=== PATIENT | male | born 1960 | race Caucasian/White ===

== ENCOUNTER 2019-12-04 19:06 | Observation (INO) ==
[2019-12-04] MEDS ORDERED: SODIUM CHLORIDE 0.9% 1000ML 2,000 ML IV ONE (19:30)
[2019-12-04] MEDS ORDERED: KETOROLAC TROMETHAMINE 15 MG/ML VIAL IV ONE (19:30)
[2019-12-04 20:14] LABS: Basophils # (auto) 0.03 K/uL (0-0.2); Basophils % (auto) 0.2 %; Eosinophils # (auto) 0.05 K/uL (0-0.5); Eosinophils % (auto) 0.4 %; Hematocrit (blood only) 40.1 % (42-52); Hemoglobin 14.4 g/dL (14.0-18.0); Immature Granulocytes # (auto) 0.06 K/uL (0.00-0.02); Immature Granulocytes % (auto) 0.5 %; Lymphocytes # (auto) 2.06 K/uL (1.2-3.4); Mean Corpuscular Hemoglobin 30.3 pg (25-34); Mean Corpuscular Hgb Conc 35.9 g/dL (32-36); Mean Corpuscular Volume 84.2 fL (80-100); Mean Platelet Volume 10.4 fL (7.4-10.4); Monocytes # (auto) 1.31 K/uL (0.11-0.59); Monocytes % (auto) 10.2 %; Neutrophils # (auto) 9.35 K/uL (1.4-6.5); Neutrophils % (auto) 72.7 %; Platelet Count 281 K/uL (130-400); RDW Coefficient of Variation 13.1 % (11.5-14.5); RDW Standard Deviation 39.7 fL (36.4-46.3); Red Blood Count 4.76 M/uL (4.7-6.1); White Blood Count 12.86 K/uL (4.8-10.8)
[2019-12-04 20:17] LABS: Appearance Urine Cloudy (Clear); Bacteria Urine Automated Negative (Negative); Bilirubin Urine Negative (Negative); Blood Urine 3+ (Negative); Color Urine Yellow; Glucose Urine UA Negative (Negative); Ketones Urine 1+ (Negative); Leukocyte Esterase Urine Negative (Negative); Nitrite Urine Negative (Negative); Protein Urine Negative (Negative); RBC Urine Automated 0-4 /hpf (0-4); Specific Gravity Urine 1.015 (1.000-1.030); Urobilinogen Urine Negative (Negative)
--- NOTE | 2019-12-04 20:17 | Emergency Department Note ---
Impression & Plan CODY (acute kidney injury), HTN (hypertension), Acute dehydration, Back pain ED Provider Note NAME: RUTH CAMP AGE: 59 SEX: M : 1960 ARRIVES VIA: Walk-In INFORMANT: Patient ED PROVIDER(S): Kishan Merritt DO CHIEF COMPLAINT: Back pain HPI: Patient is a 59-year-old male presents the ER for bilateral back pain. He notes this started in the past 24 hours while working in the [employer] since yesterday. He denies any weakness or numbness in his legs. No dysuria urgency or frequency. He notes he has been drinking a lot of fluids but urinating much less frequently. He denies any dysuria, urgency or frequency. Does not feel as though he has to urinate at this time. No belly pain. No chest pain shortness of breath. No other exacerbating or remitting factors with the exception that his pain is worse with lifting and twisting turning and bending. He notes it is also better when he walks hunched over. ROS: See above HPI for pertinent positives & negatives. A total of 10 systems reviewed and were otherwise negative. PAST MEDICAL HISTORY:See Below PAST SURGICAL HISTORY:See Below FAMILY HISTORY:See Below SOCIAL HISTORY:See Below HOME MEDICATIONS:See Below ALLERGIES:See Below VITALS:See Below PHYSICAL EXAMINATION: GENERAL: Sitting up in bed, alert, well appearing, well nourished, no distress, non-toxic EYE EXAM: normal conjunctiva. OROPHARYNX: no exudate, no erythema, lips, buccal mucosa, and tongue normal and mucous membranes are moist NECK: supple, no nuchal rigidity, no adenopathy, non-tender LUNGS: Clear to auscultation. Normal chest wall mechanics HEART: no murmurs, S1 normal and S2 normal ABDOMEN: abdomen soft, non-tender, normo-active bowel sounds, no masses, no rebound or guarding. BACK: Back is symmetrical on inspection and there is no deformity, no midline tenderness, tenderness in the bilateral flanks. SKIN: no rashes and no bruising UPPER EXTREMITIES: upper extremities are grossly normal. LOWER EXTREMITIES: No pitting edema. Flexion and extension of the hips, knees, ankles, and EHL 5/5 bilaterally. Gross sensation is intact. DPs are 2/4 bilateral. Ambulates without difficulty NEURO EXAM: Normal sensorium, cranial nerves II-XII grossly intact, normal speech, no gross weakness of arms. MEDICAL DECISION MAKING: Patient is a 59-year-old male who presents the ER for back pain. He notes he started working within the past 48 hours. He has lower back pain which is worse with twisting turning and bending. He notes he has also been drinking a lot more fluids but has not been urinating. He notes he is urinated once today after 14 bottles of liquids. IV was established blood work was obtained. Labs show mild leukocytosis 12,000. No significant anemia. BMP with mild hyponatremia. Creatinine significantly elevated 2.44. Lactate negative. LFTs are negative. Lipase was normal. UA with a small amount hematuria. Patient was given 2 L IV fluids. X-rays of the lumbar spine were unremarkable. Patient was updated bedside. Discussed with the hospitalist for admission secondary to CODY and dehydration. Triage Nursing notes reviewed. Prior medical records reviewed Vital Signs: reviewed and remarkable for hypertensive and tachycardic Differential diagnosis: Differential diagnoses includes but is not limited to lumbar radiculopathy, kidney stone, muscle strain, facture, cauda equina, mass, and disc herniation. ER treatment provided: See below Diagnostics interpreted by me: ECG: none Cardiac Monitoring: An order was placed for continuous cardiac monitoring. The monitor shows a rate of 101 with sinus rhythm. Laboratory studies: As stated above and show below. Imaging studies: X-rays of the lumbar spine show no acute fractures. Consultation(s): Discussed with Dr. Davis for admission. ED COURSE: Procedures: none Critical Care: None Past Med/Surg History Social History Preferred Language: Vietnamese Feels Safe at Home: Yes Smoking Status: Current some day smoker Allergies Allergies Allergy/AdvReac Type Severity Reaction Status Date / Time lamotrigine [From Lamictal] Allergy Rash Verified 12/04/19 21:24 red (food color) Allergy Rash Verified 12/04/19 21:24 Sulfa (Sulfonamide Allergy Rash Verified 12/04/19 21:24 Antibiotics) Home Meds Home Medications Medication Instructions Recorded Confirmed divalproex 250 mg PO DAILY #60 06/12/16 12/04/19 buspirone 10 mg PO DAILY 09/18/19 12/04/19 gabapentin [Neurontin] 300 mg PO DAILY 09/18/19 12/04/19 lisinopril 10 mg PO DAILY 09/18/19 12/04/19 metformin 1,000 mg PO DAILY 09/18/19 12/04/19 naltrexone 50 mg PO DAILY 09/18/19 12/04/19 acetaminophen [Tylenol] 650 mg PO TID PRN 12/04/19 12/04/19 lurasidone [Latuda] 40 mg PO DAILY 12/04/19 12/04/19 magnesium oxide 400 mg PO DAILY 12/04/19 12/04/19 sod phos di, mono-K phos mono 1 tab PO DAILY 12/04/19 12/04/19 [Phosphorous] venlafaxine 37.5 mg PO DAILY 12/04/19 12/04/19 venlafaxine 75 mg PO DAILY 12/04/19 12/04/19 Results & Data (ED) Vital Signs Vital Signs - 24 hr 12/04/19 19:12 12/04/19 21:07 12/04/19 21:08 Temperature 37.1 C Temperature Source Oral Pulse Rate 110 H Pulse Rate [Apical] 92 H Respiratory Rate 20 18 Respiratory Depth Normal Blood Pressure 142/78 H Blood Pressure [Right Arm] 152/89 H Blood Pressure Mean 99 Blood Pressure Mean [Right Arm] 110 Pulse Oximetry 95 98 98 Oxygen Delivery Method Room Air Room Air Room Air Sepsis Recent Fever Within 48 Hours No Sepsis New/Unexplained Change in Mental Status No Sepsis Action Taken by Nursing No Action Required Laboratory Data Result diagrams: 12/04/19 20:05 12/04/19 20:05 Lab Results 12/04/19 12/04/19 12/04/19 Range/Units 20:05 20:05 20:05 WBC 12.86 H (4.8-10.8) K/uL RBC 4.76 (4.7-6.1) M/uL Hgb 14.4 (14.0-18.0) g/dL Hct 40.1 L (42-52) % MCV 84.2 (80-100) fL MCH 30.3 (25-34) pg MCHC 35.9 (32-36) g/dL RDW Std Deviation 39.7 (36.4-46.3) fL RDW Coeff of Yenny 13.1 (11.5-14.5) % Plt Count 281 (130-400) K/uL MPV 10.4 (7.4-10.4) fL Immature Gran % (Auto) 0.5 % Neut % (Auto) 72.7 % Lymph % (Auto) 16.0 % [place] % (Auto) 10.2 % Eos % (Auto) 0.4 % Baso % (Auto) 0.2 % Immature Gran # (Auto) 0.06 H (0.00-0.02) K/uL Neut # (Auto) 9.35 H (1.4-6.5) K/uL Lymph # (Auto) 2.06 (1.2-3.4) K/uL [place] # (Auto) 1.31 H (0.11-0.59) K/uL Eos # (Auto) 0.05 (0-0.5) K/uL Baso # (Auto) 0.03 (0-0.2) K/uL Sodium 128 L (136-145) mmol/L Potassium 3.9 (3.5-5.1) mmol/L Chloride 94 L (98-107) mmol/L Carbon Dioxide 23 (21-32) mmol/L Anion Gap 11.0 (3-11) BUN 34 H (7-18) mg/dl Creatinine 2.44 H (0.6-1.4) mg/dl Est Cr Clr Drug Dosing 39.0 ml/min Est GFR ( Amer) 32.1 Est GFR (Non-Af Amer) 27.7 BUN/Creatinine Ratio 13.7 (10-20) Glucose 132 H (70-99) mg/dl Osmolality (280-300) mOsm/kg Lactate (0.4-2.0) mmol/L Calcium 9.7 (8.5-10.1) mg/dl Magnesium 2.2 (1.8-2.4) mg/dl Total Bilirubin 0.8 (0.2-1) mg/dl AST 186 H (15-37) U/L ALT 73 (12-78) U/L Alkaline Phosphatase 95 (45-117) U/L Total Protein 7.9 (6.4-8.2) gm/dl Albumin 4.0 (3.4-5.0) gm/dl Globulin 3.9 (2.5-4.0) gm/dl Albumin/Globulin Ratio 1.0 (0.9-2) Lipase 72 L (73-393) U/L Procalcitonin (0-0.5) ng/ml TSH 1.930 (0.300-4.500) uIu/ml Urine Color Yellow Urine Appearance Cloudy A (Clear) Urine pH 5.0 (4.5-7.5) Ur Specific [place] 1.015 (1.000-1.030) Urine Protein Negative (Negative) Urine Glucose (UA) Negative (Negative) Urine Ketones 1+ H (Negative) Urine Blood 3+ H (Negative) Urine Nitrite Negative (Negative) Urine Bilirubin Negative (Negative) Urine Urobilinogen Negative (Negative) Ur Leukocyte Esterase Negative (Negative) Urine WBC (Auto) 1-5 (0-5) /hpf Urine RBC (Auto) 0-4 (0-4) /hpf U Hyaline Cast (Auto) 1-5 (0-5) /lpf U Epithel Cells (Auto) 10-20 H (0-5) /lpf Urine Bacteria (Auto) Negative (Negative) Valproic Acid (50-100) mcg/ml 12/04/19 12/04/19 12/04/19 Range/Units 20:05 20:05 20:05 WBC (4.8-10.8) K/uL RBC (4.7-6.1) M/uL Hgb (14.0-18.0) g/dL Hct (42-52) % MCV (80-100) fL MCH (25-34) pg MCHC (32-36) g/dL RDW Std Deviation (36.4-46.3) fL RDW Coeff of Yenny (11.5-14.5) % Plt Count (130-400) K/uL MPV (7.4-10.4) fL Immature Gran % (Auto) % Neut % (Auto) % Lymph % (Auto) % [place] % (Auto) % Eos % (Auto) % Baso % (Auto) % Immature Gran # (Auto) (0.00-0.02) K/uL Neut # (Auto) (1.4-6.5) K/uL Lymph # (Auto) (1.2-3.4) K/uL [place] # (Auto) (0.11-0.59) K/uL Eos # (Auto) (0-0.5) K/uL Baso # (Auto) (0-0.2) K/uL Sodium (136-145) mmol/L Potassium (3.5-5.1) mmol/L Chloride (98-107) mmol/L Carbon Dioxide (21-32) mmol/L Anion Gap (3-11) BUN (7-18) mg/dl Creatinine (0.6-1.4) mg/dl Est Cr Clr Drug Dosing ml/min Est GFR ( Amer) Est GFR (Non-Af Amer) BUN/Creatinine Ratio (10-20) Glucose (70-99) mg/dl Osmolality 277 L (280-300) mOsm/kg Lactate (0.4-2.0) mmol/L Calcium (8.5-10.1) mg/dl Magnesium (1.8-2.4) mg/dl Total Bilirubin (0.2-1) mg/dl AST (15-37) U/L ALT (12-78) U/L Alkaline Phosphatase (45-117) U/L Total Protein (6.4-8.2) gm/dl Albumin (3.4-5.0) gm/dl Globulin (2.5-4.0) gm/dl Albumin/Globulin Ratio (0.9-2) Lipase (73-393) U/L Procalcitonin 0.35 (0-0.5) ng/ml TSH (0.300-4.500) uIu/ml Urine Color Urine Appearance (Clear) Urine pH (4.5-7.5) Ur Specific [place] (1.000-1.030) Urine Protein (Negative) Urine Glucose (UA) (Negative) Urine Ketones (Negative) Urine Blood (Negative) Urine Nitrite (Negative) Urine Bilirubin (Negative) Urine Urobilinogen (Negative) Ur Leukocyte Esterase (Negative) Urine WBC (Auto) (0-5) /hpf Urine RBC (Auto) (0-4) /hpf U Hyaline Cast (Auto) (0-5) /lpf U Epithel Cells (Auto) (0-5) /lpf Urine Bacteria (Auto) (Negative) Valproic Acid 28 L (50-100) mcg/ml 12/04/19 Range/Units 21:30 WBC (4.8-10.8) K/uL RBC (4.7-6.1) M/uL Hgb (14.0-18.0) g/dL Hct (42-52) % MCV (80-100) fL MCH (25-34) pg MCHC (32-36) g/dL RDW Std Deviation (36.4-46.3) fL RDW Coeff of Yenny (11.5-14.5) % Plt Count (130-400) K/uL MPV (7.4-10.4) fL Immature Gran % (Auto) % Neut % (Auto) % Lymph % (Auto) % [place] % (Auto) % Eos % (Auto) % Baso % (Auto) % Immature Gran # (Auto) (0.00-0.02) K/uL Neut # (Auto) (1.4-6.5) K/uL Lymph # (Auto) (1.2-3.4) K/uL [place] # (Auto) (0.11-0.59) K/uL Eos # (Auto) (0-0.5) K/uL Baso # (Auto) (0-0.2) K/uL Sodium (136-145) mmol/L Potassium (3.5-5.1) mmol/L Chloride (98-107) mmol/L Carbon Dioxide (21-32) mmol/L Anion Gap (3-11) BUN (7-18) mg/dl Creatinine (0.6-1.4) mg/dl Est Cr Clr Drug Dosing ml/min Est GFR ( Amer) Est GFR (Non-Af Amer) BUN/Creatinine Ratio (10-20) Glucose (70-99) mg/dl Osmolality (280-300) mOsm/kg Lactate 1.1 (0.4-2.0) mmol/L Calcium (8.5-10.1) mg/dl Magnesium (1.8-2.4) mg/dl Total Bilirubin (0.2-1) mg/dl AST (15-37) U/L ALT (12-78) U/L Alkaline Phosphatase (45-117) U/L Total Protein (6.4-8.2) gm/dl Albumin (3.4-5.0) gm/dl Globulin (2.5-4.0) gm/dl Albumin/Globulin Ratio (0.9-2) Lipase (73-393) U/L Procalcitonin (0-0.5) ng/ml TSH (0.300-4.500) uIu/ml Urine Color Urine Appearance (Clear) Urine pH (4.5-7.5) Ur Specific [place] (1.000-1.030) Urine Protein (Negative) Urine Glucose (UA) (Negative) Urine Ketones (Negative) Urine Blood (Negative) Urine Nitrite (Negative) Urine Bilirubin (Negative) Urine Urobilinogen (Negative) Ur Leukocyte Esterase (Negative) Urine WBC (Auto) (0-5) /hpf Urine RBC (Auto) (0-4) /hpf U Hyaline Cast (Auto) (0-5) /lpf U Epithel Cells (Auto) (0-5) /lpf Urine Bacteria (Auto) (Negative) Valproic Acid (50-100) mcg/ml Administered Medications Discontinued Medications Clonidine HCl (Catapres) 0.1 mg PO NOW STA Stop: 12/04/19 21:19 Last Admin: 12/04/19 21:57 Dose: Not Given Documented by: [id number] Sodium Chloride (Nss 1000ml) 2,000 mls @ 999 mls/hr IV .Q2H1M ONE Stop: 12/04/19 21:30 Last Infusion: 12/04/19 21:57 Dose: 0 mls/hr Documented by: [id number] Admin: 12/04/19 20:08 Dose: 999 mls/hr Documented by: [id number] Ketorolac Tromethamine (Toradol) 10 mg IV NOW ONE Stop: 12/04/19 19:31 Last Admin: 12/04/19 20:08 Dose: 10 mg Documented by: [id number] Discharge Plan Visit Data Chief Complaint: Flank Pain Stated Complaint: FLANK PAIN ED Provider: Kishan Merritt Discharge Problem: CODY (acute kidney injury), HTN (hypertension), Acute dehydration, Back pain Forms Stand Alone Forms: My [facility] Prescriptions Prescriptions: No Action divalproex 250 mg Tablet Extended Release 24 Hr 250 mg PO DAILY Qty: 60 RF: 0 naltrexone 50 mg tablet 50 mg PO DAILY RF: 0 buspirone 10 mg tablet 10 mg PO DAILY RF: 0 lisinopril 10 mg Tablet 10 mg PO DAILY RF: 0 gabapentin [Neurontin] 300 mg capsule 300 mg PO DAILY RF: 0 metformin 500 mg Tablet Extended Release 24hr 1,000 mg PO DAILY RF: 0 venlafaxine 75 mg capsule,extended release 24hr 75 mg PO DAILY RF: 0 venlafaxine 37.5 mg capsule,extended release 24hr 37.5 mg PO DAILY RF: 0 Latuda 40 mg tablet 40 mg PO DAILY RF: 0 Phosphorous 250 mg Tablet 1 tab PO DAILY RF: 0 magnesium oxide 400 mg magnesium Tablet 400 mg PO DAILY RF: 0 acetaminophen [Tylenol] 325 mg Tablet 650 mg PO TID PRN (Reason: Pain) RF: 0 Discharge Problem: HTN (hypertension) Qualifiers: Hypertension type: unspecified Qualified Code(s): I10 - Essential (primary) hypertension Back pain Qualifiers: Back pain location: low back pain Chronicity: acute Back pain laterality: unspecified Sciatica presence: unspecified whether sciatica present Qualified Code(s): M54.5 - Low back pain
[2019-12-04 20:32] LABS: BUN Creatinine Ratio 13.7 (10-20); Calcium 9.7 mg/dl (8.5-10.1); Est GFR (African American) 32.1; Est GFR (Non-African American) 27.7; Potassium 3.9 mmol/L (3.5-5.1)
[2019-12-04 20:35] LABS: Bilirubin,Total 0.8 mg/dl (0.2-1); Globulin 3.9 gm/dl (2.5-4.0); Total Protein 7.9 gm/dl (6.4-8.2)
--- NOTE | 2019-12-04 20:46 | XRay Report ---
XR lumbar spine 2-3V CLINICAL HISTORY: lower back pain pain COMPARISON STUDY: No previous studies for comparison. FINDINGS: Vertebral body stature is normal. There is moderate degenerative disc changes throughout. There is grade 1 anterolisthesis of L5 on S1. There is a potential posterior spondylolysis. No evidence for compression deformity. Moderate anterior osteophytic changes throughout. IMPRESSION: 1. Moderate generalized degenerative disc change at the entire lumbar region. 2. Grade 1 anterolisthesis on L5 on S1, possibly combined with a posterior spondylolysis. 3. No evidence for compression deformity. ACT 112: Negative or not required by law. The above report was generated using voice recognition software. It may contain grammatical, syntax or spelling errors. Electronically signed by: Fabian Field M.D. 12/04/2019 8:44 PM
[2019-12-04 21:02] LABS: Magnesium 2.2 mg/dl (1.8-2.4)
--- NOTE | 2019-12-04 21:02 | XRay Report ---
XR chest 1V portable CLINICAL HISTORY: renal failure dyspnea COMPARISON STUDY: No previous studies for comparison. FINDINGS: Moderate cardiomegaly. Diaphragms are smooth. Lungs are clear. IMPRESSION: Moderate cardiomegaly. Otherwise negative study. ACT 112: Negative or not required by law. The above report was generated using voice recognition software. It may contain grammatical, syntax or spelling errors. Electronically signed by: Fabian Field M.D. 12/04/2019 9:01 PM
[2019-12-04] MEDS ORDERED: cloNIDine HCL 0.1 MG TAB PO STA (21:18)
[2019-12-04 21:21] LABS: Thyroid Stimulating Hormone 1.93 uIu/ml (0.300-4.500)
--- NOTE | 2019-12-04 21:43 | History & Physical Report ---
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 Heparin subcu Full code Text document was generated using [email or web address] voice recognition software. It may contain grammatical or spelling errors. Kindly contact undersigned for clarification of any documentation item in question. History of Present Illness Chief Complaint: Back pain Primary Care Provider: Manuel Narvaez DO History obtained from patient and records. Medical history significant for hypertension, hyperlipidemia, mood disorder, prediabetes on metformin Rx, past alcohol abuse on naltrexone Rx, ongoing tobacco abuse. 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 Generalized weakness. No chest pain. Shortness of breath from being weak. No fever, no chills. Patient thinks he is drinking enough water. Patient took 4 tablets of OTC NSAID for pain. Not peeing as much. No fluid retention. Patient consulted ER for evaluation. Medical History as above Surgical History : Dental surgery Family History : Pancreatic cancer, breast cancer, diabetes, stroke Personal/Social history : Half pack daily, past alcohol abuse, construction work Allergies Allergy/AdvReac Type Severity Reaction Status Date / Time lamotrigine [From Lamictal] Allergy Rash Verified 12/04/19 21:24 red (food color) Allergy Rash Verified 12/04/19 21:24 Sulfa (Sulfonamide Allergy Rash Verified 12/04/19 21:24 Antibiotics) Home Medications Home Medications Medication Instructions Recorded Confirmed Type divalproex 250 mg PO DAILY #60 06/12/16 12/04/19 History buspirone 10 mg PO DAILY 09/18/19 12/04/19 History gabapentin [Neurontin] 300 mg PO DAILY 09/18/19 12/04/19 History lisinopril 10 mg PO DAILY 09/18/19 12/04/19 History metformin 1,000 mg PO DAILY 09/18/19 12/04/19 History naltrexone 50 mg PO DAILY 09/18/19 12/04/19 History acetaminophen [Tylenol] 650 mg PO TID PRN 12/04/19 12/04/19 History lurasidone [Latuda] 40 mg PO DAILY 12/04/19 12/04/19 History magnesium oxide 400 mg PO DAILY 12/04/19 12/04/19 History sod phos di, mono-K phos mono 1 tab PO DAILY 12/04/19 12/04/19 History [Phosphorous] venlafaxine 37.5 mg PO DAILY 12/04/19 12/04/19 History venlafaxine 75 mg PO DAILY 12/04/19 12/04/19 History Past Med/Surg History Social History Preferred Language: Syriac Communication Ability: Effective Tax Attorney Required: No Beliefs That Will Affect Care: None Current Living Situation: Significant Other Other Information That Helps Us Care for You: No Feels Safe at Home: Yes Safety Concerns: Feels Safe At This Time Smoking Status: Current every day smoker Tobacco Type: cigarettes ; Hx Alcohol Use: No Hx Substance Use: No Review of Systems Review of Systems: As per HPI, all 10 systems reviewed, all other ROS negative Physical Exam Physical Exam: GENERAL: Comfortable, pleasant, obese, no respiratory distress SKIN: Normal color, warm HEENT: [place] palpebral conjunctivae, no ptosis, dry buccal mucosa NECK : Supple, short neck, no tenderness CHEST : CTA, no tenderness HEART : RRR, no obvious murmurs ABDOMEN: Some distention, nontender BACK : Low back tenderness, negative straight leg raise test EXTREMITIES : No LE swelling/tenderness, no other conspicuous deformities noted NEUROLOGIC : Coherent, no facial asymmetry, no other gross focality Results & Data Results & Data ([facility]) Vital Signs (Past 12 Hours) Vital Signs Temp Pulse Pulse Resp BP BP Pulse Ox 12/04/19 21:08 98 12/04/19 21:07 92 H 18 152/89 H 98 12/04/19 19:12 37.1 C 110 H 20 142/78 H 95 Laboratory Results Laboratory Results WBC 12.86 K/uL (4.8-10.8) H 12/04/19 20:05 RBC 4.76 M/uL (4.7-6.1) 12/04/19 20:05 Hgb 14.4 g/dL (14.0-18.0) 12/04/19 20:05 Hct 40.1 % (42-52) L 12/04/19 20:05 MCV 84.2 fL (80-100) 12/04/19 20:05 MCH 30.3 pg (25-34) 12/04/19 20:05 MCHC 35.9 g/dL (32-36) 12/04/19 20:05 RDW Std Deviation 39.7 fL (36.4-46.3) 12/04/19 20:05 RDW Coeff of Yenny 13.1 % (11.5-14.5) 12/04/19 20:05 Plt Count 281 K/uL (130-400) 12/04/19 20: MPV 10.4 fL (7.4-10.4) 12/04/19 20:05 Immature Gran % (Auto) 0.5 % 12/04/19 20:05 Neut % (Auto) 72.7 % 12/04/19 20:05 Lymph % (Auto) 16.0 % 12/04/19 20:05 [place] % (Auto) 10.2 % 12/04/19 20:05 Eos % (Auto) 0.4 % 12/04/19 20:05 Baso % (Auto) 0.2 % 12/04/19 20:05 Immature Gran # (Auto) 0.06 K/uL (0.00-0.02) H 12/04/19 20:05 Neut # (Auto) 9.35 K/uL (1.4-6.5) H 12/04/19 20:05 Lymph # (Auto) 2.06 K/uL (1.2-3.4) 12/04/19 20:05 [place] # (Auto) 1.31 K/uL (0.11-0.59) H 12/04/19 20:05 Eos # (Auto) 0.05 K/uL (0-0.5) 12/04/19 20:05 Baso # (Auto) 0.03 K/uL (0-0.2) 12/04/19 20:05 Sodium 128 mmol/L (136-145) L 12/04/19 20:05 Potassium 3.9 mmol/L (3.5-5.1) 06/03/20 20:05 Chloride 94 mmol/L (98-107) L 12/04/19 20:05 Carbon Dioxide 23 mmol/L (21-32) 12/04/19 20:05 Anion Gap 11.0 (3-11) 12/04/19 20:05 BUN 34 mg/dl (7-18) H 12/04/19 20:05 Creatinine 2.44 mg/dl (0.6-1.4) H 12/04/19 20:05 Est Cr Clr Drug Dosing 39.0 ml/min 12/04/19 20:05 Est GFR ( Amer) 32.1 12/04/19 20: Est GFR (Non-Af Amer) 27.7 12/04/19 20:05 BUN/Creatinine Ratio 13.7 (10-20) 12/04/19 20: Glucose 132 mg/dl (70-99) H 12/04/19 20:05 Osmolality 277 mOsm/kg (280-300) L 12/04/19 20: Calcium 9.7 mg/dl (8.5-10.1) 12/04/19 20: Magnesium 2.2 mg/dl (1.8-2.4) 12/04/19 20: Total Bilirubin 0.8 mg/dl (0.2-1) 12/04/19 20:05 AST 186 U/L (15-37) H 12/04/19 20:05 ALT 73 U/L (12-78) 12/04/19 20:05 Alkaline Phosphatase 95 U/L (45-117) 12/04/19 20: Total Protein 7.9 gm/dl (6.4-8.2) 12/04/19 20: Albumin 4.0 gm/dl (3.4-5.0) 12/04/19 20: Globulin 3.9 gm/dl (2.5-4.0) 12/04/19 20: Albumin/Globulin Ratio 1.0 (0.9-2) 12/04/19 20: Lipase 72 U/L (73-393) L 12/04/19 20: TSH 1.930 uIu/ml (0.300-4.500) 12/04/19 20: Urine Color Yellow 12/04/19 20:05 Urine Appearance Cloudy (Clear) A 12/04/19 20:05 Urine pH 5.0 (4.5-7.5) 12/04/19 20:05 Ur Specific [place] 1.015 (1.000-1.030) 12/04/19 20:05 Urine Protein Negative (Negative) 12/04/19 20:05 Urine Glucose (UA) Negative (Negative) 12/04/19 20:05 Urine Ketones 1+ (Negative) H 12/04/19 20:05 Urine Blood 3+ (Negative) H 12/04/19 20:05 Urine Nitrite Negative (Negative) 12/04/19 20:05 Urine Bilirubin Negative (Negative) 12/04/19 20:05 Urine Urobilinogen Negative (Negative) 12/04/19 20:05 Ur Leukocyte Esterase Negative (Negative) 12/04/19 20:05 Urine WBC (Auto) 1-5 /hpf (0-5) 12/04/19 20:05 Urine RBC (Auto) 0-4 /hpf (0-4) 12/04/19 20:05 U Hyaline Cast (Auto) 1-5 /lpf (0-5) 12/04/19 20:05 U Epithel Cells (Auto) 10-20 /lpf (0-5) H 12/04/19 20:05 Urine Bacteria (Auto) Negative (Negative) 12/04/19 20:05 Valproic Acid 28 mcg/ml (50-100) L 12/04/19 20:05 Diagnostic Findings LS XR: 1. Moderate generalized degenerative disc change at the entire lumbar region. 2. Grade 1 anterolisthesis on L5 on S1, possibly combined with a posterior spondylolysis. 3. No evidence for compression deformity. Chest x-ray : Moderate cardiomegaly. Otherwise negative study.
[2019-12-04] MEDS ORDERED: HYDROmorphone INJ 0.5 MG/0.5 ML SYR IV PRN (23:10)
[2019-12-04] MEDS ORDERED: GLUCAGON FOR INJ 1 MG VIAL SQ PRN (23:10)
[2019-12-04] MEDS ORDERED: LORazepam 0.5 MG/1 ML VIAL IV PRN (23:10)
[2019-12-04] MEDS ORDERED: PROMETHAZINE HCL 12.5 MG in SODIUM CHLORIDE 0.9% 50 ML IV PRN (23:10)
[2019-12-04] MEDS ORDERED: CARBOHYDRATES FOR HYPOGLYCEMIA PO PRN (23:10)
[2019-12-04] MEDS ORDERED: GLUCOSE 40% GEL 15 GM TUBE PO PRN (23:10)
[2019-12-04] MEDS ORDERED: GLUCOSE 10 TABS/TUBE PO PRN (23:10)
[2019-12-04] MEDS ORDERED: ACETAMINOPHEN 325 MG TAB PO PRN (23:10)
[2019-12-04] MEDS ORDERED: OXYCODONE HCL IR 5 MG TAB (IMMEDIATE RELEASE) PO PRN (23:10)
[2019-12-04] MEDS ORDERED: DEXTROSE 50% 50 ML SYRINGE IV PRN (23:10)
[2019-12-05] MEDS: NICOTINE 14 MG/24 HR PATCH TD SCH ×2 (00:21→08:27)
[2019-12-05] MEDS: HEPARIN SOD 5,000 UNIT/0.5 ML VIAL SQ SCH ×4 (00:21→21:20)
[2019-12-05] MEDS: INSULIN ASPART 100 UNITS/ML 3 ML PEN SC SCH ×5 (00:22→20:50)
[2019-12-05 00:50] LABS: BUN Creatinine Ratio 16.2 (10-20); Calcium 8.2 mg/dl (8.5-10.1); Creatinine Clr Calc Pharmacy 48.8 ml/min; Est GFR (African American) 41.8; Est GFR (Non-African American) 36.1; Potassium 3.7 mmol/L (3.5-5.1)
[2019-12-05] MEDS ORDERED: INSULIN GLARGINE SOLOSTAR 100 UNITS/ML 3 ML PEN SC STA (02:11)
[2019-12-05 04:14] LABS: Basophils # (auto) 0.06 K/uL (0-0.2); Basophils % (auto) 0.7 %; Eosinophils # (auto) 0.21 K/uL (0-0.5); Eosinophils % (auto) 2.4 %; Hematocrit (blood only) 39.9 % (42-52); Hemoglobin 13.6 g/dL (14.0-18.0); Immature Granulocytes # (auto) 0.04 K/uL (0.00-0.02); Immature Granulocytes % (auto) 0.5 %; Lymphocytes # (auto) 2.46 K/uL (1.2-3.4); Lymphocytes % (auto) 27.8 %; Mean Corpuscular Hemoglobin 28.9 pg (25-34); Mean Corpuscular Hgb Conc 34.1 g/dL (32-36); Mean Corpuscular Volume 84.9 fL (80-100); Mean Platelet Volume 10.6 fL (7.4-10.4); Monocytes # (auto) 1.32 K/uL (0.11-0.59); Monocytes % (auto) 14.9 %; Neutrophils # (auto) 4.77 K/uL (1.4-6.5); Neutrophils % (auto) 53.7 %; Platelet Count 263 K/uL (130-400); RDW Standard Deviation 40.5 fL (36.4-46.3); White Blood Count 8.86 K/uL (4.8-10.8)
[2019-12-05 04:31] LABS: BUN Creatinine Ratio 17.6 (10-20); Calcium 8.6 mg/dl (8.5-10.1); Creatinine Clr Calc Pharmacy 62.5 ml/min; Est GFR (African American) 56.4; Est GFR (Non-African American) 48.7; Potassium 3.7 mmol/L (3.5-5.1)
[2019-12-05] MEDS ORDERED: LACTATED RINGER'S 1,000 ML IV ONE (04:58)
[2019-12-05] MEDS: GABAPENTIN 300 MG CAP PO SCH (08:27)
[2019-12-05] MEDS: LURASIDONE HCL 40 MG TAB PO SCH (08:27)
[2019-12-05] MEDS: NALTREXONE HCL 50 MG TAB PO SCH (08:27)
[2019-12-05] MEDS: VENLAFAXINE HCL XR 37.5 MG CAPXR PO SCH (08:27)
[2019-12-05] MEDS: VENLAFAXINE HCL XR 75 MG CAPXR PO SCH (08:27)
[2019-12-05] MEDS: DIVALPROEX EXTENDED RELEASE 250 MG TABCR PO SCH (08:27)
[2019-12-05] MEDS ORDERED: LURASIDONE HCL 40 MG TAB PO SCH (09:00)
--- NOTE | 2019-12-05 15:06 | Hospitalist Progress Note ---
Date of Service December 05, 2019 Assessment & Plan (1) CODY (acute kidney injury): Possible related to NSAID used (Pt said that he has been taking alot of Ibuprofen Creatinine on admission 2.4, then improved to 1.5 today Continue gentle IVF Continue to hold lisinopril Will avoid nephrotoxic agents Back pain Lumbar Xray showed moderate generalized degenerative disc change at the entire lumbar region. Grade 1 anterolisthesis on L5 on S1, possibly combined with a posterior spondylolysis. Continue tylenol and gabapentin for pain Will add tramadol and Lidocaine Diabetes type 2 Last Hba1c 8.2 on 09/18 Will check Hab1c Continue to hold metformin Continue lantus and insulin sliding scale Monitor BS HTN BP stable Lisinopril on hold due to CODY Hx alcohol abuse on Naltrexone Rx Tobacco abuse Counseling on smoking cessation Continue Nicotine patch DVT prophylaxis on Heparin subcu Full code Admission and Anticipated Discharge Date Admission Date: December 04, 2019 Subjective Pt was seen and examined Lying in bed with no distress Pt said that he continues to have tenderness in his lower back pain worst with movement Denies any chest pain, palpitation and SOB Physical Exam Physical Exam: General- No acute distress Head- atraumatic Eyes- PERRL, EOMI, ENT- oropharynx clear Neck- supple, no JVD Lungs- clear to auscultation Heart- regular rhythm; no murmur Abdomen- normal bowel sounds, soft, nontender Extremities- no calf tenderness Neuro- alert, oriented x 3; PERRL, EOMI; no facial palsy; no dysarthria Skin- warm & dry Results & Data Results & Data ([facility]) Vital Signs (Past 12 Hours) Vital Signs Temp Pulse Pulse Resp BP Pulse Ox 12/05/19 11:33 36.8 C 77 18 103/59 L 92 12/05/19 07:55 84 12/05/19 07:20 36.5 C 83 16 114/75 95 12/05/19 04:38 36.7 C 81 18 108/68 95
[2019-12-05] MEDS ORDERED: TRAMADOL HCL 50 MG TABLET PO PRN (15:10)
[2019-12-05] MEDS: LIDOCAINE 5% 1 PATCH TD SCH (16:33)
[2019-12-06] MEDS: HEPARIN SOD 5,000 UNIT/0.5 ML VIAL SQ SCH ×2 (05:45→13:07)
[2019-12-06 06:18] LABS: Basophils # (auto) 0.04 K/uL (0-0.2); Basophils % (auto) 0.7 %; Eosinophils # (auto) 0.18 K/uL (0-0.5); Eosinophils % (auto) 3.3 %; Hematocrit (blood only) 40.2 % (42-52); Hemoglobin 13.8 g/dL (14.0-18.0); Immature Granulocytes # (auto) 0.04 K/uL (0.00-0.02); Immature Granulocytes % (auto) 0.7 %; Lymphocytes # (auto) 1.83 K/uL (1.2-3.4); Lymphocytes % (auto) 33.7 %; Mean Corpuscular Hemoglobin 30.1 pg (25-34); Mean Corpuscular Hgb Conc 34.3 g/dL (32-36); Mean Corpuscular Volume 87.6 fL (80-100); Mean Platelet Volume 10.8 fL (7.4-10.4); Monocytes # (auto) 0.59 K/uL (0.11-0.59); Monocytes % (auto) 10.9 %; Neutrophils # (auto) 2.75 K/uL (1.4-6.5); Neutrophils % (auto) 50.7 %; Platelet Count 223 K/uL (130-400); RDW Coefficient of Variation 13.3 % (11.5-14.5); RDW Standard Deviation 42.5 fL (36.4-46.3); Red Blood Count 4.59 M/uL (4.7-6.1); White Blood Count 5.43 K/uL (4.8-10.8)
[2019-12-06 07:00] LABS: BUN Creatinine Ratio 17.5 (10-20); Calcium 8.9 mg/dl (8.5-10.1); Est GFR (African American) 108.2; Est GFR (Non-African American) 93.4; Potassium 3.7 mmol/L (3.5-5.1)
[2019-12-06 07:30] LABS: Estimated Average Glucose 194 mg/dl; Hemoglobin A1C 8.4 % (4.5-5.6)
[2019-12-06] MEDS: VENLAFAXINE HCL XR 75 MG CAPXR PO SCH (08:21)
[2019-12-06] MEDS: VENLAFAXINE HCL XR 37.5 MG CAPXR PO SCH (08:21)
[2019-12-06] MEDS: NALTREXONE HCL 50 MG TAB PO SCH (08:22)
[2019-12-06] MEDS: GABAPENTIN 300 MG CAP PO SCH (08:23)
[2019-12-06] MEDS: NICOTINE 14 MG/24 HR PATCH TD SCH (08:23)
[2019-12-06] MEDS: LURASIDONE HCL 40 MG TAB PO SCH (08:23)
[2019-12-06] MEDS: DIVALPROEX EXTENDED RELEASE 250 MG TABCR PO SCH (08:23)
[2019-12-06] MEDS: LIDOCAINE 5% 1 PATCH TD SCH (08:25)
[2019-12-06] MEDS: INSULIN ASPART 100 UNITS/ML 3 ML PEN SC SCH ×2 (08:29→13:06)
[2019-12-06] MEDS ORDERED: INSULIN GLARGINE SOLOSTAR 100 UNITS/ML 3 ML PEN SC SCH (09:00)
--- NOTE | 2019-12-06 15:28 | Hospitalist Progress Note ---
Date of Service December 06, 2019 Assessment & Plan (1) CODY (acute kidney injury): Possible related to NSAID used (Pt said that he has been taking alot of Ibuprofen Creatinine on admission 2.4, then back to normal at 0.8 Received IVF Will resume Lisinopril on discharge Will avoid nephrotoxic agents for now Check BMP in 1 week Resolved Back pain Lumbar Xray showed moderate generalized degenerative disc change at the entire lumbar region. Grade 1 anterolisthesis on L5 on S1, possibly combined with a posterior spondylolysis. Continue tylenol and gabapentin for pain Advised pt to alternate NSAID with Tylenol Continue Lidocaine Pain improves Diabetes type 2 Hba1c 8.4 on 12/20 Resume metformin on discharge Consider to increase Meformin to 1 gm BID On lantus and insulin sliding scale during hospital course Monitor BS HTN BP stable Lisinopril on hold due to CODY Will resume on discharge Hx alcohol abuse on Naltrexone Rx Tobacco abuse Counseling on smoking cessation Continue Nicotine patch DVT prophylaxis on Heparin subcu Full code Disposition Will discharge home today Admission and Anticipated Discharge Date Admission Date: December 04, 2019 Subjective Pt was seen and examined Lying in bed with no distress Pt said that back pain improves Denies any chest pain, palpitation, dizziness and SOB Physical Exam Physical Exam: General- No acute distress Head- atraumatic Eyes- PERRL, EOMI, ENT- oropharynx clear Neck- supple, no JVD Lungs- clear to auscultation Heart- regular rhythm; no murmur Abdomen- normal bowel sounds, soft, nontender Extremities- no calf tenderness Neuro- alert, oriented x 3; PERRL, EOMI; no facial palsy; no dysarthria Skin- warm & dry Results & Data Results & Data ([facility]) Vital Signs (Past 12 Hours) Vital Signs Temp Pulse Pulse Resp BP BP Pulse Ox 12/06/19 11:20 36.6 C 66 18 122/71 93 12/06/19 08:00 67 12/06/19 07:39 36.3 C L 60 16 113/63 91 12/06/19 03:35 36.7 C 77 20 101/60 93
--- NOTE | 2019-12-07 00:37 | Discharge Summary ---
Date of Service December 06, 2019 Admission HPI Per Admitting Provider History obtained from patient and records. Medical history significant for hypertension, hyperlipidemia, mood disorder, prediabetes on metformin Rx, past alcohol abuse on naltrexone Rx, ongoing tobacco abuse. 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 Generalized weakness. No chest pain. Shortness of breath from being weak. No fever, no chills. Patient thinks he is drinking enough water. Patient took 4 tablets of OTC NSAID for pain. Not peeing as much. No fluid retention. Patient consulted ER for evaluation. Medical History as above Surgical History : Dental surgery Family History : Pancreatic cancer, breast cancer, diabetes, stroke Personal/Social history : Half pack daily, past alcohol abuse, construction work Admission Exam Per Admitting Provider GENERAL: Comfortable, pleasant, obese, no respiratory distress SKIN: Normal color, warm HEENT: [place] palpebral conjunctivae, no ptosis, dry buccal mucosa NECK : Supple, short neck, no tenderness CHEST : CTA, no tenderness HEART : RRR, no obvious murmurs ABDOMEN: Some distention, nontender BACK : Low back tenderness, negative straight leg raise test EXTREMITIES : No LE swelling/tenderness, no other conspicuous deformities noted NEUROLOGIC : Coherent, no facial asymmetry, no other gross focality Principal Diagnosis CODY (acute kidney injury): Back pain Diabetes type 2 Hypertension Hx alcohol abuse Tobacco abuse Discharge Exam General- No acute distress Head- atraumatic Eyes- PERRL, EOMI, ENT- oropharynx clear Neck- supple, no JVD Lungs- clear to auscultation Heart- regular rhythm; no murmur Abdomen- normal bowel sounds, soft, nontender Extremities- no calf tenderness Neuro- alert, oriented x 3; PERRL, EOMI; no facial palsy; no dysarthria Skin- warm & dry Discharge Data Allergies Allergy/AdvReac Type Severity Reaction Status Date / Time lamotrigine [From Lamictal] Allergy Rash Verified 12/04/19 21:24 red (food color) Allergy Rash Verified 12/04/19 21:24 Sulfa (Sulfonamide Allergy Rash Verified 12/04/19 21:24 Antibiotics) Consultations 12/04/19 20:39 ED Decision to Admit Stat Ordered Studies XR lumbar spine 2-3V CLINICAL HISTORY: lower back pain pain COMPARISON STUDY: No previous studies for comparison. FINDINGS: Vertebral body stature is normal. There is moderate degenerative disc changes throughout. There is grade 1 anterolisthesis of L5 on S1. There is a potential posterior spondylolysis. No evidence for compression deformity. Moderate anterior osteophytic changes throughout. IMPRESSION: 1. Moderate generalized degenerative disc change at the entire lumbar region. 2. Grade 1 anterolisthesis on L5 on S1, possibly combined with a posterior spondylolysis. 3. No evidence for compression deformity. ACT 112: Negative or not required by law. The above report was generated using voice recognition software. It may contain grammatical, syntax or spelling errors. Electronically signed by: Fabian Field M.D. 12/04/2019 8:44 PM Dictated: 12/04/192041 Transcribed: 12/04/192041 XR chest 1V portable CLINICAL HISTORY: renal failure dyspnea COMPARISON STUDY: No previous studies for comparison. FINDINGS: Moderate cardiomegaly. Diaphragms are smooth. Lungs are clear. IMPRESSION: Moderate cardiomegaly. Otherwise negative study. ACT 112: Negative or not required by law. The above report was generated using voice recognition software. It may contain grammatical, syntax or spelling errors. Electronically signed by: Fabian Field M.D. 12/04/2019 9:01 PM Dictated: 12/04/192099 Transcribed: 12/04/192099 Hospital Course (1) CODY (acute kidney injury): Possible related to NSAID used (Pt said that he has been taking alot of Ibuprofen Creatinine on admission 2.4, then back to normal at 0.8 Received IVF Will resume Lisinopril on discharge Will avoid nephrotoxic agents for now Check BMP in 1 week Resolved Back pain Lumbar Xray showed moderate generalized degenerative disc change at the entire lumbar region. Grade 1 anterolisthesis on L5 on S1, possibly combined with a posterior spondylolysis. Continue tylenol and gabapentin for pain Advised pt to alternate NSAID with Tylenol Continue Lidocaine Pain improves Diabetes type 2 Hba1c 8.4 on 12/20 Resume metformin on discharge Consider to increase Meformin to 1 gm BID On lantus and insulin sliding scale during hospital course Monitor BS HTN BP stable Lisinopril on hold due to CODY Will resume on discharge Hx alcohol abuse on Naltrexone Rx Tobacco abuse Counseling on smoking cessation Continue Nicotine patch DVT prophylaxis on Heparin subcu Full code Disposition Will discharge home today Total Time Total Time Spent Total Time Spent (In Minutes): 35 minutes Total Time Includes: Examination of the Patient, Discharge Planning, Medication Reconciliation, Communication With Other Providers and Other Discharge Plan Discharge Items Patient Disposition: Home - Self-Care Reason For Visit: ARF Discharge Diagnosis: CODY (acute kidney injury): Back pain Diabetes type 2 Hypertension Hx alcohol abuse Tobacco abuse Activity: Resume your previous activity Non-emergency contact: Primary Care Provider Call non-emergency contact if: you have any medication questions Follow-up/Referrals: Manuel Narvaez DO [Primary Care Provider] - 12/13/19 10:40 am (12/13/2019 10:40 AM Provider Dax Westfall MD Department [facility] ) Diet: Carb Consistent or DM2 Addtl Attending Provider Instructions: Follow up with your primary care provider Dr. Narvaez on 12/12 @ 10:40 AM Follow up a healthy diabetes diet and limited concentrated sweet intake Check BMP in 1 to 2 week to monitor your kidney function Pending Studies at Discharge: No Stand-Alone Forms: My [employer], Smoking Cessation Medications and DC Order Prescriptions: New lidocaine 5 % Adhesive Patch,Medicated 1 patch transdermal QAM PRN (Reason: pain) Qty: 10 RF: 0 Continued divalproex 250 mg Tablet Extended Release 24 Hr 250 mg PO DAILY Qty: 60 RF: 0 naltrexone 50 mg tablet 50 mg PO DAILY RF: 0 buspirone 10 mg tablet 10 mg PO DAILY RF: 0 lisinopril 10 mg Tablet 10 mg PO DAILY RF: 0 gabapentin [Neurontin] 300 mg capsule 300 mg PO DAILY RF: 0 metformin 500 mg Tablet Extended Release 24hr 1,000 mg PO DAILY RF: 0 venlafaxine 75 mg capsule,extended release 24hr 75 mg PO DAILY RF: 0 venlafaxine 37.5 mg capsule,extended release 24hr 37.5 mg PO DAILY RF: 0 Latuda 40 mg tablet 40 mg PO DAILY RF: 0 Phosphorous 250 mg Tablet 1 tab PO DAILY RF: 0 magnesium oxide 400 mg magnesium Tablet 400 mg PO DAILY RF: 0 acetaminophen [Tylenol] 325 mg Tablet 650 mg PO TID PRN (Reason: Pain) RF: 0 Discharge Orders: Discharge Order (Routine); Ordered 12/06/19 Ordered By: Dylon Vines Admission Data Admit Date/Time: 06/03/20 21:38 Attending Provider: Dylon Vines Admit Provider: Gio Zapata Primary Care Provider: Manuel Narvaez Other Providers: Gio Zapata Other Interventions: Discharge Summary Assessment (RN) Last Done: 12/06/19 15:49 DC Date/Time DO NOT enter until pt leaves facility: 12/06/19 16:30
== END 2019-12-06 16:30 | disposition home or self-care (01) ==
LOC: ED 19:06 → INTOOBSV 21:38 → 2N 21:38

== ENCOUNTER 2024-10-24 14:54 | Inpatient (IN) ==
[2024-10-24 15:43] LABS: iSTAT Ionized Calcium 1.13 mmol/l (1.12-1.32); iSTAT Potassium 3.6 mmol/L (3.3-5.0)
[2024-10-24] MEDS: ONDANSETRON INJ 2 MG/ML 2 ML VIAL IV STA (15:44)
[2024-10-24] MEDS: SODIUM CHLORIDE 0.9% 1,000 ML IV ONE (15:44)
--- NOTE | 2024-10-24 15:50 | Emergency Department Note ---
Impression & Plan DKA (diabetic ketoacidosis), Acute dehydration ED Provider Note NAME: RUTH CAMP AGE: 64 SEX: M : 1960 ARRIVES VIA: Walk-In INFORMANT: Patient ED PROVIDER(S): Ksihan Merritt DO CHIEF COMPLAINT: Abdominal pain, nausea and vomiting HPI: Patient is a 64-year-old male with a past medical history of diabetes, bipolar disorder, hypertension who presents to the ER for nausea and vomiting which has been going on for the past week. He notes he feels very depressed and anxious. He called the [facility] and was accepted. They referred him in here for medical clearance. He denies any headache or change in vision. No chest pain or shortness of breath. He notes his belly feels upset throughout. Denies any dysuria, urgency, or frequency. No other exacerbating or remitting factors. ADDITIONAL HISTORY OBTAINED: Per HPI Chronic Medical/Social Conditions Affecting Care: Per HPI PAST MEDICAL HISTORY:See Below PAST SURGICAL HISTORY:See Below FAMILY HISTORY:See Below SOCIAL HISTORY:See Below HOME MEDICATIONS:See Below ALLERGIES:See Below VITALS:See Below PHYSICAL EXAMINATION: GENERAL: Sitting up in bed, alert, well appearing, well nourished, no distress, non-toxic EYE EXAM: normal conjunctiva. PERRL and EOM's grossly intact. OROPHARYNX: Dry mucous membranes NECK: supple, no nuchal rigidity, no adenopathy, non-tender LUNGS: Clear to auscultation. Normal chest wall mechanics HEART: no murmurs, S1 normal and S2 normal ABDOMEN: abdomen soft, non-tender, normo-active bowel sounds, no masses, no rebound or guarding. BACK: Back is symmetrical on inspection and there is no deformity, no midline tenderness, no CVA tenderness. SKIN: no rashes and no bruising UPPER EXTREMITIES: upper extremities are grossly normal. LOWER EXTREMITIES: No pitting edema. NEURO EXAM: Normal sensorium, cranial nerves II-XII grossly intact, normal speech, no gross weakness of arms, no gross weakness of legs. MEDICAL DECISION MAKING: Patient is a 64-year-old male with a past medical history of diabetes who presents to the ER for nausea vomiting for medical clearance for the hurley. IV was established and blood work was obtained. Labs show no significant leukocytosis or anemia. VBG with a pH of 7.35 and a bicarb of 11. BMP with a hyponatremia at 117 and a CO2 of 11 with a gap of 23 consistent with DKA with his sugars running around 580. LFTs and bilirubin were unremarkable. TSH and lipase were normal. UA with +3 ketones. Tox was negative. COVID-negative. Patient was given several liters of IV fluids. Patient was started on insulin drip. CT abdomen pelvis was pending upon admission. Discussed case with the hospitalist for further evaluation management treatment of his DKA. Again he has no suicidal or homicidal ideations. Potassium was at 3.7 and patient was ordered to 10 mg riders. Consults/Care Managements Discussions: Per [facility] Triage Nursing notes reviewed. Limited review of prior medical records performed Vital Signs: reviewed and remarkable for no significant abnormalities Differential diagnosis: Infection, dehydration, metabolic abnormality, hypo/hyperglycemia, electrolyte disturbance, anemia, hypoxia, cardiac sources, intracerebral event, toxicologic, neurologic, as well as other pathologies. ER treatment provided: See below Diagnostics interpreted by me include EKG and cardiac monitoring as listed below: -Cardiac Monitoring: An order was placed for continuous cardiac monitoring. The monitor shows a rate of 70 with sinus rhythm. -ECG: none -Laboratory studies:Interpreted by me as stated above in MDM and shown below. Imaging studies: Xrays: As interpreted by me:none CTs show: CT abdomen pelvis per my preliminary interpretation showed no obvious bowel obstruction Formal read is pending upon admission Procedures:none Critical Care: I have personally spent 45 minutes of critical care time in the direct management of this patient. This includes bedside care, interpretation of diagnostic studies, and testing, discussion with consultants, patient, and family members, and other required patient management activities. This 45 minutes is in excess of all separately billable procedures. Past Med/Surg History Problem List (Updated 10/24/24 @ 17:50 by JACQUIE Ennis) Hyponatremia DKA (diabetic ketoacidosis) Bipolar 2 disorder Lumbar degenerative disc disease Hyperlipidemia Diabetes type 2 HTN (hypertension) (Acute) Acute dehydration (Acute) Medical History (Updated 10/24/24 @ 17:50 by JACQUIE Ennis) CODY (acute kidney injury) Alcohol dependence Back pain Work related injury Hypertension Hand laceration Encounter for wound re-check Social History (Updated 10/24/24 @ 17:44 by JACQUIE Ennis) Smoking Status: Never smoker Tobacco Type: Smokeless Tobacco (Dip or Chew) Hx Alcohol Use: Yes Hx Substance Use: No Preferred Language: Bel[place]an Communication Ability: Effective [place] Required: No Beliefs That Will Affect Care: None Current Living Situation: Alone Feels Safe at Home: Yes Assistive Devices: None Allergies Allergies Allergy/AdvReac Type Severity Reaction Status Date / Time lamotrigine [From Lamictal] Allergy Intermediate Rash Verified 10/24/24 16:45 red (food color) Allergy Intermediate Rash Verified 10/24/24 16:45 Sulfa (Sulfonamide Allergy Intermediate Rash Verified 10/24/24 16:45 Antibiotics) blue dye Allergy Unknown ON Verified 10/24/24 16:45 [employer] LIST yellow dye Allergy Unknown ON Verified 10/24/24 16:45 HQ plus Home Meds Home Medications Medication Instructions Recorded Confirmed buspirone 10 mg tablet 10 mg PO BID 09/18/19 10/24/24 gabapentin 300 mg capsule 300 mg PO DAILY 09/18/19 10/24/24 (Neurontin) naltrexone 50 mg tablet 50 mg PO DAILY 09/18/19 10/24/24 acetaminophen 325 mg tablet 650 mg PO TID PRN Pain 12/04/19 10/24/24 (Tylenol) atorvastatin 20 mg tablet 20 mg PO DAILY 10/24/24 10/24/24 cariprazine 1.5 mg capsule 1.5 mg PO DAILY 10/24/24 10/24/24 (Vraylar) desvenlafaxine succinate 100 mg 100 mg PO DAILY 10/24/24 10/24/24 tablet,extended release 24 hr (Pristiq) hydroxyzine HCl 50 mg tablet 100 mg PO HS PRN Sleep 10/24/24 10/24/24 lisinopril 5 mg tablet 5 mg PO DAILY 10/24/24 10/24/24 metformin 500 mg tablet,extended 1,000 mg PO BID 10/24/24 10/24/24 release 24 hr Results & Data (ED) Vital Signs Vital Signs - 24 hr 10/24/24 14:58 10/24/24 15:57 10/24/24 16:03 Temperature 36.9 C Temperature Source Temporal Artery Scan Pulse Rate 121 H 83 Pulse Rate [Right Finger] 85 Pulse Rhythm [Right Finger] Regular Pulse Strength [Right Finger] Normal Respiratory Rate 19 18 Respiratory Effort / Characteristics Non-Labored Spontaneous Non-Labored Respiratory Depth Normal Normal Respiratory Pattern Regular Regular Blood Pressure 133/84 Blood Pressure [Right Arm] 129/81 Blood Pressure Mean 100 Blood Pressure Mean [Right Arm] 97 Blood Pressure Position [Right Arm] Lying Pulse Oximetry 97 90 Oxygen Delivery Method Room Air Room Air Sepsis Recent Fever Within 48 Hours No Sepsis New/Unexplained Change in Mental Status No Sepsis Action Taken by Nursing No Action Required 10/24/24 17:00 Temperature Temperature Source Pulse Rate Pulse Rate [Right Finger] 75 Pulse Rhythm [Right Finger] Regular Pulse Strength [Right Finger] Normal Respiratory Rate 20 Respiratory Effort / Characteristics Non-Labored Respiratory Depth Normal Respiratory Pattern Regular Blood Pressure Blood Pressure [Right Arm] 132/83 Blood Pressure Mean Blood Pressure Mean [Right Arm] 99 Blood Pressure Position [Right Arm] Lying Pulse Oximetry 95 Oxygen Delivery Method Room Air Sepsis Recent Fever Within 48 Hours Sepsis New/Unexplained Change in Mental Status Sepsis Action Taken by Nursing Laboratory Data 10/24/24 15:26 10/24/24 15:26 Lab Results 10/24/24 10/24/24 10/24/24 Range/Units 15:26 15:31 15:45 WBC 10.50 (4.8-10.8) K/ul RBC 5.08 (4.70-6.10) M/uL Hgb 14.7 (14.0-18.0) g/dl POC Hgb 15.0 (14.0-18.0) g/dl Hct 40.4 L (42.0-52.0) % POC Hct 44 (42-52) % MCV 79.5 L (80.0-100.0) fL MCH 28.9 (25.0-34.0) pg MCHC 36.4 H (32.0-36.0) g/dL RDW Std Deviation 35.6 L (36.4-46.3) fL RDW Coeff of Yenny 12.5 (11.5-14.5) % Plt Count 359 (130-400) K/uL MPV 11.2 (9.4-12.4) fL Immature Gran % (Auto) 3.0 % Neut % (Auto) 77.3 % Lymph % (Auto) 8.1 % [place] % (Auto) 10.5 % Eos % (Auto) 0.8 % Baso % (Auto) 0.3 % Neut # (Auto) 8.13 H (1.40-6.50) K/uL Lymph # (Auto) 0.85 L (1.20-3.40) K/uL [place] # (Auto) 1.10 H (0.11-0.59) K/uL Eos # (Auto) 0.08 (0.00-0.50) K/uL Baso # (Auto) 0.03 (0.00-0.20) K/uL Immature Gran # (Auto) 0.31 H (0.01-0.20) K/uL VBG pH 7.35 L (7.36-7.41) VBG pCO2 19 L (38-50) mmHg VBG pO2 78 mmHg VBG HCO3 11 mmol/L VBG O2 Saturation 96.6 % VBG Base Excess -12.7 mEq/L POC Sodium 116 L* (135-144) mmol/L Sodium 117 L* (136-145) mmol/L POC Potassium 3.6 (3.3-5.0) mmol/L Potassium 3.7 (3.5-5.1) mmol/L POC Chloride 88 L (101-112) mmol/L Chloride 83 L (98-107) mmol/L Carbon Dioxide 11 L (21-32) mmol/L POC Total CO2 11 L (24-31) mmol/L Anion Gap 23 H (3-11) POC Anion Gap 22.0 (16-25) mmol/L POC BUN 26 H (7-18) mg/dl BUN 28 H (6-23) mg/dl Creatinine 1.32 (0.6-1.4) mg/dl POC Creatinine 1.0 (0.6-1.3) mg/dl Est Cr Clr Drug Dosing 59.4 ml/min eGFR 59.86 BUN/Creatinine Ratio 21.2 H (10-20) Glucose 583 H* (70-99(Fasting)) mg/dl POC Glucose (70-99) mg/dl POC Glucose (other) 620 H* (70-99) mg/dl Calcium 9.0 (8.6-10.3) mg/dl POC Ioniz Calcium Wen 1.13 (1.12-1.32) mmol/l Phosphorus 3.4 (2.5-4.9) mg/dl Magnesium 2.0 (1.7-2.4) mg/dl Total Bilirubin 1.2 H (0.2-1.0) mg/dl AST 9 L (13-39) U/L ALT 7 (7-52) U/L Alkaline Phosphatase 120 H (34-104) U/L Total Protein 6.9 (6.0-8.3) gm/dl Albumin 3.9 (3.4-5.0) gm/dl Globulin 3.0 (2.5-4.0) gm/dl Albumin/Globulin Ratio 1.3 (0.9-2) Lipase 44 (11-82) U/L TSH 2.478 (0.300-4.500) uIu/ml Urine Color Yellow Urine Appearance Clear (Clear) Urine pH 6.0 (4.5-7.5) Ur Specific [place] 1.029 (1.000-1.030) Urine Protein Negative (Negative) Urine Glucose (UA) 3+ H (Negative) Urine Ketones 3+ H (Negative) Urine Blood Negative (Negative) Urine Nitrite Negative (Negative) Urine Bilirubin Negative (Negative) Urine Urobilinogen Negative (Negative) Ur Leukocyte Esterase Negative (Negative) Salicylates < 3.0 L (3.0-30) mg/dl Urine Opiates Screen Neg (Neg) Ur Methadone, Qual Neg (Neg) Urine Fentanyl Screen Neg (Neg) Acetaminophen < 3 L (10-30) ug/ml Urine Barbiturates Neg (Neg) Ur Phencyclidine (PCP) Neg (Neg) U Amphetamin/Meth Scrn Neg (Neg) MDMA (Ecstasy) Screen Neg (Neg) U Benzodiazepines Scrn Neg (Neg) Ur Cocaine Metabolite Neg (Neg) U Marijuana (THC) Screen Neg (Neg) Ethyl Alcohol mg/dL < 10.0 (<10.0) mg/dl SARS-CoV-2, RNA, NAAT NEGATIVE (NEGATIVE) 10/24/24 Range/Units 16:34 WBC (4.8-10.8) K/ul RBC (4.70-6.10) M/uL Hgb (14.0-18.0) g/dl POC Hgb (14.0-18.0) g/dl Hct (42.0-52.0) % POC Hct (42-52) % MCV (80.0-100.0) fL MCH (25.0-34.0) pg MCHC (32.0-36.0) g/dL RDW Std Deviation (36.4-46.3) fL RDW Coeff of Yenny (11.5-14.5) % Plt Count (130-400) K/uL MPV (9.4-12.4) fL Immature Gran % (Auto) % Neut % (Auto) % Lymph % (Auto) % [place] % (Auto) % Eos % (Auto) % Baso % (Auto) % Neut # (Auto) (1.40-6.50) K/uL Lymph # (Auto) (1.20-3.40) K/uL [place] # (Auto) (0.11-0.59) K/uL Eos # (Auto) (0.00-0.50) K/uL Baso # (Auto) (0.00-0.20) K/uL Immature Gran # (Auto) (0.01-0.20) K/uL VBG pH (7.36-7.41) VBG pCO2 (38-50) mmHg VBG pO2 mmHg VBG HCO3 mmol/L VBG O2 Saturation % VBG Base Excess mEq/L POC Sodium (135-144) mmol/L Sodium (136-145) mmol/L POC Potassium (3.3-5.0) mmol/L Potassium (3.5-5.1) mmol/L POC Chloride (101-112) mmol/L Chloride (98-107) mmol/L Carbon Dioxide (21-32) mmol/L POC Total CO2 (24-31) mmol/L Anion Gap (3-11) POC Anion Gap (16-25) mmol/L POC BUN (7-18) mg/dl BUN (6-23) mg/dl Creatinine (0.6-1.4) mg/dl POC Creatinine (0.6-1.3) mg/dl Est Cr Clr Drug Dosing ml/min eGFR BUN/Creatinine Ratio (10-20) Glucose (70-99(Fasting)) mg/dl POC Glucose 449 H* (70-99) mg/dl POC Glucose (other) (70-99) mg/dl Calcium (8.6-10.3) mg/dl POC Ioniz Calcium Wen (1.12-1.32) mmol/l Phosphorus (2.5-4.9) mg/dl Magnesium (1.7-2.4) mg/dl Total Bilirubin (0.2-1.0) mg/dl AST (13-39) U/L ALT (7-52) U/L Alkaline Phosphatase (34-104) U/L Total Protein (6.0-8.3) gm/dl Albumin (3.4-5.0) gm/dl Globulin (2.5-4.0) gm/dl Albumin/Globulin Ratio (0.9-2) Lipase (11-82) U/L TSH (0.300-4.500) uIu/ml Urine Color Urine Appearance (Clear) Urine pH (4.5-7.5) Ur Specific [place] (1.000-1.030) Urine Protein (Negative) Urine Glucose (UA) (Negative) Urine Ketones (Negative) Urine Blood (Negative) Urine Nitrite (Negative) Urine Bilirubin (Negative) Urine Urobilinogen (Negative) Ur Leukocyte Esterase (Negative) Salicylates (3.0-30) mg/dl Urine Opiates Screen (Neg) Ur Methadone, Qual (Neg) Urine Fentanyl Screen (Neg) Acetaminophen (10-30) ug/ml Urine Barbiturates (Neg) Ur Phencyclidine (PCP) (Neg) U Amphetamin/Meth Scrn (Neg) MDMA (Ecstasy) Screen (Neg) U Benzodiazepines Scrn (Neg) Ur Cocaine Metabolite (Neg) U Marijuana (THC) Screen (Neg) Ethyl Alcohol mg/dL (<10.0) mg/dl SARS-CoV-2, RNA, NAAT (NEGATIVE) Administered Medications Potassium Chloride (K Fred / Wtr) 10 meq in 100 mls @ 100 mls/hr IV Q1H [facility] Stop: 10/24/24 18:14 Last Infusion: 10/24/24 17:47 Dose: Infused Documented By: Admin: 10/24/24 16:47 Dose: 100 mls/hr Documented By: ASHLEY Insulin Human Regular 250 (units/ Sodium Chloride) 250 mls @ 8.5 mls/hr IV .Q24H [facility]; Protocol Stop: 11/23/24 16:44 Last Admin: 10/24/24 17:08 Dose: 8.5 units/hr, 8.5 mls/hr Documented By: ASHLEY Co-signed By: SUSAN Discontinued Medications Sodium Chloride (Nss) 1,000 mls @ 999 mls/hr IV .Q1H1M ONE Stop: 10/24/24 16:17 Last Infusion: 10/24/24 17:03 Dose: Infused Documented By: Admin: 10/24/24 15:44 Dose: 999 mls/hr Documented By: SUSAN Parenteral Electrolytes (Plasma-Lyte A Ph 7.4) 1,000 mls @ 999 mls/hr IV .Q1H1M ONE Stop: 10/24/24 17:12 Last Admin: 10/24/24 16:47 Dose: 999 mls/hr Documented By: ASHLEY Ioversol (Optiray 320 100ml) 93 ml IV ONCE ONE Stop: 10/24/24 16:28 Last Admin: 10/24/24 16:27 Dose: 93 ml Documented By: FER Kiran (Dka Goal Range 150-250 Mg/Dl) 1 each N/A ONE ONE Stop: 10/24/24 16:13 Last Admin: 10/24/24 17:13 Dose: 1 each Documented By: ASHLEY Kiran (Stat Iv Infusion Titration Per Protocol) 1 each N/A NOW STA Stop: 10/24/24 16:46 Last Admin: 10/24/24 17:13 Dose: 1 each Documented By: ASHLEY Ondansetron HCl (Ondansetron Inj 2 Mg/Ml 2 Ml Vial) 4 mg IV NOW STA Stop: 10/24/24 15:18 Last Admin: 10/24/24 15:44 Dose: 4 mg Documented By: SUSAN Discharge Plan Visit Data Chief Complaint: Mental Health Evaluation Stated Complaint: MENTAL HEALTH EVAL ED Provider: Kishan Merritt Discharge Problem: DKA (diabetic ketoacidosis), Acute dehydration Forms Stand Alone Forms: My [facility], Suicide Prevention Resources Prescriptions Prescriptions: No Action naltrexone 50 mg tablet 50 mg PO DAILY Rx Instructions: PER PT "CAN'T AFFORD MEDS, BEEN AT LEAST A MONTH SINCE LAST TAKEN" buspirone 10 mg tablet 10 mg PO BID Rx Instructions: PER PT "CAN'T AFFORD MEDS, BEEN AT LEAST A MONTH SINCE LAST TAKEN" gabapentin [Neurontin] 300 mg capsule 300 mg PO DAILY Rx Instructions: PER PT "CAN'T AFFORD MEDS, BEEN AT LEAST A MONTH SINCE LAST TAKEN" acetaminophen [Tylenol] 325 mg Tablet 650 mg PO TID PRN (Reason: Pain) atorvastatin 20 mg tablet 20 mg PO DAILY Rx Instructions: PER PT "CAN'T AFFORD MEDS, BEEN AT LEAST A MONTH SINCE LAST TAKEN" hydroxyzine HCl 50 mg tablet 100 mg PO HS PRN (Reason: Sleep) Rx Instructions: PER PT "CAN'T AFFORD MEDS, BEEN AT LEAST A MONTH SINCE LAST TAKEN" lisinopril 5 mg tablet 5 mg PO DAILY Rx Instructions: PER PT "CAN'T AFFORD MEDS, BEEN AT LEAST A MONTH SINCE LAST TAKEN" metformin 500 mg tablet extended release 24 hr 1,000 mg PO BID Rx Instructions: PER PT "CAN'T AFFORD MEDS, BEEN AT LEAST A MONTH SINCE LAST TAKEN" desvenlafaxine succinate [Pristiq] 100 mg Tablet Extended Release 24 Hr 100 mg PO DAILY Rx Instructions: PER PT "CAN'T AFFORD MEDS, BEEN AT LEAST A MONTH SINCE LAST TAKEN" Vraylar 1.5 mg Capsule 1.5 mg PO DAILY Rx Instructions: PER PT "CAN'T AFFORD MEDS, BEEN AT LEAST A MONTH SINCE LAST TAKEN" Referrals Referrals: Manuel Narvaez DO [Primary Care Provider] - Discharge Problem: DKA (diabetic ketoacidosis) Qualifiers: Diabetes mellitus type: other specified (including LEONARDO) Diabetes mellitus complication detail: without coma Qualified Code(s): E13.10 - Other specified diabetes mellitus with ketoacidosis without coma
[2024-10-24 15:59] LABS: Base Excess VBG -12.7 mEq/L; HCO3 VBG 11 mmol/L; Oxygen Saturation VBG 96.6 %; PCO2 VBG 19 mmHg (38-50); PO2 VBG 78 mmHg; pH VBG 7.35 (7.36-7.41)
[2024-10-24 16:04] LABS: Hematocrit (blood only) 40.4 % (42.0-52.0); Hemoglobin 14.7 g/dl (14.0-18.0); Mean Corpuscular Hemoglobin 28.9 pg (25.0-34.0); Mean Corpuscular Hgb Conc 36.4 g/dL (32.0-36.0); Mean Corpuscular Volume 79.5 fL (80.0-100.0); Mean Platelet Volume 11.2 fL (9.4-12.4); Platelet Count 359 K/uL (130-400); RDW Coefficient of Variation 12.5 % (11.5-14.5); RDW Standard Deviation 35.6 fL (36.4-46.3); Red Blood Count 5.08 M/uL (4.70-6.10)
[2024-10-24 16:07] LABS: Basophils # (auto) 0.03 K/uL (0.00-0.20); Basophils % (auto) 0.3 %; Eosinophils # (auto) 0.08 K/uL (0.00-0.50); Eosinophils % (auto) 0.8 %; Immature Granulocytes # (auto) 0.31 K/uL (0.01-0.20); Lymphocytes # (auto) 0.85 K/uL (1.20-3.40); Lymphocytes % (auto) 8.1 %; Monocytes % (auto) 10.5 %; Neutrophils # (auto) 8.13 K/uL (1.40-6.50); Neutrophils % (auto) 77.3 %
[2024-10-24] MEDS ORDERED: DEXTROSE 50% 50 ML SYRINGE IV PRN (16:12)
[2024-10-24] MEDS ORDERED: CARBOHYDRATES FOR HYPOGLYCEMIA PO PRN (16:12)
[2024-10-24] MEDS ORDERED: GLUCOSE 40% GEL 15 GM TUBE PO PRN (16:12)
[2024-10-24] MEDS ORDERED: GLUCAGON FOR INJ 1 MG VIAL SQ PRN (16:12)
[2024-10-24] MEDS ORDERED: GLUCOSE 10 TAB/TUBE PO PRN (16:12)
[2024-10-24 16:17] LABS: Acetaminophen < 3 ug/ml (10-30); Albumin Globulin Ratio 1.3 (0.9-2); Albumin Level 3.9 gm/dl (3.4-5.0); Amphetamines+Metham, Urine Neg (Neg); BUN Creatinine Ratio 21.2 (10-20); Barbiturates, Urine Neg (Neg); Benzodiazepine, Urine Neg (Neg); Bilirubin,Total 1.2 mg/dl (0.2-1.0); Cocaine, Urine Neg (Neg); Creatinine Clr Calc Pharmacy 59.4 ml/min; Fentanyl, Urine Neg (Neg); MDMA (Ecstacy), Urine Neg (Neg); Marijuana, Urine Neg (Neg); Methadone, Urine Neg (Neg); Opiate, Urine Neg (Neg); Phencyclidine, Urine Neg (Neg); Potassium 3.7 mmol/L (3.5-5.1); Salicylate < 3.0 mg/dl (3.0-30); Thyroid Stimulating Hormone 2.478 uIu/ml (0.300-4.500); Total Protein 6.9 gm/dl (6.0-8.3)
[2024-10-24] MEDS: OPTIRAY 320 100ml IV ONE (16:27)
[2024-10-24 16:37] LABS: Phosphorus 3.4 mg/dl (2.5-4.9)
--- NOTE | 2024-10-24 16:46 | History & Physical Report ---
Date of Service October 24, 2024 Assessment & Plan (1) DKA (diabetic ketoacidosis): (2) Hyponatremia: (3) Acute dehydration: (4) Diabetes type 2: (5) HTN (hypertension): (6) Hyperlipidemia: (7) Bipolar 2 disorder: Plan 64 year old male with PMH significant for DMII, HTN, dyslipidemia, lumbar degenerative disc disease, bipolar 2, and history of alcohol dependence who presented to the ED with depression and anxiety and x10 days of N/V and was found to be in DKA. DKA Blood glucose 583 Compensated metabolic acidosis with pH 7.35 and bicarb 11 ABG ordered Received 1L NSS and 1L plasmalyte in ED MIVF 1/2NS at 125mL/hr Order DKA protocol with q1hr blood sugar, q4hr VBG/BMP/mag/phos Hyponatremia Sodium 117 due to DKA 1/2NS maintenance fluids Monitor sodium q4hr via BMP Acute dehydration Due to vomiting and DKA Rehydration per DKA protocol CT abdomen pelvis pending DMII On metformin at home - holding while inpt On gabapentin at home - resume per home dosing A1C pending HTN On lisinopril at home - resume per home dosing Normotensive Monitor BPs HLD On atorvastatin at home - resume per home dosing Bipolar 2 On buspirone, cariprazine, desvenlafaxine - resume per home dosing Patient with increasing depression and anxiety likely due to no meds in the last 30 days Psych consult placed for request to go to [facility] outpatient History of alcohol dependence Sober x8-9 years per patient On naltrexone at home - resume per home dosing DVT Prophylaxis: SQ lovenox Code Status: FULL CODE - As per discussion at bedside with the patient. PCP: Manuel Narvaez Disposition: admit to PCU Patient seen in collaboration with Dr Villasenor. Please see addendum. I spent a total of 75 minutes coordinating, documenting and providing care for this patient excluding time spent in the performance of separately billed services or time spent by another provider/QHP. Admission and Anticipated Discharge Date Admission Date: 10/24/2024 History of Present Illness Chief Complaint: N/V Primary Care Provider: Manuel Narvaez, DO 64 year old male with PMH significant for DMII, HTN, dyslipidemia, lumbar degenerative disc disease, bipolar 2, and history of alcohol dependence who presented to the ED with depression and anxiety and x10 days of N/V. Patient reports that he has not taken any of his prescription medications in the last month because he ran out and cannot afford refills. He is having increasing depression and anxiety and would like to go to the [facility]. Denies suicidal ideation. He also reports x10 days of nausea and vomiting where he vomited x7days with last episode 3 days ago. He has poor PO intake because he cannot keep anything down. He has generalized abdominal pain but denies fevers, chills, cough, cold symptoms, diarrhea, hematemesis. Denies recent sick contacts. He does not check his blood sugar at home. Allergies Allergy/AdvReac Type Severity Reaction Status Date / Time lamotrigine [From Lamictal] Allergy Intermediate Rash Verified 10/24/24 16:45 red (food color) Allergy Intermediate Rash Verified 10/24/24 16:45 Sulfa (Sulfonamide Allergy Intermediate Rash Verified 10/24/24 16:45 Antibiotics) blue dye Allergy Unknown ON Verified 10/24/24 16:45 [employer] LIST yellow dye Allergy Unknown ON Verified 10/24/24 16:45 [employer] Home Medications Medication Instructions Recorded Confirmed Type buspirone 10 mg tablet 10 mg PO BID 09/18/19 10/24/24 History gabapentin 300 mg capsule 300 mg PO DAILY 09/18/19 10/24/24 History (Neurontin) naltrexone 50 mg tablet 50 mg PO DAILY 09/18/19 10/24/24 History acetaminophen 325 mg tablet 650 mg PO TID PRN Pain 12/04/19 10/24/24 History (Tylenol) atorvastatin 20 mg tablet 20 mg PO DAILY 10/24/24 10/24/24 History cariprazine 1.5 mg capsule 1.5 mg PO DAILY 10/24/24 10/24/24 History (Vraylar) desvenlafaxine succinate 100 mg 100 mg PO DAILY 10/24/24 10/24/24 History tablet,extended release 24 hr (Pristiq) hydroxyzine HCl 50 mg tablet 100 mg PO HS PRN Sleep 10/24/24 10/24/24 History lisinopril 5 mg tablet 5 mg PO DAILY 10/24/24 10/24/24 History metformin 500 mg tablet,extended 1,000 mg PO BID 10/24/24 10/24/24 History release 24 hr Past Med/Surg History Problem List (Updated 10/24/24 @ 17:50 by JACQUIE Ennis) Hyponatremia DKA (diabetic ketoacidosis) Bipolar 2 disorder Lumbar degenerative disc disease Hyperlipidemia Diabetes type 2 HTN (hypertension) (Acute) Acute dehydration (Acute) Medical History (Updated 10/24/24 @ 17:50 by JACQUIE Ennis) CODY (acute kidney injury) Alcohol dependence Back pain Work related injury Hypertension Hand laceration Encounter for wound re-check Social History (Updated 10/24/24 @ 17:44 by JCAQUIE Ennis) Smoking Status: Never smoker Tobacco Type: Smokeless Tobacco (Dip or Chew) Hx Alcohol Use: Yes Hx Substance Use: No Preferred Language: Hebrew Communication Ability: Effective Bail Bonding Agent Required: No Beliefs That Will Affect Care: None Current Living Situation: Alone Feels Safe at Home: Yes Assistive Devices: None Review of Systems Review of Systems: All systems reviewed & are unremarkable except as noted in HPI & below Physical Exam Physical Exam: General/Psych: unkempt, sitting up in bed, NAD, conversing easily, flat affect Head: normocephalic, atraumatic Eyes: normal inspection, PERRL, conjunctivae pink, anicteric sclerae ENT: external ear and nose normal, oropharynx normal Neck: normal visual inspection, trachea midline, no thyromegaly Respiratory: normal respiratory effort, lungs clear to auscultation, no wheeze/rales/rhonchi, no accessory muscle use Cardiovascular: regular rate and rhythm, no murmur/rub/gallop, no JVD Extremities: no cyanosis or clubbing, normal peripheral pulses, no BLE edema Abdomen/GI: normal bowel sounds, soft, nontender, no hepatosplenomegaly Neurologic/MSK: A+Ox3, motor strength 5/5, moves all extremities Skin: no rashes, normal color, warm and dry Results & Data Results & Data Vital Signs (Past 12 Hours) Vital Signs Temp Pulse Pulse Resp BP BP Pulse Ox 10/24/24 16:03 83 10/24/24 15:57 85 18 129/81 90 10/24/24 14:58 36.9 C 121 H 19 133/84 97 O2 Del Method 10/24/24 16:03 10/24/24 15:57 Room Air 10/24/24 14:58 Room Air Laboratory Results Short CBC 10/24/24 Range/Units 15:26 WBC 10.50 (4.8-10.8) K/ul Hgb 14.7 (14.0-18.0) g/dl Hct 40.4 L (42.0-52.0) % Plt Count 359 (130-400) K/uL BMP 10/24/24 15:26 Sodium 117 L* Potassium 3.7 Chloride 83 L Carbon Dioxide 11 L BUN 28 H Creatinine 1.32 Glucose 583 H* Calcium 9.0 Liver Function 10/24/24 Range/Units 15:26 Total Bilirubin 1.2 H (0.2-1.0) mg/dl AST 9 L (13-39) U/L ALT 7 (7-52) U/L Alkaline Phosphatase 120 H (34-104) U/L Albumin 3.9 (3.4-5.0) gm/dl I have independently reviewed and interpreted patient's admitting labs including CBC, CMP, mag, phos, VBG, ical, lipase, TSH, UA, tox screen. Code Status & VTE Plan Code Status Full Code Supervising Physician Co-Signing Physician Notes Attending addendum The patient was seen and examined in emergency room He has significant psychiatric disorder and also type 2 diabetes on metformin Has been very depressed with anxiety and not been taking his medications for about a month Complaining nausea vomiting and has not been eating anything for the last 1 week except water Denies any significant abdominal pain, any chest pain palpitation or shortness of breath, no problem with urine or bowel habit On examination Lying in bed without any apparent distress Remains hemodynamically stable and is afebrile Chest clear to auscultate bilaterally HeartS1-S2 regular Abdomensoft mildly distended with normal bowel sound Extremitiesno edema CNSalert, awake and oriented x 3. Anxious no focal neurodeficit He is admission labs, imaging studies reviewed Noted to have a blood sugar of 600 without significant acidosis and a sodium of 116 which is spurious hyponatremia Has type 2 diabetes with hyperglycemia- will need IV fluid and intravenous insulin,pharmacy has been consulted History of significant depression and anxiety and was in middle was before Will get psychiatric evaluation and may need placement to [facility] again Agree with assessment and plan as outlined above by Maria Esther DHILLON and take the full responsible care in the hospital Total time taken to document all this was [address] Marlon Villasenor (5) HTN (hypertension) Hypertension type: unspecified Qualified Code(s): I10 - Essential (primary) hypertension
[2024-10-24] MEDS: POTASSIUM CHLORIDE / WTR 10 MEQ/100 ML PLCT IV SCH (16:47)
[2024-10-24] MEDS: PLASMA-LYTE A 1,000 ML IV ONE (16:47)
[2024-10-24] MEDS: INSULIN REGULAR 250 UNITS in SODIUM CHLORIDE 0.9% 247.5 ML IV SCH (17:08)
[2024-10-24] MEDS: STAT IV Infusion **Titration per Protocol STA (17:13)
[2024-10-24] MEDS: DKA GOAL RANGE 150-250 mg/dl ONE (17:13)
[2024-10-24 17:15] LABS: Appearance Urine Clear (Clear); Bilirubin Urine Negative (Negative); Blood Urine Negative (Negative); Color Urine Yellow; Glucose Urine UA 3+ (Negative); Ketones Urine 3+ (Negative); Leukocyte Esterase Urine Negative (Negative); Nitrite Urine Negative (Negative); Protein Urine Negative (Negative); Specific Gravity Urine 1.029 (1.000-1.030); Urobilinogen Urine Negative (Negative)
[2024-10-24] MEDS: SODIUM CHLORIDE 0.45 % 1,000 ML IV SCH (17:58)
--- NOTE | 2024-10-24 18:07 | CT Scan Report ---
EXAM: CT abd pelvis IV con only CLINICAL HISTORY: mid abd pain n/v TECHNIQUE: Non-contrast CT of the abdomen and pelvis was performed, with the following protocol: axial images, and reconstructed coronal and sagittal images. One of the following dose reduction techniques was utilized for this exam: Automated exposure control, adjustment of the mA and/or kV according to patient size, and use of iterative reconstruction. COMPARISON: No prior studies available for comparison. FINDINGS: Abdomen: Liver: Normal in size, shape, and density. No focal lesions, cysts, or masses were identified. Gallbladder and Biliary System: The gallbladder is normal in size and shape. No wall thickening, pericholecystic fluid, or gallstones were identified. Pancreas: Minimal subtle pancreatic head hypodensity with subtle related fatty stranding and related subcentimetirc peripancreatic reactionary looking lymph nodes. The rest of Pancreatic body, and tail are visualized and appear normal in size and density. No pancreatic masses or calcifications were noted. Spleen: Normal in size, shape, and density. No splenic lesions or masses were identified. Appendix: The appendix is normal in size without thaddeus appendiceal fat stranding, and without an appendicolith. No evidence of appendiceal abscess or perforation. Kidneys and Adrenal Glands: Both kidneys are normal in size, shape, and position. Cortical thickness is within normal limits. No renal calculi or hydronephrosis. Adrenal glands are unremarkable. Right lower polar simple renal cyst measuring about 36x30 mm. Abdominal Aorta and Vessels: The abdominal aorta and major branches are patent without evidence of an aneurysmwith multiple scattered calcifications. Pelvis: Urinary Bladder: Normal in contour and wall thickness. No intraluminal lesions. Prostate: Normal in size and contour. No masses or abnormal thickening. Seminal Vesicles: Normal appearance without abnormal enlargement or mass. Peritoneal and Retroperitoneal Structures: No free fluid or abnormal fluid collections were identified within the abdomen or pelvis. No lymphadenopathy was noted. Bowel: A air filled structure is seen posterior to the 2nd part of duodenum communicating with its lumen most likely representing a diverticulum. The visualized bowel loops are normal in caliber and appearance. No evidence of bowel obstruction or wall thickening. Bones and Soft Tissues: Grade I lytic spondylolithesis of L5 over s1 secondary to bilateral pars interarticularis breaks with bilateral severe foraminal stenosis. Diffuse spondylotic changes of scanned spine. IMPRESSION: 1. A subtle pancreatic head hypodenisty could represnt edematous changes associated with subtle related fatty stranding as well as subcentimetric reactionary perpancreatic lymph nodes could raise the possibility of early inflammtory process , however for clinical and lab correlation as well as follow up as appropriate with CT/MR if clinically warranted. Duodenal diverticulum posterior to 2nd part of duodenum. 2. Right simple renal cyst (BOSNIAK 1). 3. 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 4. Recommend clinical correlation. Electronically signed by Berry Chun 10-24-2024 6:07 PM
[2024-10-24 18:29] LABS: Estimated Average Glucose 367 mg/dl; Hemoglobin A1C 14.4 % (4.5-5.6)
[2024-10-24] MEDS ORDERED: PENDING D5 1/2NS+20mEq KCL IVF SCH (20:16)
[2024-10-24] MEDS ORDERED: PHARMACY GLYCEMIC MGMT CONSULT PRN (20:16)
[2024-10-24] MEDS ORDERED: PENDING 1/2NSS+20mEq KCL IVF SCH (20:16)
[2024-10-24 21:33] LABS: BUN Creatinine Ratio 21.7 (10-20); Calcium 8.4 mg/dl (8.6-10.3); Phosphorus 2.3 mg/dl (2.5-4.9); Potassium 3.3 mmol/L (3.5-5.1)
[2024-10-24] MEDS ORDERED: ONDANSETRON INJ 2 MG/ML 2 ML VIAL IV PRN (21:45)
[2024-10-24] MEDS: ENOXAPARIN INJ 40 MG/0.4 ML SYR SQ SCH (22:11)
[2024-10-24] MEDS: D5W AND 1/2NSS + 20MEQ KCL 20 MEQ/1,000 ML BAG IV SCH (22:11)
[2024-10-24] MEDS: busPIRone 5 MG TAB PO SCH (22:22)
[2024-10-24] MEDS: INSULIN ASPART PER UNIT CHARGE SC SCH (22:42)
--- OUTSIDE RECORDS SUMMARY | 2024-10-24 23:37 | External Medical Summary ---
Author Name Unknown Address Unknown Organization [id number]:LABORATORY [facility] [place] - [address] [facility] [address] Laboratory Report Ordering Provider Test Date Status DALEALEK 06/07/2024 13:25:00 Final Observation Date Value Abnormality Reference (Units ) Status HbA1C 06/07/2024 13:25:00 8.9 Above high normal 4. 0-5.6 (%) Final The use of HbA1c to monitor glycemic status is based on normal hemoglobin and HbA composition. This test should not be used in patients with abnormal hemoglobin that affects the half life of the red blood cell or the in vivo glycation rates. Glucose, estimated average 06/07/2024 13:25:00 209 Above high normal <126 (mg/dL) Horacio mcginnis Performing Location LABORATORY [facility] [place] [address] [facility] [address]
--- OUTSIDE RECORDS SUMMARY | 2024-10-24 23:37 | External Medical Summary ---
Author Name Unknown Address Unknown Organization [id number]:[place] [place] [address] [place] [address] Laboratory Report Ordering Provider Test Date Status ALEK HUNTER 06/07/2024 13:25:00 Final Observation Date Value Abnormality Reference (Units ) Status SYNC LEUKOCYTES IN BLOOD BY AUTOMATED COUNT 06/07/2024 13:25:00 7.21 4.00-10.80 (K/uL) Final Neutrophils/100 leukocytes in Blood by Manual count 06/07/2024 13:25:00 38.0 Below low normal 40.0-75.0 (%) Final Lymphocytes/100 leukocytes in Blood by Manual count 06/07/2024 13:25:00 46.0 Above high normal 18.0-42.0 (%) Final Monocytes/100 leukocytes in Blood by Manual count 06/07/2024 13:25:00 13.0 Above high normal 1.0-11.0 (%) Final Eosinophils/100 leukocytes in Blood by Manual count 06/07/2024 13:25:00 2.0 0.0-6.0 (%) Final Basophils/100 leukocytes in Blood by Manual count 06/07/2024 13:25:00 1.0 0.0-2.0 (%) Final Neutrophils [#/volume] in Blood by Manual count 06/07/2024 13:25:00 2.74 1.80-7.70 (K/uL) Final Lymphocytes [#/volume] in Blood by Manual count 06/07/2024 13:25:00 3.32 1.00-4.80 (K/uL) Final Monocytes [#/volume] in Blood by Manual count 06/07/2024 13:25:00 0.94 0.00-1.10 (K/uL) Final Eosinophils [#/volume] in Blood by Manual count 06/07/2024 13:25:00 0.14 0.00-0.70 (K/uL) Final Basophils [#/volume] in Blood by Manual count 06/07/2024 13:25:00 0.07 0.00-0.20 (K/uL) Final Variant lymphocytes [Presence] in Blood by Light microscopy 06/07/2024 13:25:00 Present Abnormal None Seen Final Performing Location [facility]ORY [facility] [place] - [address] [facility] [address]
--- OUTSIDE RECORDS SUMMARY | 2024-10-24 23:37 | External Medical Summary ---
Author Name Unknown Address Unknown Organization [id number]:[place] [place] [address] [place] [address] Laboratory Report Ordering Provider Test Date Status ALEK HUNTER 06/07/2024 13:25:00 Final Observation Date Value Abnormality Reference (Units ) Status BUN 06/07/2024 13:25:00 10 6-20 (mg/dL) Final Creatinine 06/07/2024 13:25:00 0.8 0.6-1.2 (mg/dL) Final Glomerular filtration rate/1.73 sq M.predicted [Volume Rate/Area] in Serum, Plasma or Blood by Creatinine-based formula (CKD-EPI) 06/07/2024 13:25:00 >90 >=60 (mL/min) Final eGFR is calculated based on the CKD-EPI 2020 equation. Sodium 06/07/2024 13:25:00 140 135-146 (m mol/L) Final Potassium 06/07/2024 13:25:00 4.3 3.5-5.1 (m mol/L) Final Cl 06/07/2024 13:25:00 104 98-107 (mm ol/L) Final CO2 06/07/2024 13:25:00 22 22-32 (mmo l/L) Final Anion gap 06/07/2024 13:25:00 14 7-15 (mmol /L) Final Glucose 06/07/2024 13:25:00 160 Above high normal 70 -120 (mg/dL) Final Albumin 06/07/2024 13:25:00 4.4 3.8-5.0 (g /dL) Final AST (Aspartate aminotransferase) 06/07/2024 13:25:00 19 10-50 (U/L) Fin al Alk Phos 06/07/2024 13:25:00 118 35-130 (U/ L) Final Bilirubin, Total 06/07/2024 13:25:00 0.5 <=1 .2 (mg/dL) Final Calcium 06/07/2024 13:25:00 9.8 8.4-10.2 ( mg/dL) Final Protein 06/07/2024 13:25:00 6.8 6.0-8.3 (g /dL) Final ALT (Alanine aminotransferase) 06/07/2024 13:25:00 31 10-50 (U/L) Horacio mcginnis Performing Location [facility] [place] - [facility] [address] [facility] [address]
--- OUTSIDE RECORDS SUMMARY | 2024-10-24 23:37 | External Medical Summary ---
Author Name Unknown Address Unknown Organization [id number]:[place] [facility] [place] [facility] [address] [place] [address] Laboratory Report Ordering Provider Test Date Status ALEK HUNTER 06/07/2024 13:25:00 Final Observation Date Value Abnormality Reference (Units ) Status WBC, Total 06/07/2024 13:25:00 7.21 4.00-10.80 (K/uL) Final RBC 06/07/2024 13:25:00 4.89 4.50-5.25 (M/uL) Final Hemoglobin 06/07/2024 13:25:00 14.6 14.0-16.8 (g/dL) Final HCT 06/07/2024 13:25:00 43.1 40.0-48.4 (%) Final MCV 06/07/2024 13:25:00 88.1 82.0-99.5 (fL) Final MCH 06/07/2024 13:25:00 29.9 27.0-34.0 (pg) Final MCHC 06/07/2024 13:25:00 33.9 32.0-36.0 (g/dL) Final RDW 06/07/2024 13:25:00 12.6 11.5-15.5 (%) Final Platelets 06/07/2024 13:25:00 237 140-400 (K/uL) Final MPV 06/07/2024 13:25:00 12.5 6.6-11.1 (fL) Final Nucleated erythrocytes/100 leukocytes [Ratio] in Blood by Automated count 06/07/2024 13:25:00 0 <=0 (/100 WBCs) Final Performing Location [place] [facility] [place] [address] [place] [address]
--- OUTSIDE RECORDS SUMMARY | 2024-10-24 23:37 | External Medical Summary ---
Author Name Unknown Address Unknown Organization [id number][place] [facility] [place] [address] [place] [address] Laboratory Report Ordering Provider Test Date Status ALEK HUNTER 06/07/2024 13:25:00 Final Observation Date Value Abnormality Reference (Units ) Status TSH 06/07/2024 13:25:00 3.09 0.27-4.20 (uIU/mL) Final Performing Location [place] [facility] [place] [address] [facility] [address]
--- OUTSIDE RECORDS SUMMARY | 2024-10-24 23:37 | External Medical Summary ---
Author Name Unknown Address Unknown Organization [id number]:[place] [facility] [place] - [address] [facility] [place] [address] Laboratory Report Ordering Provider Test Date Status ALEK HUNTER 06/07/2024 13:25:00 Final Observation Date Value Abnormality Reference (Units ) Status Triglyceride 06/07/2024 13:25:00 120 <=174 ( mg/dL) Final Triglyceride Reference Range s (mg/dL):
<150 Acceptable
150-174 Borderline high
175-499 High
>=500 Very high Cholesterol 06/07/2024 13:25:00 164 <200 (mg /dL) Final Total Cholesterol Reference Ranges (mg/dL):
<200 Desirable
200-239 Borderline high
>=240 High HDL 06/07/2024 13:25:00 38 Below low normal >39 (mg/dL) Final HDL Cholesterol Reference Ra nges (mg/dL):
>=60 High (Desirable)
<50 Low (Undesirable) For Females
<40 Low (Undesirable) For Males NON-HDL CHOLESTEROL 06/07/2024 13:25:00 126 <=159 (mg/dL) Final Non-HDL Cholesterol Referenc e Range (mg/dL):
<100 Target level for high risk ASCVD patient
<130 Optimal for general population
130-159 Near optimal for general population
160-189 Borderline High
190-219 High
>=220 Very High LDL, (calculated) 06/07/2024 13:25:00 102 <= 129 (mg/dL) Final LDL Cholesterol Reference Ra nges (mg/dL):
<70 Target level for high risk ASCVD patient
<100 Optimal for general population
100-129 Near optimal for general population
130-159 Borderline high
160-189 High
>=190 Very high Performing Location LABORATORY [facility] [place] - [address] [place] [address]
[2024-10-25 01:18] LABS: BUN Creatinine Ratio 19.4 (10-20); Calcium 8.1 mg/dl (8.6-10.3); Creatinine Clr Calc Pharmacy 84.3 ml/min; Magnesium 1.9 mg/dl (1.7-2.4); Phosphorus 2.7 mg/dl (2.5-4.9); Potassium 3.1 mmol/L (3.5-5.1)
--- NOTE | 2024-10-25 01:43 | Communication Note ---
Date of Service: October 25, 2024 Please Hold Insulin drip until KCL > 3.5.
[2024-10-25] MEDS: POTASSIUM CHLORIDE CRTAB 20 MEQ TABCR PO STA ×2 (01:52→05:28)
[2024-10-25] MEDS: POTASSIUM CHLORIDE / WTR 10 MEQ/100 ML PLCT IV SCH (01:52)
[2024-10-25] MEDS: MAGNESIUM SULFATE / D5W 1 GM/100 ML BAG IV ONE (02:01)
[2024-10-25] MEDS: SODIUM CHLOR 0.45% + 20MEQ KCL 20 MEQ/1,000 ML BAG IV SCH ×2 (02:04→15:18)
[2024-10-25 05:03] LABS: BUN Creatinine Ratio 17.7 (10-20); Calcium 8.3 mg/dl (8.6-10.3); Creatinine Clr Calc Pharmacy 81.7 ml/min; Magnesium 2.1 mg/dl (1.7-2.4); Phosphorus 2.4 mg/dl (2.5-4.9); Potassium 3.7 mmol/L (3.5-5.1)
--- NOTE | 2024-10-25 09:04 | Cardiology Consultation ---
Date of Consultation October 25, 2024 Assessment & Plan (1) Sinus bradycardia: (2) Hyponatremia: (3) DKA (diabetic ketoacidosis): (4) Hypokalemia: (5) Prolonged Q-T interval on ECG: Plan Patient admitted for DKA with hyponatremia and hypokalemia. During the night, patient had one single sinus pause during sleep, lasting 3 seconds. No symptoms. No arrhythmias or symptomatic bradycardia while awake. He is not on AV nikki blocking agents. Consider nocturnal oximetry or testing for JOSEPH. He remained hyponatremic and hypokalemic at the time of event and potassium supplemented. Now improved. Magnesium level acceptable. Continue on telemetry today and tonight. Borderline prolonged QT interval on EKG on admission Long history of bipolar/depression Psych to see on admission would avoid significant QT prolonging agents. Repeat EKG this morning and with dose adjustments of therapies. Likely no further cardiac testing warranted at this time. Case discussed with Dr. Gannon I spent a total of 60 minutes on the date of service in preparation, delivery, and documentation of the care provided to this patient, excluding any time spent in the performance of separately billed services. Raina Boone PA-C Department of Cardiology, [facility] This chart was completed in part utilizing Speech Voice Recognition Software. Grammatical errors, random word insertions, pronoun errors, and incomplete sentences are an occasional consequence of this system due to software limitations, ambient noise, and hardware issues. Any formal questions or concerns about the content, text, or information contained within the body of this dictation should be directly addressed to the provider for clarification. Supervising Physician Co-Signing Physician Notes I have personally performed a history and physical examination on the patient. I have reviewed the advance practitioner's documentation, and I agree with, and take responsibility for the plan of care. 64-year-old male admitted with nausea, and vomiting in the setting of worsening depression. Admits to noncompliance with all medications for the last 4 weeks. Diagnosed with diabetic ketoacidosis. A 3.0-second sinus pause was recorded on telemetry overnight during sleep. There has been no recurrent bradycardia or pauses today. Patient is not treated with AV nikki blocking agents. Recommendations: * Nocturnal pulse oximeter trend to assess for possible nocturnal hypoxemia/obstructive sleep apnea. * Avoid medications with potential to prolong the QT interval. * Continue telemetry monitoring. * Avoid AV nikki blocking agents at this time. * No further testing recommended. Thank you for allow me to participate in the care of your patient. I spent a total of 30 minutes on the date of service in preparation, delivery, and documentation of the care provided to this patient, excluding any time spent in the performance of separately billed services. Alejandro Gannon DO, [facility] History of Present Illness Reason for Consultation: Possible Pause on telemetry Requesting Physician: Tanya Hospitalist Attending Physician: Dr. Gannon History of Present Illness Patient is a 64 year old male who presented to [facility] with complaints of nausea, vomiting for the last 10 days associated with worsening anxiety/depression. Diagnosed with DKA with hyperglycemia, hyponatremia. No significant acidosis. Started on IV insulin and IV fluids. Hypokalemia and potassium supplemented. electrolytes improving this morning. 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 No known cardiac history. He had an exercise stress echo in August 2017 which was negative for inducible ischemia with moderate LVH and grade I diastolic dysfunction. No significant valvular disease. Overnight there was report of a sinus pause, initially thought to be 6 seconds. However, per my further review and measurment, there was a 3 second pause during sleep at 1:29 AM. No symptoms. He also has intermittent PVC's but no symptoms He denies history of sleep apnea. Never been tested. Does not think he snores. At time of consult, patient resting in bed feeling "ok". Notes feeling tired and depressed. No chest pain, SOB, dizziness, palpitations. History includes: DM II HTN dyslipidemia lumbar degenerative disc disease bipolar with severe anxiety/depression prior alcohol abuse, now in remission on naltrexone Allergies Allergy/AdvReac Type Severity Reaction Status Date / Time lamotrigine [From Lamictal] Allergy Intermediate Rash Verified 10/24/24 16:45 red (food color) Allergy Intermediate Rash Verified 10/24/24 16:45 Sulfa (Sulfonamide Allergy Intermediate Rash Verified 10/24/24 16:45 Antibiotics) blue dye Allergy Unknown ON Verified 10/24/24 16:45 SummuS Render MED LIST yellow dye Allergy Unknown ON Verified 10/24/24 16:45 SummuS Render MED LIST Home Medications Medication Instructions Recorded Confirmed Type buspirone 10 mg tablet 10 mg PO BID 09/18/19 10/24/24 History gabapentin 300 mg capsule 300 mg PO DAILY 09/18/19 10/24/24 History (Neurontin) naltrexone 50 mg tablet 50 mg PO DAILY 09/18/19 10/24/24 History acetaminophen 325 mg tablet 650 mg PO TID PRN Pain 12/04/19 10/24/24 History (Tylenol) atorvastatin 20 mg tablet 20 mg PO DAILY 10/24/24 10/24/24 History cariprazine 1.5 mg capsule 1.5 mg PO DAILY 10/24/24 10/24/24 History (Vraylar) desvenlafaxine succinate 100 mg 100 mg PO DAILY 10/24/24 10/24/24 History tablet,extended release 24 hr (Pristiq) hydroxyzine HCl 50 mg tablet 100 mg PO HS PRN Sleep 10/24/24 10/24/24 History lisinopril 5 mg tablet 5 mg PO DAILY 10/24/24 10/24/24 History metformin 500 mg tablet,extended 1,000 mg PO BID 10/24/24 10/24/24 History release 24 hr Patient History Medical History (Updated 10/25/24 @ 12:23 by Raina Boone PA-C) CODY (acute kidney injury) Alcohol dependence Back pain Work related injury Hypertension Hand laceration Encounter for wound re-check Social History (Updated 10/24/24 @ 17:44 by JACQUIE Ennis) Smoking Status: Never smoker Tobacco Type: Smokeless Tobacco (Dip or Chew) Hx Alcohol Use: No Hx Substance Use: No Preferred Language: Japanese Communication Ability: Effective X Ray Service Technician Required: No Beliefs That Will Affect Care: None Current Living Situation: Alone Feels Safe at Home: Yes Safety Concerns: Feels Safe At This Time Assistive Devices: None Review of Systems Review of Systems: All systems reviewed & are unremarkable except as noted in HPI & below Physical Exam Constitutional: no acute distress Neck: normal visual inspection Respiratory: normal respiratory effort, lungs clear to auscultation Cardiovascular: Rate/Rhythm: regular rate and regular rhythm Heart Sounds: normal S1 and normal S2; no murmur Vessels: no JVD Extremities: no edema Gastrointestinal (Abdomen): normal bowel sounds, soft, nontender, no hepatosplenomegaly Neurologic: PERRL, EOMI, accommodation nl, no face palsy, no dysarthria Results & Data Vital Signs (Past 12 Hours) Vital Signs Temp Pulse Pulse Resp BP Pulse Ox O2 Del Method 10/25/24 07:44 36.4 C L 74 18 113/72 92 Room Air 10/25/24 07:44 63 10/25/24 03:04 36.5 C 68 16 95/54 L 95 Room Air 10/25/24 00:26 78 10/24/24 23:09 36.5 C 84 16 105/70 97 Room Air 10/24/24 20:59 Room Air Laboratory Results Cardiac Enzymes 10/24/24 Range/Units 15:26 AST 9 L (13-39) U/L CBC 10/24/24 Range/Units 15:26 WBC 10.50 (4.8-10.8) K/ul RBC 5.08 (4.70-6.10) M/uL Hgb 14.7 (14.0-18.0) g/dl Hct 40.4 L (42.0-52.0) % Plt Count 359 (130-400) K/uL Neut # (Auto) 8.13 H (1.40-6.50) K/uL Lymph # (Auto) 0.85 L (1.20-3.40) K/uL Geary # (Auto) 1.10 H (0.11-0.59) K/uL Eos # (Auto) 0.08 (0.00-0.50) K/uL Baso # (Auto) 0.03 (0.00-0.20) K/uL Comprehensive Metabolic Panel 10/24/24 10/24/24 10/25/24 Range/Units 15:26 20:56 00:40 Sodium 117 L* 126 L D 126 L (136-145) mmol/L Potassium 3.7 3.3 L 3.1 L (3.5-5.1) mmol/L Chloride 83 L 94 L 95 L (98-107) mmol/L Carbon Dioxide 11 L 21 17 L (21-32) mmol/L BUN 28 H 23 18 (6-23) mg/dl Creatinine 1.32 1.06 0.93 (0.6-1.4) mg/dl Glucose 583 H* 137 H 216 H (70-99(Fasting)) mg/dl Calcium 9.0 8.4 L 8.1 L (8.6-10.3) mg/dl AST 9 L (13-39) U/L ALT 7 (7-52) U/L Alkaline Phosphatase 120 H (34-104) U/L Total Protein 6.9 (6.0-8.3) gm/dl Albumin 3.9 (3.4-5.0) gm/dl 10/25/24 Range/Units 04:28 Sodium 126 L (136-145) mmol/L Potassium 3.7 (3.5-5.1) mmol/L Chloride 95 L (98-107) mmol/L Carbon Dioxide 19 L (21-32) mmol/L BUN 17 (6-23) mg/dl Creatinine 0.96 (0.6-1.4) mg/dl Glucose 229 H (70-99(Fasting)) mg/dl Calcium 8.3 L (8.6-10.3) mg/dl AST (13-39) U/L ALT (7-52) U/L Alkaline Phosphatase (34-104) U/L Total Protein (6.0-8.3) gm/dl Albumin (3.4-5.0) gm/dl Intake and Output 10/24/24 10/25/24 10/25/24 22:59 06:59 14:59 Intake Total 3229.778 / 3698.948 469.170 / 3698.948 8.51 / 8.51 Output Total 1000 / 1000 Balance 3229.778 / 2698.948 -530.830 / 2698.948 8.51 / 8.51 Intake: IV 3229.778 / 3598.948 369.170 / 3598.948 8.51 / 8.51 Insulin Regular 250 units In 29.778 / 42.281 12.503 / 42.281 8.51 / 8.51 Sodium Chloride 0.9% 247.5 ml @ 0 UNITS/HR IV .Q0M [facility] Rx#: [id number] Magnesium Sulfate / D5w 1 gm In 100 / 100 100 ml @ 50 mls/hr IV ONE ONE Rx#:[id number] Plasma-Lyte A 1,000 ml @ 999 1000 / 1000 mls/hr IV .Q1H1M ONE Rx#: [id number] Potassium Chloride / Wtr 10 meq 200 / 456.667 256.667 / 456.667 In 100 ml @ 100 mls/hr IV Q1H [facility] Rx#:[id number] Sodium Chloride 0.45 % 1,000 ml 1000 / 1000 @ 125 mls/hr IV .Q8H [facility] Rx#: [id number] Sodium Chloride 0.9% 1,000 ml @ 1000 / 1000 999 mls/hr IV .Q1H1M ONE Rx#: [id number] Oral 100 / 100 Output: Urine 1000 / 1000 Other: Weight 86 kg 86.7 kg Weight Measurement Method Built in Bedscale Built in [facility] Diagnostic Findings Telemetry reviewed: NSR in the 60's. At 1:29 AM patient had 3 second pause during sleep. Occ PVC. EKG reviewed from 10/24/24: NSR with PVC LAD Low voltage QRS Poor R wave progression Prolonged QT 436/506 ms No prior EKG's for comparison through [place] Compared with prior outside EKG in 2018, no significant changes noted. Abdomen/Pelvis CT 10/24/24 15:17 IMPRESSION: 1. A subtle pancreatic head hypodenisty could represnt edematous changes associated with subtle related fatty stranding as well as subcentimetric reactionary perpancreatic lymph nodes could raise the possibility of early inflammatory process , however for clinical and lab correlation as well as follow up as appropriate with CT/MR if clinically warranted. Duodenal diverticulum posterior to 2nd part of duodenum. 2. Right simple renal cyst (BOSNIAK 1). 3. 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 4. Recommend clinical correlation. Electronically signed by Berry Chun 10-24-2024 6:07 PM Prior outside data reviewed: Stress echo report reviewed from August 2017 Interpretation Summary The examination is adequate to evaluate the referral indication. The left ventricular cavity size is normal. The LV wall thickness is moderately increased (concentric). The left ventricular wall motion is normal. The left ventricular diastolic function is mildly abnormal (grade I). Qualitative LV ejection Fraction = 60%. Blood pressure response to exercise was hypertensive. The stress test was terminated due to fatigue No symptoms were noted. The exercise echocardiographic examination is normal without resting left ventricular wall motion abnormalities or inducible ischemia Medications Administered Current Inpatient Medications Atorvastatin Calcium (Atorvastatin 20 Mg Tab) 20 mg PO DAILY [facility] Stop: 11/24/24 08:59 Buspirone HCl (Buspirone 5 Mg Tab) 10 mg PO BID [facility] Stop: 11/23/24 20:59 Last Admin: 10/24/24 22:22 Dose: 10 mg Cariprazine (Cariprazine Hcl 1.5 Mg Cap) 1.5 mg PO DAILY [facility] Stop: 11/24/24 08:59 Dextrose (Dextrose 50% 50 Ml Syringe) 25 - 50 ml IV UD PRN; Protocol PRN Reason: Hypoglycemia Protocol Stop: 11/23/24 16:11 Enoxaparin Sodium (Enoxaparin Inj 40 Mg/0.4 Ml Syr) 40 mg SQ Q24H [facility] Stop: 11/23/24 20:59 Last Admin: 10/24/24 22:11 Dose: 40 mg Gabapentin (Gabapentin 300 Mg Cap) 300 mg PO DAILY [facility] Stop: 11/24/24 08:59 Glucagon (Glucagon For Inj 1 Mg Vial) 1 mg SQ UD PRN; Protocol PRN Reason: Hypoglycemia Protocol Stop: 11/23/24 16:11 Glucose (Glucose 40% Gel 15 Gm Tube) 15 - 30 gm PO UD PRN; Protocol PRN Reason: Hypoglycemia Protocol Stop: 11/23/24 16:11 Glucose (Glucose 10 Tab/Tube) 4 - 8 tab PO UD PRN; Protocol PRN Reason: Hypoglycemia Protocol Stop: 11/23/24 16:11 Hydroxyzine HCl (Hydroxyzine Hcl 25 Mg Tab) 100 mg PO HS PRN PRN Reason: Sleep Stop: 11/23/24 20:15 Insulin Human Regular 250 (units/ Sodium Chloride) 250 mls @ 2.5 mls/hr IV .Q24H [facility]; Protocol Stop: 11/23/24 16:44 Last Titration: 10/25/24 08:48 Dose: 2.5 units/hr, 2.5 mls/hr Potassium Chloride/Dextrose/Sod Cl (D5w And 1/2nss + 20meq Kcl) 20 meq in 1,000 mls @ 125 mls/hr IV .Q8H [facility] Stop: 11/23/24 21:59 Last Admin: 10/24/24 22:11 Dose: 125 mls/hr Lisinopril (Lisinopril 5 Mg Tab) 5 mg PO DAILY [facility] Stop: 11/24/24 08:59 Miscellaneous (Carbohydrates For Hypoglycemia ) 15 - 30 gm PO UD PRN PRN Reason: Hypoglycemia Protocol Stop: 11/23/24 16:11 Miscellaneous Information (Pharmacy Glycemic Mgmt Consult) 1 each N/A UD PRN PRN Reason: Consult Stop: 11/23/24 20:15 Naltrexone HCl (Naltrexone Hcl 50 Mg Tab) 50 mg PO DAILY [facility] Stop: 11/24/24 08:59 Ondansetron HCl (Ondansetron Inj 2 Mg/Ml 2 Ml Vial) 4 mg IV Q6H PRN PRN Reason: Nausea Stop: 11/23/24 21:44 Venlafaxine HCl (Venlafaxine Hcl Xr 37.5 Mg Capxr) 37.5 mg PO DAILY [facility] Stop: 11/24/24 08:59
--- NOTE | 2024-10-25 09:26 | Hospitalist Progress Note ---
Date of Service October 25, 2024 Assessment & Plan (1) DKA (diabetic ketoacidosis): (2) Hyponatremia: (3) Acute dehydration: (4) Diabetes type 2: (5) HTN (hypertension): (6) Hyperlipidemia: (7) Bipolar 2 disorder: Plan 64 year old male with PMH significant for DMII, HTN, dyslipidemia, lumbar degenerative disc disease, bipolar 2, and history of alcohol dependence who presented to the ED with depression and anxiety and x10 days of N/V and was found to be in DKA. DKA, DMII, A1C 14.4% On admission Blood glucose 583 Compensated metabolic acidosis with pH 7.35 and bicarb 11 ABG obtained Received IVF on admission MIVF 1/2NS at 125mL/hr Order DKA protocol with q1hr blood sugar, q4hr VBG/BMP/mag/phos Pt continues to be on IV insulin At home on metformin, currently on hold - pt did not take any meds for a while - reports he can't afford them Glycemic pharmacy consulted and discussed with Hyponatremia/ pseudohyponatremia secondary to hyperglycemia Sodium 117 due to DKA 1/2NS maintenance fluids Monitor sodium q4hr via BMP Na improving Acute dehydration Due to vomiting and DKA Rehydration per DKA protocol CT abdomen pelvis -IMPRESSION: 1. A subtle pancreatic head hypodenisty could represnt edematous changes associated with subtle related fatty stranding as well as subcentimetric reactionary perpancreatic lymph nodes could raise the possibility of early inflammtory process , however for clinical and lab correlation as well as follow up as appropriate with CT/MR if clinically warranted. Duodenal diverticulum posterior to 2nd part of duodenum. 2. Right simple renal cyst (BOSNIAK 1). 3. 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 4. Recommend clinical correlation. Lipase 44 HTN On lisinopril at home - did not take in a while, currently on hold plan to resume on DC when BP improved, pt rehydrated Monitor BPs HLD On atorvastatin at home - pt did not take in a while Bipolar 2 On buspirone, cariprazine, desvenlafaxine - resumed on admission Patient with increasing depression and anxiety likely due to no meds in the last 30 days Psych consult placed for request to go to [facility] outpatient History of alcohol dependence Sober x8-9 years per patient On naltrexone at home - resume per home dosing DVT Prophylaxis: SQ lovenox Code Status: FULL CODE - As per discussion at bedside with the patient. PCP: Manuel Narvaez Disposition: PCU Admission and Anticipated Discharge Date Admission Date: October 24, 2024 Subjective Pt seen in follow up of DKA received fluids on admission, IV insulin Pt reported depression and plan for admission to [facility] Hgb A1c 14.4% Currently lying in bed in [facility], says he has some nausea still but overall feels improved. Denies chest pain, or shortness of breath. Denies abd. pain at this time. Reports no BM for several days, also says he has not eaten in several days. Reports not able to afford meds. Denies dysuria, cough. Denies any fevers. Review of Systems Review of Systems: All systems reviewed & are unremarkable except as noted in Subjective Physical Exam Physical Exam: General: WD/WN M in NAD Head: normocephalic, atraumatic Eyes: normal inspection, PERRL ENT: external ear and nose normal Neck: normal visual inspection Respiratory: normal respiratory effort, lungs clear to auscultation, no wheeze/rales/rhonchi, no accessory muscle use Cardiovascular: regular rate and rhythm, no murmur Extremities: no BLE edema, moves extremities Abdomen/GI: normal bowel sounds, soft, nontender Neurologic/MSK: A+Ox3, motor strength 5/5, moves all extremities Skin:warm and dry Results & Data Results & Data Vital Signs (Past 12 Hours) Vital Signs Temp Pulse Pulse Resp BP Pulse Ox O2 Del Method 10/25/24 07:44 36.4 C L 74 18 113/72 92 Room Air 10/25/24 07:44 63 10/25/24 03:04 36.5 C 68 16 95/54 L 95 Room Air 10/25/24 00:26 78 10/24/24 23:09 36.5 C 84 16 105/70 97 Room Air Laboratory Results 10/25/24 10/25/24 10/25/24 Range/Units 09:29 08:50 08:41 WBC (4.8-10.8) K/ul RBC (4.70-6.10) M/uL Hgb (14.0-18.0) g/dl POC Hgb (14.0-18.0) g/dl Hct (42.0-52.0) % POC Hct (42-52) % MCV (80.0-100.0) fL MCH (25.0-34.0) pg MCHC (32.0-36.0) g/dL RDW Std Deviation (36.4-46.3) fL RDW Coeff of Yenny (11.5-14.5) % Plt Count (130-400) K/uL MPV (9.4-12.4) fL Immature Gran % (Auto) % Neut % (Auto) % Lymph % (Auto) % [place] % (Auto) % Eos % (Auto) % Baso % (Auto) % Neut # (Auto) (1.40-6.50) K/uL Lymph # (Auto) (1.20-3.40) K/uL [place] # (Auto) (0.11-0.59) K/uL Eos # (Auto) (0.00-0.50) K/uL Baso # (Auto) (0.00-0.20) K/uL Immature Gran # (Auto) (0.01-0.20) K/uL VBG pH 7.37 (7.36-7.41) VBG pCO2 (38-50) mmHg VBG pO2 mmHg VBG HCO3 mmol/L VBG O2 Saturation % VBG Base Excess mEq/L POC Sodium (135-144) mmol/L Sodium 127 L (136-145) mmol/L POC Potassium (3.3-5.0) mmol/L Potassium 3.9 (3.5-5.1) mmol/L POC Chloride (101-112) mmol/L Chloride 99 (98-107) mmol/L Carbon Dioxide 21 (21-32) mmol/L POC Total CO2 (24-31) mmol/L Anion Gap 7 (3-11) POC Anion Gap (16-25) mmol/L POC BUN (7-18) mg/dl BUN 14 (6-23) mg/dl Creatinine 0.78 (0.6-1.4) mg/dl POC Creatinine (0.6-1.3) mg/dl Est Cr Clr Drug Dosing 100.6 ml/min eGFR 98.97 BUN/Creatinine Ratio 17.9 (10-20) Glucose 202 H (70-99(Fasting)) mg/dl POC Glucose 209 H 181 H (70-99) mg/dl POC Glucose (other) (70-99) mg/dl Estimat Average Glucose mg/dl Hemoglobin A1c (4.5-5.6) % Calcium 8.1 L (8.6-10.3) mg/dl POC Ioniz Calcium Wen (1.12-1.32) mmol/l Phosphorus 1.6 L (2.5-4.9) mg/dl Magnesium 2.0 (1.7-2.4) mg/dl Total Bilirubin (0.2-1.0) mg/dl AST (13-39) U/L ALT (7-52) U/L Alkaline Phosphatase (34-104) U/L Total Protein (6.0-8.3) gm/dl Albumin (3.4-5.0) gm/dl Globulin (2.5-4.0) gm/dl Albumin/Globulin Ratio (0.9-2) Lipase (11-82) U/L TSH (0.300-4.500) uIu/ml Urine Color Urine Appearance (Clear) Urine pH (4.5-7.5) Ur Specific [place] (1.000-1.030) Urine Protein (Negative) Urine Glucose (UA) (Negative) Urine Ketones (Negative) Urine Blood (Negative) Urine Nitrite (Negative) Urine Bilirubin (Negative) Urine Urobilinogen (Negative) Ur Leukocyte Esterase (Negative) Salicylates (3.0-30) mg/dl Urine Opiates Screen (Neg) Ur Methadone, Qual (Neg) Urine Fentanyl Screen (Neg) Acetaminophen (10-30) ug/ml Urine Barbiturates (Neg) Ur Phencyclidine (PCP) (Neg) U Amphetamin/Meth Scrn (Neg) MDMA (Ecstasy) Screen (Neg) U Benzodiazepines Scrn (Neg) Ur Cocaine Metabolite (Neg) U Marijuana (THC) Screen (Neg) Ethyl Alcohol mg/dL (<10.0) mg/dl SARS-CoV-2, RNA, NAAT (NEGATIVE) 10/25/24 10/25/24 10/25/24 Range/Units 07:26 06:27 05:14 WBC (4.8-10.8) K/ul RBC (4.70-6.10) M/uL Hgb (14.0-18.0) g/dl POC Hgb (14.0-18.0) g/dl Hct (42.0-52.0) % POC Hct (42-52) % MCV (80.0-100.0) fL MCH (25.0-34.0) pg MCHC (32.0-36.0) g/dL RDW Std Deviation (36.4-46.3) fL RDW Coeff of Yenny (11.5-14.5) % Plt Count (130-400) K/uL MPV (9.4-12.4) fL Immature Gran % (Auto) % Neut % (Auto) % Lymph % (Auto) % [place] % (Auto) % Eos % (Auto) % Baso % (Auto) % Neut # (Auto) (1.40-6.50) K/uL Lymph # (Auto) (1.20-3.40) K/uL [place] # (Auto) (0.11-0.59) K/uL Eos # (Auto) (0.00-0.50) K/uL Baso # (Auto) (0.00-0.20) K/uL Immature Gran # (Auto) (0.01-0.20) K/uL VBG pH (7.36-7.41) VBG pCO2 (38-50) mmHg VBG pO2 mmHg VBG HCO3 mmol/L VBG O2 Saturation % VBG Base Excess mEq/L POC Sodium (135-144) mmol/L Sodium (136-145) mmol/L POC Potassium (3.3-5.0) mmol/L Potassium (3.5-5.1) mmol/L POC Chloride (101-112) mmol/L Chloride (98-107) mmol/L Carbon Dioxide (21-32) mmol/L POC Total CO2 (24-31) mmol/L Anion Gap (3-11) POC Anion Gap (16-25) mmol/L POC BUN (7-18) mg/dl BUN (6-23) mg/dl Creatinine (0.6-1.4) mg/dl POC Creatinine (0.6-1.3) mg/dl Est Cr Clr Drug Dosing ml/min eGFR BUN/Creatinine Ratio (10-20) Glucose (70-99(Fasting)) mg/dl POC Glucose 239 H 264 H 199 H (70-99) mg/dl POC Glucose (other) (70-99) mg/dl Estimat Average Glucose mg/dl Hemoglobin A1c (4.5-5.6) % Calcium (8.6-10.3) mg/dl POC Ioniz Calcium Wen (1.12-1.32) mmol/l Phosphorus (2.5-4.9) mg/dl Magnesium (1.7-2.4) mg/dl Total Bilirubin (0.2-1.0) mg/dl AST (13-39) U/L ALT (7-52) U/L Alkaline Phosphatase (34-104) U/L Total Protein (6.0-8.3) gm/dl Albumin (3.4-5.0) gm/dl Globulin (2.5-4.0) gm/dl Albumin/Globulin Ratio (0.9-2) Lipase (11-82) U/L TSH (0.300-4.500) uIu/ml Urine Color Urine Appearance (Clear) Urine pH (4.5-7.5) Ur Specific [place] (1.000-1.030) Urine Protein (Negative) Urine Glucose (UA) (Negative) Urine Ketones (Negative) Urine Blood (Negative) Urine Nitrite (Negative) Urine Bilirubin (Negative) Urine Urobilinogen (Negative) Ur Leukocyte Esterase (Negative) Salicylates (3.0-30) mg/dl Urine Opiates Screen (Neg) Ur Methadone, Qual (Neg) Urine Fentanyl Screen (Neg) Acetaminophen (10-30) ug/ml Urine Barbiturates (Neg) Ur Phencyclidine (PCP) (Neg) U Amphetamin/Meth Scrn (Neg) MDMA (Ecstasy) Screen (Neg) U Benzodiazepines Scrn (Neg) Ur Cocaine Metabolite (Neg) U Marijuana (THC) Screen (Neg) Ethyl Alcohol mg/dL (<10.0) mg/dl SARS-CoV-2, RNA, NAAT (NEGATIVE) 10/25/24 10/25/24 10/25/24 Range/Units 04:28 04:25 03:19 WBC (4.8-10.8) K/ul RBC (4.70-6.10) M/uL Hgb (14.0-18.0) g/dl POC Hgb (14.0-18.0) g/dl Hct (42.0-52.0) % POC Hct (42-52) % MCV (80.0-100.0) fL MCH (25.0-34.0) pg MCHC (32.0-36.0) g/dL RDW Std Deviation (36.4-46.3) fL RDW Coeff of Yenny (11.5-14.5) % Plt Count (130-400) K/uL MPV (9.4-12.4) fL Immature Gran % (Auto) % Neut % (Auto) % Lymph % (Auto) % [place] % (Auto) % Eos % (Auto) % Baso % (Auto) % Neut # (Auto) (1.40-6.50) K/uL Lymph # (Auto) (1.20-3.40) K/uL [place] # (Auto) (0.11-0.59) K/uL Eos # (Auto) (0.00-0.50) K/uL Baso # (Auto) (0.00-0.20) K/uL Immature Gran # (Auto) (0.01-0.20) K/uL VBG pH 7.31 L (7.36-7.41) VBG pCO2 (38-50) mmHg VBG pO2 mmHg VBG HCO3 mmol/L VBG O2 Saturation % VBG Base Excess mEq/L POC Sodium (135-144) mmol/L Sodium 126 L (136-145) mmol/L POC Potassium (3.3-5.0) mmol/L Potassium 3.7 (3.5-5.1) mmol/L POC Chloride (101-112) mmol/L Chloride 95 L (98-107) mmol/L Carbon Dioxide 19 L (21-32) mmol/L POC Total CO2 (24-31) mmol/L Anion Gap 12 H (3-11) POC Anion Gap (16-25) mmol/L POC BUN (7-18) mg/dl BUN 17 (6-23) mg/dl Creatinine 0.96 (0.6-1.4) mg/dl POC Creatinine (0.6-1.3) mg/dl Est Cr Clr Drug Dosing 81.7 ml/min eGFR 87.72 BUN/Creatinine Ratio 17.7 (10-20) Glucose 229 H (70-99(Fasting)) mg/dl POC Glucose 211 H 183 H (70-99) mg/dl POC Glucose (other) (70-99) mg/dl Estimat Average Glucose mg/dl Hemoglobin A1c (4.5-5.6) % Calcium 8.3 L (8.6-10.3) mg/dl POC Ioniz Calcium Wen (1.12-1.32) mmol/l Phosphorus 2.4 L (2.5-4.9) mg/dl Magnesium 2.1 (1.7-2.4) mg/dl Total Bilirubin (0.2-1.0) mg/dl AST (13-39) U/L ALT (7-52) U/L Alkaline Phosphatase (34-104) U/L Total Protein (6.0-8.3) gm/dl Albumin (3.4-5.0) gm/dl Globulin (2.5-4.0) gm/dl Albumin/Globulin Ratio (0.9-2) Lipase (11-82) U/L TSH (0.300-4.500) uIu/ml Urine Color Urine Appearance (Clear) Urine pH (4.5-7.5) Ur Specific [place] (1.000-1.030) Urine Protein (Negative) Urine Glucose (UA) (Negative) Urine Ketones (Negative) Urine Blood (Negative) Urine Nitrite (Negative) Urine Bilirubin (Negative) Urine Urobilinogen (Negative) Ur Leukocyte Esterase (Negative) Salicylates (3.0-30) mg/dl Urine Opiates Screen (Neg) Ur Methadone, Qual (Neg) Urine Fentanyl Screen (Neg) Acetaminophen (10-30) ug/ml Urine Barbiturates (Neg) Ur Phencyclidine (PCP) (Neg) U Amphetamin/Meth Scrn (Neg) MDMA (Ecstasy) Screen (Neg) U Benzodiazepines Scrn (Neg) Ur Cocaine Metabolite (Neg) U Marijuana (THC) Screen (Neg) Ethyl Alcohol mg/dL (<10.0) mg/dl SARS-CoV-2, RNA, NAAT (NEGATIVE) 10/25/24 10/25/24 10/25/24 Range/Units 02:15 01:13 00:40 WBC (4.8-10.8) K/ul RBC (4.70-6.10) M/uL Hgb (14.0-18.0) g/dl POC Hgb (14.0-18.0) g/dl Hct (42.0-52.0) % POC Hct (42-52) % MCV (80.0-100.0) fL MCH (25.0-34.0) pg MCHC (32.0-36.0) g/dL RDW Std Deviation (36.4-46.3) fL RDW Coeff of Yenny (11.5-14.5) % Plt Count (130-400) K/uL MPV (9.4-12.4) fL Immature Gran % (Auto) % Neut % (Auto) % Lymph % (Auto) % [place] % (Auto) % Eos % (Auto) % Baso % (Auto) % Neut # (Auto) (1.40-6.50) K/uL Lymph # (Auto) (1.20-3.40) K/uL [place] # (Auto) (0.11-0.59) K/uL Eos # (Auto) (0.00-0.50) K/uL Baso # (Auto) (0.00-0.20) K/uL Immature Gran # (Auto) (0.01-0.20) K/uL VBG pH 7.35 L (7.36-7.41) VBG pCO2 (38-50) mmHg VBG pO2 mmHg VBG HCO3 mmol/L VBG O2 Saturation % VBG Base Excess mEq/L POC Sodium (135-144) mmol/L Sodium 126 L (136-145) mmol/L POC Potassium (3.3-5.0) mmol/L Potassium 3.1 L (3.5-5.1) mmol/L POC Chloride (101-112) mmol/L Chloride 95 L (98-107) mmol/L Carbon Dioxide 17 L (21-32) mmol/L POC Total CO2 (24-31) mmol/L Anion Gap 14 H (3-11) POC Anion Gap (16-25) mmol/L POC BUN (7-18) mg/dl BUN 18 (6-23) mg/dl Creatinine 0.93 (0.6-1.4) mg/dl POC Creatinine (0.6-1.3) mg/dl Est Cr Clr Drug Dosing 84.3 ml/min eGFR 91.12 BUN/Creatinine Ratio 19.4 (10-20) Glucose 216 H (70-99(Fasting)) mg/dl POC Glucose 195 H 216 H (70-99) mg/dl POC Glucose (other) (70-99) mg/dl Estimat Average Glucose mg/dl Hemoglobin A1c (4.5-5.6) % Calcium 8.1 L (8.6-10.3) mg/dl POC Ioniz Calcium Wen (1.12-1.32) mmol/l Phosphorus 2.7 (2.5-4.9) mg/dl Magnesium 1.9 (1.7-2.4) mg/dl Total Bilirubin (0.2-1.0) mg/dl AST (13-39) U/L ALT (7-52) U/L Alkaline Phosphatase (34-104) U/L Total Protein (6.0-8.3) gm/dl Albumin (3.4-5.0) gm/dl Globulin (2.5-4.0) gm/dl Albumin/Globulin Ratio (0.9-2) Lipase (11-82) U/L TSH (0.300-4.500) uIu/ml Urine Color Urine Appearance (Clear) Urine pH (4.5-7.5) Ur Specific [place] (1.000-1.030) Urine Protein (Negative) Urine Glucose (UA) (Negative) Urine Ketones (Negative) Urine Blood (Negative) Urine Nitrite (Negative) Urine Bilirubin (Negative) Urine Urobilinogen (Negative) Ur Leukocyte Esterase (Negative) Salicylates (3.0-30) mg/dl Urine Opiates Screen (Neg) Ur Methadone, Qual (Neg) Urine Fentanyl Screen (Neg) Acetaminophen (10-30) ug/ml Urine Barbiturates (Neg) Ur Phencyclidine (PCP) (Neg) U Amphetamin/Meth Scrn (Neg) MDMA (Ecstasy) Screen (Neg) U Benzodiazepines Scrn (Neg) Ur Cocaine Metabolite (Neg) U Marijuana (THC) Screen (Neg) Ethyl Alcohol mg/dL (<10.0) mg/dl SARS-CoV-2, RNA, NAAT (NEGATIVE) 10/25/24 10/24/24 10/24/24 Range/Units 00:11 23:09 22:50 WBC (4.8-10.8) K/ul RBC (4.70-6.10) M/uL Hgb (14.0-18.0) g/dl POC Hgb (14.0-18.0) g/dl Hct (42.0-52.0) % POC Hct (42-52) % MCV (80.0-100.0) fL MCH (25.0-34.0) pg MCHC (32.0-36.0) g/dL RDW Std Deviation (36.4-46.3) fL RDW Coeff of Yenny (11.5-14.5) % Plt Count (130-400) K/uL MPV (9.4-12.4) fL Immature Gran % (Auto) % Neut % (Auto) % Lymph % (Auto) % [place] % (Auto) % Eos % (Auto) % Baso % (Auto) % Neut # (Auto) (1.40-6.50) K/uL Lymph # (Auto) (1.20-3.40) K/uL [place] # (Auto) (0.11-0.59) K/uL Eos # (Auto) (0.00-0.50) K/uL Baso # (Auto) (0.00-0.20) K/uL Immature Gran # (Auto) (0.01-0.20) K/uL VBG pH (7.36-7.41) VBG pCO2 (38-50) mmHg VBG pO2 mmHg VBG HCO3 mmol/L VBG O2 Saturation % VBG Base Excess mEq/L POC Sodium (135-144) mmol/L Sodium (136-145) mmol/L POC Potassium (3.3-5.0) mmol/L Potassium (3.5-5.1) mmol/L POC Chloride (101-112) mmol/L Chloride (98-107) mmol/L Carbon Dioxide (21-32) mmol/L POC Total CO2 (24-31) mmol/L Anion Gap (3-11) POC Anion Gap (16-25) mmol/L POC BUN (7-18) mg/dl BUN (6-23) mg/dl Creatinine (0.6-1.4) mg/dl POC Creatinine (0.6-1.3) mg/dl Est Cr Clr Drug Dosing ml/min eGFR BUN/Creatinine Ratio (10-20) Glucose (70-99(Fasting)) mg/dl POC Glucose 201 H 168 H 147 H (70-99) mg/dl POC Glucose (other) (70-99) mg/dl Estimat Average Glucose mg/dl Hemoglobin A1c (4.5-5.6) % Calcium (8.6-10.3) mg/dl POC Ioniz Calcium Wen (1.12-1.32) mmol/l Phosphorus (2.5-4.9) mg/dl Magnesium (1.7-2.4) mg/dl Total Bilirubin (0.2-1.0) mg/dl AST (13-39) U/L ALT (7-52) U/L Alkaline Phosphatase (34-104) U/L Total Protein (6.0-8.3) gm/dl Albumin (3.4-5.0) gm/dl Globulin (2.5-4.0) gm/dl Albumin/Globulin Ratio (0.9-2) Lipase (11-82) U/L TSH (0.300-4.500) uIu/ml Urine Color Urine Appearance (Clear) Urine pH (4.5-7.5) Ur Specific [place] (1.000-1.030) Urine Protein (Negative) Urine Glucose (UA) (Negative) Urine Ketones (Negative) Urine Blood (Negative) Urine Nitrite (Negative) Urine Bilirubin (Negative) Urine Urobilinogen (Negative) Ur Leukocyte Esterase (Negative) Salicylates (3.0-30) mg/dl Urine Opiates Screen (Neg) Ur Methadone, Qual (Neg) Urine Fentanyl Screen (Neg) Acetaminophen (10-30) ug/ml Urine Barbiturates (Neg) Ur Phencyclidine (PCP) (Neg) U Amphetamin/Meth Scrn (Neg) MDMA (Ecstasy) Screen (Neg) U Benzodiazepines Scrn (Neg) Ur Cocaine Metabolite (Neg) U Marijuana (THC) Screen (Neg) Ethyl Alcohol mg/dL (<10.0) mg/dl SARS-CoV-2, RNA, NAAT (NEGATIVE) 10/24/24 10/24/24 10/24/24 Range/Units 22:37 22:14 22:01 WBC (4.8-10.8) K/ul RBC (4.70-6.10) M/uL Hgb (14.0-18.0) g/dl POC Hgb (14.0-18.0) g/dl Hct (42.0-52.0) % POC Hct (42-52) % MCV (80.0-100.0) fL MCH (25.0-34.0) pg MCHC (32.0-36.0) g/dL RDW Std Deviation (36.4-46.3) fL RDW Coeff of Yenny (11.5-14.5) % Plt Count (130-400) K/uL MPV (9.4-12.4) fL Immature Gran % (Auto) % Neut % (Auto) % Lymph % (Auto) % [place] % (Auto) % Eos % (Auto) % Baso % (Auto) % Neut # (Auto) (1.40-6.50) K/uL Lymph # (Auto) (1.20-3.40) K/uL [place] # (Auto) (0.11-0.59) K/uL Eos # (Auto) (0.00-0.50) K/uL Baso # (Auto) (0.00-0.20) K/uL Immature Gran # (Auto) (0.01-0.20) K/uL VBG pH (7.36-7.41) VBG pCO2 (38-50) mmHg VBG pO2 mmHg VBG HCO3 mmol/L VBG O2 Saturation % VBG Base Excess mEq/L POC Sodium (135-144) mmol/L Sodium (136-145) mmol/L POC Potassium (3.3-5.0) mmol/L Potassium (3.5-5.1) mmol/L POC Chloride (101-112) mmol/L Chloride (98-107) mmol/L Carbon Dioxide (21-32) mmol/L POC Total CO2 (24-31) mmol/L Anion Gap (3-11) POC Anion Gap (16-25) mmol/L POC BUN (7-18) mg/dl BUN (6-23) mg/dl Creatinine (0.6-1.4) mg/dl POC Creatinine (0.6-1.3) mg/dl Est Cr Clr Drug Dosing ml/min eGFR BUN/Creatinine Ratio (10-20) Glucose (70-99(Fasting)) mg/dl POC Glucose 143 H 141 H 127 H (70-99) mg/dl POC Glucose (other) (70-99) mg/dl Estimat Average Glucose mg/dl Hemoglobin A1c (4.5-5.6) % Calcium (8.6-10.3) mg/dl POC Ioniz Calcium Wen (1.12-1.32) mmol/l Phosphorus (2.5-4.9) mg/dl Magnesium (1.7-2.4) mg/dl Total Bilirubin (0.2-1.0) mg/dl AST (13-39) U/L ALT (7-52) U/L Alkaline Phosphatase (34-104) U/L Total Protein (6.0-8.3) gm/dl Albumin (3.4-5.0) gm/dl Globulin (2.5-4.0) gm/dl Albumin/Globulin Ratio (0.9-2) Lipase (11-82) U/L TSH (0.300-4.500) uIu/ml Urine Color Urine Appearance (Clear) Urine pH (4.5-7.5) Ur Specific [place] (1.000-1.030) Urine Protein (Negative) Urine Glucose (UA) (Negative) Urine Ketones (Negative) Urine Blood (Negative) Urine Nitrite (Negative) Urine Bilirubin (Negative) Urine Urobilinogen (Negative) Ur Leukocyte Esterase (Negative) Salicylates (3.0-30) mg/dl Urine Opiates Screen (Neg) Ur Methadone, Qual (Neg) Urine Fentanyl Screen (Neg) Acetaminophen (10-30) ug/ml Urine Barbiturates (Neg) Ur Phencyclidine (PCP) (Neg) U Amphetamin/Meth Scrn (Neg) MDMA (Ecstasy) Screen (Neg) U Benzodiazepines Scrn (Neg) Ur Cocaine Metabolite (Neg) U Marijuana (THC) Screen (Neg) Ethyl Alcohol mg/dL (<10.0) mg/dl SARS-CoV-2, RNA, NAAT (NEGATIVE) 10/24/24 10/24/24 10/24/24 Range/Units 21:46 21:33 21:14 WBC (4.8-10.8) K/ul RBC (4.70-6.10) M/uL Hgb (14.0-18.0) g/dl POC Hgb (14.0-18.0) g/dl Hct (42.0-52.0) % POC Hct (42-52) % MCV (80.0-100.0) fL MCH (25.0-34.0) pg MCHC (32.0-36.0) g/dL RDW Std Deviation (36.4-46.3) fL RDW Coeff of Yenny (11.5-14.5) % Plt Count (130-400) K/uL MPV (9.4-12.4) fL Immature Gran % (Auto) % Neut % (Auto) % Lymph % (Auto) % [place] % (Auto) % Eos % (Auto) % Baso % (Auto) % Neut # (Auto) (1.40-6.50) K/uL Lymph # (Auto) (1.20-3.40) K/uL [place] # (Auto) (0.11-0.59) K/uL Eos # (Auto) (0.00-0.50) K/uL Baso # (Auto) (0.00-0.20) K/uL Immature Gran # (Auto) (0.01-0.20) K/uL VBG pH (7.36-7.41) VBG pCO2 (38-50) mmHg VBG pO2 mmHg VBG HCO3 mmol/L VBG O2 Saturation % VBG Base Excess mEq/L POC Sodium (135-144) mmol/L Sodium (136-145) mmol/L POC Potassium (3.3-5.0) mmol/L Potassium (3.5-5.1) mmol/L POC Chloride (101-112) mmol/L Chloride (98-107) mmol/L Carbon Dioxide (21-32) mmol/L POC Total CO2 (24-31) mmol/L Anion Gap (3-11) POC Anion Gap (16-25) mmol/L POC BUN (7-18) mg/dl BUN (6-23) mg/dl Creatinine (0.6-1.4) mg/dl POC Creatinine (0.6-1.3) mg/dl Est Cr Clr Drug Dosing ml/min eGFR BUN/Creatinine Ratio (10-20) Glucose (70-99(Fasting)) mg/dl POC Glucose 112 H 115 H 136 H (70-99) mg/dl POC Glucose (other) (70-99) mg/dl Estimat Average Glucose mg/dl Hemoglobin A1c (4.5-5.6) % Calcium (8.6-10.3) mg/dl POC Ioniz Calcium Wen (1.12-1.32) mmol/l Phosphorus (2.5-4.9) mg/dl Magnesium (1.7-2.4) mg/dl Total Bilirubin (0.2-1.0) mg/dl AST (13-39) U/L ALT (7-52) U/L Alkaline Phosphatase (34-104) U/L Total Protein (6.0-8.3) gm/dl Albumin (3.4-5.0) gm/dl Globulin (2.5-4.0) gm/dl Albumin/Globulin Ratio (0.9-2) Lipase (11-82) U/L TSH (0.300-4.500) uIu/ml Urine Color Urine Appearance (Clear) Urine pH (4.5-7.5) Ur Specific [place] (1.000-1.030) Urine Protein (Negative) Urine Glucose (UA) (Negative) Urine Ketones (Negative) Urine Blood (Negative) Urine Nitrite (Negative) Urine Bilirubin (Negative) Urine Urobilinogen (Negative) Ur Leukocyte Esterase (Negative) Salicylates (3.0-30) mg/dl Urine Opiates Screen (Neg) Ur Methadone, Qual (Neg) Urine Fentanyl Screen (Neg) Acetaminophen (10-30) ug/ml Urine Barbiturates (Neg) Ur Phencyclidine (PCP) (Neg) U Amphetamin/Meth Scrn (Neg) MDMA (Ecstasy) Screen (Neg) U Benzodiazepines Scrn (Neg) Ur Cocaine Metabolite (Neg) U Marijuana (THC) Screen (Neg) Ethyl Alcohol mg/dL (<10.0) mg/dl SARS-CoV-2, RNA, NAAT (NEGATIVE) 10/24/24 10/24/24 10/24/24 Range/Units 20:56 20:23 19:11 WBC (4.8-10.8) K/ul RBC (4.70-6.10) M/uL Hgb (14.0-18.0) g/dl POC Hgb (14.0-18.0) g/dl Hct (42.0-52.0) % POC Hct (42-52) % MCV (80.0-100.0) fL MCH (25.0-34.0) pg MCHC (32.0-36.0) g/dL RDW Std Deviation (36.4-46.3) fL RDW Coeff of Yenny (11.5-14.5) % Plt Count (130-400) K/uL MPV (9.4-12.4) fL Immature Gran % (Auto) % Neut % (Auto) % Lymph % (Auto) % [place] % (Auto) % Eos % (Auto) % Baso % (Auto) % Neut # (Auto) (1.40-6.50) K/uL Lymph # (Auto) (1.20-3.40) K/uL [place] # (Auto) (0.11-0.59) K/uL Eos # (Auto) (0.00-0.50) K/uL Baso # (Auto) (0.00-0.20) K/uL Immature Gran # (Auto) (0.01-0.20) K/uL VBG pH 7.38 (7.36-7.41) VBG pCO2 (38-50) mmHg VBG pO2 mmHg VBG HCO3 mmol/L VBG O2 Saturation % VBG Base Excess mEq/L POC Sodium (135-144) mmol/L Sodium 126 L D (136-145) mmol/L POC Potassium (3.3-5.0) mmol/L Potassium 3.3 L (3.5-5.1) mmol/L POC Chloride (101-112) mmol/L Chloride 94 L (98-107) mmol/L Carbon Dioxide 21 (21-32) mmol/L POC Total CO2 (24-31) mmol/L Anion Gap 11 (3-11) POC Anion Gap (16-25) mmol/L POC BUN (7-18) mg/dl BUN 23 (6-23) mg/dl Creatinine 1.06 (0.6-1.4) mg/dl POC Creatinine (0.6-1.3) mg/dl Est Cr Clr Drug Dosing 74.0 ml/min eGFR 77.88 BUN/Creatinine Ratio 21.7 H (10-20) Glucose 137 H (70-99(Fasting)) mg/dl POC Glucose 204 H 200 H (70-99) mg/dl POC Glucose (other) (70-99) mg/dl Estimat Average Glucose mg/dl Hemoglobin A1c (4.5-5.6) % Calcium 8.4 L (8.6-10.3) mg/dl POC Ioniz Calcium Wen (1.12-1.32) mmol/l Phosphorus 2.3 L D (2.5-4.9) mg/dl Magnesium 2.0 (1.7-2.4) mg/dl Total Bilirubin (0.2-1.0) mg/dl AST (13-39) U/L ALT (7-52) U/L Alkaline Phosphatase (34-104) U/L Total Protein (6.0-8.3) gm/dl Albumin (3.4-5.0) gm/dl Globulin (2.5-4.0) gm/dl Albumin/Globulin Ratio (0.9-2) Lipase (11-82) U/L TSH (0.300-4.500) uIu/ml Urine Color Urine Appearance (Clear) Urine pH (4.5-7.5) Ur Specific [place] (1.000-1.030) Urine Protein (Negative) Urine Glucose (UA) (Negative) Urine Ketones (Negative) Urine Blood (Negative) Urine Nitrite (Negative) Urine Bilirubin (Negative) Urine Urobilinogen (Negative) Ur Leukocyte Esterase (Negative) Salicylates (3.0-30) mg/dl Urine Opiates Screen (Neg) Ur Methadone, Qual (Neg) Urine Fentanyl Screen (Neg) Acetaminophen (10-30) ug/ml Urine Barbiturates (Neg) Ur Phencyclidine (PCP) (Neg) U Amphetamin/Meth Scrn (Neg) MDMA (Ecstasy) Screen (Neg) U Benzodiazepines Scrn (Neg) Ur Cocaine Metabolite (Neg) U Marijuana (THC) Screen (Neg) Ethyl Alcohol mg/dL (<10.0) mg/dl SARS-CoV-2, RNA, NAAT (NEGATIVE) 10/24/24 10/24/24 10/24/24 Range/Units 18:20 16:34 15:45 WBC (4.8-10.8) K/ul RBC (4.70-6.10) M/uL Hgb (14.0-18.0) g/dl POC Hgb (14.0-18.0) g/dl Hct (42.0-52.0) % POC Hct (42-52) % MCV (80.0-100.0) fL MCH (25.0-34.0) pg MCHC (32.0-36.0) g/dL RDW Std Deviation (36.4-46.3) fL RDW Coeff of Yenny (11.5-14.5) % Plt Count (130-400) K/uL MPV (9.4-12.4) fL Immature Gran % (Auto) % Neut % (Auto) % Lymph % (Auto) % [place] % (Auto) % Eos % (Auto) % Baso % (Auto) % Neut # (Auto) (1.40-6.50) K/uL Lymph # (Auto) (1.20-3.40) K/uL [place] # (Auto) (0.11-0.59) K/uL Eos # (Auto) (0.00-0.50) K/uL Baso # (Auto) (0.00-0.20) K/uL Immature Gran # (Auto) (0.01-0.20) K/uL VBG pH 7.35 L (7.36-7.41) VBG pCO2 19 L (38-50) mmHg VBG pO2 78 mmHg VBG HCO3 11 mmol/L VBG O2 Saturation 96.6 % VBG Base Excess -12.7 mEq/L POC Sodium (135-144) mmol/L Sodium (136-145) mmol/L POC Potassium (3.3-5.0) mmol/L Potassium (3.5-5.1) mmol/L POC Chloride (101-112) mmol/L Chloride (98-107) mmol/L Carbon Dioxide (21-32) mmol/L POC Total CO2 (24-31) mmol/L Anion Gap (3-11) POC Anion Gap (16-25) mmol/L POC BUN (7-18) mg/dl BUN (6-23) mg/dl Creatinine (0.6-1.4) mg/dl POC Creatinine (0.6-1.3) mg/dl Est Cr Clr Drug Dosing ml/min eGFR BUN/Creatinine Ratio (10-20) Glucose (70-99(Fasting)) mg/dl POC Glucose 319 H* 449 H* (70-99) mg/dl POC Glucose (other) (70-99) mg/dl Estimat Average Glucose mg/dl Hemoglobin A1c (4.5-5.6) % Calcium (8.6-10.3) mg/dl POC Ioniz Calcium Wen (1.12-1.32) mmol/l Phosphorus (2.5-4.9) mg/dl Magnesium (1.7-2.4) mg/dl Total Bilirubin (0.2-1.0) mg/dl AST (13-39) U/L ALT (7-52) U/L Alkaline Phosphatase (34-104) U/L Total Protein (6.0-8.3) gm/dl Albumin (3.4-5.0) gm/dl Globulin (2.5-4.0) gm/dl Albumin/Globulin Ratio (0.9-2) Lipase (11-82) U/L TSH (0.300-4.500) uIu/ml Urine Color Urine Appearance (Clear) Urine pH (4.5-7.5) Ur Specific [place] (1.000-1.030) Urine Protein (Negative) Urine Glucose (UA) (Negative) Urine Ketones (Negative) Urine Blood (Negative) Urine Nitrite (Negative) Urine Bilirubin (Negative) Urine Urobilinogen (Negative) Ur Leukocyte Esterase (Negative) Salicylates (3.0-30) mg/dl Urine Opiates Screen (Neg) Ur Methadone, Qual (Neg) Urine Fentanyl Screen (Neg) Acetaminophen (10-30) ug/ml Urine Barbiturates (Neg) Ur Phencyclidine (PCP) (Neg) U Amphetamin/Meth Scrn (Neg) MDMA (Ecstasy) Screen (Neg) U Benzodiazepines Scrn (Neg) Ur Cocaine Metabolite (Neg) U Marijuana (THC) Screen (Neg) Ethyl Alcohol mg/dL (<10.0) mg/dl SARS-CoV-2, RNA, NAAT (NEGATIVE) 10/24/24 10/24/24 Range/Units 15:31 15:26 WBC 10.50 (4.8-10.8) K/ul RBC 5.08 (4.70-6.10) M/uL Hgb 14.7 (14.0-18.0) g/dl POC Hgb 15.0 (14.0-18.0) g/dl Hct 40.4 L (42.0-52.0) % POC Hct 44 (42-52) % MCV 79.5 L (80.0-100.0) fL MCH 28.9 (25.0-34.0) pg MCHC 36.4 H (32.0-36.0) g/dL RDW Std Deviation 35.6 L (36.4-46.3) fL RDW Coeff of Yenny 12.5 (11.5-14.5) % Plt Count 359 (130-400) K/uL MPV 11.2 (9.4-12.4) fL Immature Gran % (Auto) 3.0 % Neut % (Auto) 77.3 % Lymph % (Auto) 8.1 % [place] % (Auto) 10.5 % Eos % (Auto) 0.8 % Baso % (Auto) 0.3 % Neut # (Auto) 8.13 H (1.40-6.50) K/uL Lymph # (Auto) 0.85 L (1.20-3.40) K/uL [place] # (Auto) 1.10 H (0.11-0.59) K/uL Eos # (Auto) 0.08 (0.00-0.50) K/uL Baso # (Auto) 0.03 (0.00-0.20) K/uL Immature Gran # (Auto) 0.31 H (0.01-0.20) K/uL VBG pH (7.36-7.41) VBG pCO2 (38-50) mmHg VBG pO2 mmHg VBG HCO3 mmol/L VBG O2 Saturation % VBG Base Excess mEq/L POC Sodium 116 L* (135-144) mmol/L Sodium 117 L* (136-145) mmol/L POC Potassium 3.6 (3.3-5.0) mmol/L Potassium 3.7 (3.5-5.1) mmol/L POC Chloride 88 L (101-112) mmol/L Chloride 83 L (98-107) mmol/L Carbon Dioxide 11 L (21-32) mmol/L POC Total CO2 11 L (24-31) mmol/L Anion Gap 23 H (3-11) POC Anion Gap 22.0 (16-25) mmol/L POC BUN 26 H (7-18) mg/dl BUN 28 H (6-23) mg/dl Creatinine 1.32 (0.6-1.4) mg/dl POC Creatinine 1.0 (0.6-1.3) mg/dl Est Cr Clr Drug Dosing 59.4 ml/min eGFR 59.86 BUN/Creatinine Ratio 21.2 H (10-20) Glucose 583 H* (70-99(Fasting)) mg/dl POC Glucose (70-99) mg/dl POC Glucose (other) 620 H* (70-99) mg/dl Estimat Average Glucose 367 mg/dl Hemoglobin A1c 14.4 H (4.5-5.6) % Calcium 9.0 (8.6-10.3) mg/dl POC Ioniz Calcium Wen 1.13 (1.12-1.32) mmol/l Phosphorus 3.4 (2.5-4.9) mg/dl Magnesium 2.0 (1.7-2.4) mg/dl Total Bilirubin 1.2 H (0.2-1.0) mg/dl AST 9 L (13-39) U/L ALT 7 (7-52) U/L Alkaline Phosphatase 120 H (34-104) U/L Total Protein 6.9 (6.0-8.3) gm/dl Albumin 3.9 (3.4-5.0) gm/dl Globulin 3.0 (2.5-4.0) gm/dl Albumin/Globulin Ratio 1.3 (0.9-2) Lipase 44 (11-82) U/L TSH 2.478 (0.300-4.500) uIu/ml Urine Color Yellow Urine Appearance Clear (Clear) Urine pH 6.0 (4.5-7.5) Ur Specific [place] 1.029 (1.000-1.030) Urine Protein Negative (Negative) Urine Glucose (UA) 3+ H (Negative) Urine Ketones 3+ H (Negative) Urine Blood Negative (Negative) Urine Nitrite Negative (Negative) Urine Bilirubin Negative (Negative) Urine Urobilinogen Negative (Negative) Ur Leukocyte Esterase Negative (Negative) Salicylates < 3.0 L (3.0-30) mg/dl Urine Opiates Screen Neg (Neg) Ur Methadone, Qual Neg (Neg) Urine Fentanyl Screen Neg (Neg) Acetaminophen < 3 L (10-30) ug/ml Urine Barbiturates Neg (Neg) Ur Phencyclidine (PCP) Neg (Neg) U Amphetamin/Meth Scrn Neg (Neg) MDMA (Ecstasy) Screen Neg (Neg) U Benzodiazepines Scrn Neg (Neg) Ur Cocaine Metabolite Neg (Neg) U Marijuana (THC) Screen Neg (Neg) Ethyl Alcohol mg/dL < 10.0 (<10.0) mg/dl SARS-CoV-2, RNA, NAAT NEGATIVE (NEGATIVE) Medications Administered Current Inpatient Medications Atorvastatin Calcium (Atorvastatin 20 Mg Tab) 20 mg PO DAILY [facility] Stop: 11/24/24 08:59 Buspirone HCl (Buspirone 5 Mg Tab) 10 mg PO BID [facility] Stop: 11/23/24 20:59 Last Admin: 10/24/24 22:22 Dose: 10 mg Cariprazine (Cariprazine Hcl 1.5 Mg Cap) 1.5 mg PO DAILY [facility] Stop: 11/24/24 08:59 Dextrose (Dextrose 50% 50 Ml Syringe) 25 - 50 ml IV UD PRN; Protocol PRN Reason: Hypoglycemia Protocol Stop: 11/23/24 16:11 Enoxaparin Sodium (Enoxaparin Inj 40 Mg/0.4 Ml Syr) 40 mg SQ Q24H [facility] Stop: 11/23/24 20:59 Last Admin: 10/24/24 22:11 Dose: 40 mg Gabapentin (Gabapentin 300 Mg Cap) 300 mg PO DAILY [facility] Stop: 11/24/24 08:59 Glucagon (Glucagon For Inj 1 Mg Vial) 1 mg SQ UD PRN; Protocol PRN Reason: Hypoglycemia Protocol Stop: 11/23/24 16:11 Glucose (Glucose 40% Gel 15 Gm Tube) 15 - 30 gm PO UD PRN; Protocol PRN Reason: Hypoglycemia Protocol Stop: 11/23/24 16:11 Glucose (Glucose 10 Tab/Tube) 4 - 8 tab PO UD PRN; Protocol PRN Reason: Hypoglycemia Protocol Stop: 11/23/24 16:11 Hydroxyzine HCl (Hydroxyzine Hcl 25 Mg Tab) 100 mg PO HS PRN PRN Reason: Sleep Stop: 11/23/24 20:15 Insulin Human Regular 250 (units/ Sodium Chloride) 250 mls @ 2.5 mls/hr IV .Q24H [facility]; Protocol Stop: 11/23/24 16:44 Last Titration: 10/25/24 08:48 Dose: 2.5 units/hr, 2.5 mls/hr Potassium Chloride/Dextrose/Sod Cl (D5w And 1/2nss + 20meq Kcl) 20 meq in 1,000 mls @ 125 mls/hr IV .Q8H [facility] Stop: 11/23/24 21:59 Last Admin: 10/24/24 22:11 Dose: 125 mls/hr Insulin Aspart (Insulin Aspart Per Unit Charge) 0 units SC ACHS [facility] Stop: 11/24/24 11:29 Lisinopril (Lisinopril 5 Mg Tab) 5 mg PO DAILY [facility] Stop: 11/24/24 08:59 Miscellaneous (Carbohydrates For Hypoglycemia ) 15 - 30 gm PO UD PRN PRN Reason: Hypoglycemia Protocol Stop: 11/23/24 16:11 Miscellaneous Information (Pharmacy Glycemic Mgmt Consult) 1 each N/A UD PRN PRN Reason: Consult Stop: 11/23/24 20:15 Naltrexone HCl (Naltrexone Hcl 50 Mg Tab) 50 mg PO DAILY [facility] Stop: 11/24/24 08:59 Ondansetron HCl (Ondansetron Inj 2 Mg/Ml 2 Ml Vial) 4 mg IV Q6H PRN PRN Reason: Nausea Stop: 11/23/24 21:44 Venlafaxine HCl (Venlafaxine Hcl Xr 37.5 Mg Capxr) 37.5 mg PO DAILY [facility] Stop: 11/24/24 08:59 (5) HTN (hypertension) Hypertension type: unspecified Qualified Code(s): I10 - Essential (primary) hypertension
[2024-10-25 09:27] LABS: BUN Creatinine Ratio 17.9 (10-20); Calcium 8.1 mg/dl (8.6-10.3); Creatinine Clr Calc Pharmacy 100.6 ml/min; Phosphorus 1.6 mg/dl (2.5-4.9); Potassium 3.9 mmol/L (3.5-5.1)
[2024-10-25] MEDS: ATORVASTATIN 20 MG TAB PO SCH (09:58)
[2024-10-25] MEDS: GABAPENTIN 300 MG CAP PO SCH (09:58)
[2024-10-25] MEDS: NALTREXONE HCL 50 MG TAB PO SCH (09:59)
[2024-10-25] MEDS: lisinopril 5 MG TAB PO SCH (09:59)
[2024-10-25] MEDS: VENLAFAXINE HCL XR 37.5 MG CAPXR PO SCH (10:00)
[2024-10-25] MEDS: CARIPRAZINE HCL 1.5 MG CAP PO SCH (10:02)
--- NOTE | 2024-10-25 10:16 | Electrocardiogram Report ---
Test Reason : Blood Pressure : */* mmHG Vent. Rate : 81 BPM Atrial Rate : 81 BPM P-R Int : 192 ms QRS Dur : 104 ms QT Int : 436 ms P-R-T Axes : 52 -59 35 degrees QTcB Int : 506 ms Sinus rhythm with occasional Premature ventricular complexes Left axis deviation Low voltage QRS Poor R wave progression, consider anterior MN vs. lead placement vs. LVH Prolonged QT Abnormal ECG No previous ECGs available Confirmed by Sherman Teague [id number]) on 10/25/2024 10:16:35 AM Referred By: REFERRED SELF Confirmed By: Sherman Teague
[2024-10-25] MEDS ORDERED: SODIUM PHOSPHATE 3 MMOL/1 ML INFUSION IV STA (10:19)
[2024-10-25] MEDS: SODIUM PHOSPHATE 9 MMOL in SODIUM CHLORIDE 0.9% 250 ML IV ONE (10:51)
[2024-10-25] MEDS: INSULIN ASPART PER UNIT CHARGE SC SCH ×2 (11:38→16:45)
[2024-10-25 13:25] LABS: BUN Creatinine Ratio 14.5 (10-20); Calcium 8.1 mg/dl (8.6-10.3); Creatinine Clr Calc Pharmacy 94.5 ml/min; Magnesium 1.9 mg/dl (1.7-2.4); Phosphorus 2.1 mg/dl (2.5-4.9); Potassium 3.5 mmol/L (3.5-5.1)
[2024-10-25] MEDS: LANTUS PER UNIT CHARGE SC ONE (14:02)
[2024-10-25] MEDS: POTASSIUM PHOSPHATE 6 MMOL in SODIUM CHLORIDE 0.9% 100 ML IV ONE (14:03)
--- NOTE | 2024-10-25 15:16 | Pharmacy Report ---
Pharmacy Glycemic Short Note 2 - Date of Service October 25, 2024 - Glycemic Short BSG Results (Last 24 hours): 10/24/24 10/24/24 10/24/24 15:26 15:31 16:34 Glucose 583 H* POC Glucose 449 H* POC Glucose (other) 620 H* 10/24/24 10/24/24 10/24/24 18:20 19:11 20:23 Glucose POC Glucose 319 H* 200 H 204 H POC Glucose (other) 10/24/24 10/24/24 10/24/24 20:56 21:14 21:33 Glucose 137 H POC Glucose 136 H 115 H POC Glucose (other) 10/24/24 10/24/24 10/24/24 21:46 22:01 22:14 Glucose POC Glucose 112 H 127 H 141 H POC Glucose (other) 10/24/24 10/24/24 10/24/24 22:37 22:50 23:09 Glucose POC Glucose 143 H 147 H 168 H POC Glucose (other) 10/25/24 10/25/24 10/25/24 00:11 00:40 01:13 Glucose 216 H POC Glucose 201 H 216 H POC Glucose (other) 10/25/24 10/25/24 10/25/24 02:15 03:19 04:25 Glucose POC Glucose 195 H 183 H 211 H POC Glucose (other) 10/25/24 10/25/24 10/25/24 04:28 05:14 06:27 Glucose 229 H POC Glucose 199 H 264 H POC Glucose (other) 10/25/24 10/25/24 10/25/24 07:26 08:41 08:50 Glucose 202 H POC Glucose 239 H 181 H POC Glucose (other) 10/25/24 10/25/24 10/25/24 09:29 10:20 11:27 Glucose POC Glucose 209 H 184 H 157 H POC Glucose (other) 10/25/24 10/25/24 10/25/24 12:19 12:30 12:46 Glucose 181 H POC Glucose 165 H 189 H POC Glucose (other) 10/25/24 10/25/24 13:35 14:29 Glucose POC Glucose 173 H 167 H POC Glucose (other) OUTPATIENT ANTIDIABETIC REGIMEN: * metformin 1000mg po bid HbA1c: 14.4% on 10/24/24 ASSESSMENT: * 64 year old male admitted last evening for nausea and vomiting which had been on going for the past week. Pharmacy has been consulted for glycemic management while he is admitted. * Labs on admit showed AG of 23, CO2 of 11, Blood glucose of 583, pH of 7.34. DKA protocol was ordered and an insulin drip was initiated last evening. * BSGs improved quickly overnight and fluids were changed to d5 1/2nss + 20 kcl once BSG in goal range. (K+ was low this morning, but replaced). The AG did not close and C02 did not normalize this morning. With the 1215 check, the gap closed x 2, CO2 normalized and BSG was 173 so it was decided to start transitioning the patient off of the insulin drip. * Lantus 15 units SQ x 1 was ordered and RN instructed to overlap with the drip for at least 2 more hours. * A weight based bolus insulin regimen with a stress of 2 will be initiated at dinner time tonight if the drip is able to be shut off. PLAN FOR INPATIENT GLYCEMIC CONTROL: * Hold outpatient oral diabetes medications * Basal insulin * Currently on insulin drip--running at 2.5 units/hr * Lantus 15 units SQ x 1, further dosing will be based on additional BSGs * Bolus insulin * NovoLog per scale ACHS or Q6hrs while NPO * Goal Range: Low 120 mg/dL - High 150 mg/dL * Correction Factor: 25 mg/dL/unit * Nutritional / Prandial insulin per carb ratio of 1 unit per 9 grams CHO consumed
--- NOTE | 2024-10-25 15:33 | Electrocardiogram Report ---
Test Reason : Blood Pressure : */* mmHG Vent. Rate : 61 BPM Atrial Rate : 61 BPM P-R Int : 196 ms QRS Dur : 100 ms QT Int : 466 ms P-R-T Axes : 59 -48 56 degrees QTcB Int : 469 ms Normal sinus rhythm Left axis deviation Abnormal ECG When compared with ECG of 24-Oct-2024 17:57, Premature ventricular complexes are no longer Present Confirmed by Sherman Teague ([id number]) on 10/25/2024 3:33:51 PM Referred By: REFERRED SELF Confirmed By: Sherman Teague
[2024-10-25 16:50] LABS: BUN Creatinine Ratio 14.3 (10-20); Calcium 8.1 mg/dl (8.6-10.3); Creatinine Clr Calc Pharmacy 101.9 ml/min; Magnesium 1.9 mg/dl (1.7-2.4); Phosphorus 2.4 mg/dl (2.5-4.9); Potassium 3.7 mmol/L (3.5-5.1)
[2024-10-25] MEDS: LANTUS PER UNIT CHARGE SC SCH (17:17)
[2024-10-25] MEDS: POTASSIUM PHOS 3 MMOL/1 ML INFUSION IV STA (17:59)
[2024-10-25] MEDS: hydrOXYzine HCl 25 MG TAB PO PRN (19:57)
[2024-10-25 20:35] LABS: BUN Creatinine Ratio 12.5 (10-20); Calcium 8.3 mg/dl (8.6-10.3); Magnesium 1.8 mg/dl (1.7-2.4); Phosphorus 2.1 mg/dl (2.5-4.9); Potassium 3.3 mmol/L (3.5-5.1)
[2024-10-26 06:36] LABS: Hematocrit (blood only) 32.1 % (42.0-52.0); Hemoglobin 11.2 g/dl (14.0-18.0); Mean Corpuscular Hemoglobin 28.7 pg (25.0-34.0); Mean Corpuscular Hgb Conc 34.9 g/dL (32.0-36.0); Mean Corpuscular Volume 82.3 fL (80.0-100.0); Mean Platelet Volume 11.3 fL (9.4-12.4); Platelet Count 196 K/uL (130-400); RDW Standard Deviation 39.2 fL (36.4-46.3); White Blood Count 7.17 K/ul (4.8-10.8)
[2024-10-26 08:03] LABS: BUN Creatinine Ratio 11.8 (10-20); Calcium 8.1 mg/dl (8.6-10.3); Creatinine Clr Calc Pharmacy 115.3 ml/min; Magnesium 1.7 mg/dl (1.7-2.4); Phosphorus 2.5 mg/dl (2.5-4.9); Potassium 3.6 mmol/L (3.5-5.1)
[2024-10-26] MEDS: LANTUS PER UNIT CHARGE SC SCH ×2 (08:48→21:01)
--- NOTE | 2024-10-26 11:49 | Hospitalist Progress Note ---
Date of Service October 26, 2024 Assessment & Plan (1) DKA (diabetic ketoacidosis): (2) Hyponatremia: (3) Acute dehydration: (4) Diabetes type 2: (5) HTN (hypertension): (6) Hyperlipidemia: (7) Bipolar 2 disorder: Plan 64 year old male with PMH significant for DMII, HTN, dyslipidemia, lumbar degenerative disc disease, bipolar 2, and history of alcohol dependence who presented to the ED with depression and anxiety and x10 days of N/V and was found to be in DKA. DKA, DMII, A1C 14.4% On admission Blood glucose 583 Compensated metabolic acidosis with pH 7.35 and bicarb 11 ABG obtained Received IVF on admission MIVF 1/2NS at 125mL/hr Order DKA protocol with q1hr blood sugar, q4hr VBG/BMP/mag/phos Now off IV insulin -> transitioned to subq insulin At home on metformin, currently on hold - pt did not take any meds for a while - reports he can't afford them Glycemic pharmacy consulted and discussed with Hyponatremia/ pseudohyponatremia secondary to hyperglycemia Sodium 117 due to DKA 1/2NS maintenance fluids Monitor sodium q4hr via BMP , now check daily Na improved Acute dehydration Due to vomiting and DKA Rehydration per DKA protocol CT abdomen pelvis -IMPRESSION: 1. A subtle pancreatic head hypodenisty could represnt edematous changes associated with subtle related fatty stranding as well as subcentimetric reactionary perpancreatic lymph nodes could raise the possibility of early inflammtory process , however for clinical and lab correlation as well as follow up as appropriate with CT/MR if clinically warranted. Duodenal diverticulum posterior to 2nd part of duodenum. 2. Right simple renal cyst (BOSNIAK 1). 3. 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 4. Recommend clinical correlation. Lipase 44 HTN On lisinopril at home - did not take in a while, currently on hold plan to resume on DC when BP improved, pt rehydrated Monitor BPs HLD On atorvastatin at home - pt did not take in a while Bipolar 2 On buspirone, cariprazine, desvenlafaxine - resumed on admission Patient with increasing depression and anxiety likely due to no meds in the last 30 days Psych consult placed for request to go to [facility] outpatient Discussed w/ psychiatry today (10/27) D/c cariprazine Start aripiprazole 5mg QD Increase venlafaxine ER to 75mg QD Continue buspirone and naltrexone F/u with outpatient psychiatry Case management intake No indication for inpatient psychiatry admission at this time No indication for bedside sitter History of alcohol dependence Sober x8-9 years per patient On naltrexone at home - resume per home dosing DVT Prophylaxis: SQ lovenox Code Status: FULL CODE - As per discussion at bedside with the patient. PCP: Manuel Narvaez Disposition: PCU Admission and Anticipated Discharge Date Admission Date: October 24, 2024 Subjective Pt seen in follow up of DKA received fluids on admission, IV insulin Pt reported depression and plan for admission to [facility] Hgb A1c 14.4% Currently lying in bed in NAD, overall feels improved. Denies chest pain, or shortness of breath. Denies abd. pain at this time. Reports no BM for several days. Denies dysuria, cough. Denies any fevers. Reports he is eating now, and feels well. However he is not getting up from bed. Denies any difficulty ambulating. Discussed w/ psychiatry - medication changes Review of Systems Review of Systems: All systems reviewed & are unremarkable except as noted in Subjective Physical Exam Physical Exam: General: WD/WN M in NAD Head: normocephalic, atraumatic Eyes: normal inspection, PERRL ENT: external ear and nose normal Neck: normal visual inspection Respiratory: normal respiratory effort, lungs clear to auscultation, no wheeze/rales/rhonchi, no accessory muscle use Cardiovascular: regular rate and rhythm, no murmur Extremities: no BLE edema, moves extremities Abdomen/GI: normal bowel sounds, soft, nontender Neurologic/MSK: A+Ox3, motor strength 5/5, moves all extremities Skin:warm and dry Results & Data Results & Data Vital Signs (Past 12 Hours) Vital Signs Temp Pulse Pulse Pulse Resp BP Pulse Ox 10/26/24 11:13 36.8 C 85 18 90/54 L 92 10/26/24 07:53 36.9 C 83 18 103/57 L 94 10/26/24 07:50 73 10/26/24 03:10 36.5 C 72 19 97/62 L 94 10/26/24 02:42 63 Pulse Ox O2 Del Method O2 Del Method 10/26/24 11:13 Room Air 10/26/24 07:53 Room Air 10/26/24 07:50 10/26/24 03:10 Room Air 10/26/24 02:42 96 Room Air Laboratory Results 10/26/24 10/26/24 10/26/24 Range/Units 11:09 07:33 07:21 WBC (4.8-10.8) K/ul RBC (4.70-6.10) M/uL Hgb (14.0-18.0) g/dl Hct (42.0-52.0) % MCV (80.0-100.0) fL MCH (25.0-34.0) pg MCHC (32.0-36.0) g/dL RDW Std Deviation (36.4-46.3) fL RDW Coeff of Yenny (11.5-14.5) % Plt Count (130-400) K/uL MPV (9.4-12.4) fL VBG pH (7.36-7.41) Sodium 127 L (136-145) mmol/L Potassium 3.6 (3.5-5.1) mmol/L Chloride 99 (98-107) mmol/L Carbon Dioxide 20 L (21-32) mmol/L Anion Gap 8 (3-11) BUN 8 (6-23) mg/dl Creatinine 0.68 (0.6-1.4) mg/dl Est Cr Clr Drug Dosing 115.3 ml/min eGFR 103.15 BUN/Creatinine Ratio 11.8 (10-20) Glucose 172 H (70-99(Fasting)) mg/dl POC Glucose 246 H 200 H (70-99) mg/dl Calcium 8.1 L (8.6-10.3) mg/dl Phosphorus 2.5 (2.5-4.9) mg/dl Magnesium 1.7 (1.7-2.4) mg/dl 10/26/24 10/25/24 10/25/24 Range/Units 05:51 19:58 19:57 WBC 7.17 (4.8-10.8) K/ul RBC 3.90 L (4.70-6.10) M/uL Hgb 11.2 L D (14.0-18.0) g/dl Hct 32.1 L (42.0-52.0) % MCV 82.3 (80.0-100.0) fL MCH 28.7 (25.0-34.0) pg MCHC 34.9 (32.0-36.0) g/dL RDW Std Deviation 39.2 (36.4-46.3) fL RDW Coeff of Yenny 13.0 (11.5-14.5) % Plt Count 196 (130-400) K/uL MPV 11.3 (9.4-12.4) fL VBG pH 7.34 L (7.36-7.41) Sodium 130 L (136-145) mmol/L Potassium 3.3 L (3.5-5.1) mmol/L Chloride 101 (98-107) mmol/L Carbon Dioxide 24 (21-32) mmol/L Anion Gap 5 (3-11) BUN 10 (6-23) mg/dl Creatinine 0.80 (0.6-1.4) mg/dl Est Cr Clr Drug Dosing 98.0 ml/min eGFR 98.21 BUN/Creatinine Ratio 12.5 (10-20) Glucose 183 H (70-99(Fasting)) mg/dl POC Glucose 177 H (70-99) mg/dl Calcium 8.3 L (8.6-10.3) mg/dl Phosphorus 2.1 L (2.5-4.9) mg/dl Magnesium 1.8 (1.7-2.4) mg/dl 10/25/24 10/25/24 10/25/24 Range/Units 19:08 17:08 16:19 WBC (4.8-10.8) K/ul RBC (4.70-6.10) M/uL Hgb (14.0-18.0) g/dl Hct (42.0-52.0) % MCV (80.0-100.0) fL MCH (25.0-34.0) pg MCHC (32.0-36.0) g/dL RDW Std Deviation (36.4-46.3) fL RDW Coeff of Yenny (11.5-14.5) % Plt Count (130-400) K/uL MPV (9.4-12.4) fL VBG pH (7.36-7.41) Sodium (136-145) mmol/L Potassium (3.5-5.1) mmol/L Chloride (98-107) mmol/L Carbon Dioxide (21-32) mmol/L Anion Gap (3-11) BUN (6-23) mg/dl Creatinine (0.6-1.4) mg/dl Est Cr Clr Drug Dosing ml/min eGFR BUN/Creatinine Ratio (10-20) Glucose (70-99(Fasting)) mg/dl POC Glucose 199 H 175 H 188 H (70-99) mg/dl Calcium (8.6-10.3) mg/dl Phosphorus (2.5-4.9) mg/dl Magnesium (1.7-2.4) mg/dl 10/25/24 10/25/24 10/25/24 Range/Units 16:15 15:38 14:29 WBC (4.8-10.8) K/ul RBC (4.70-6.10) M/uL Hgb (14.0-18.0) g/dl Hct (42.0-52.0) % MCV (80.0-100.0) fL MCH (25.0-34.0) pg MCHC (32.0-36.0) g/dL RDW Std Deviation (36.4-46.3) fL RDW Coeff of Yenny (11.5-14.5) % Plt Count (130-400) K/uL MPV (9.4-12.4) fL VBG pH 7.37 (7.36-7.41) Sodium 130 L (136-145) mmol/L Potassium 3.7 (3.5-5.1) mmol/L Chloride 102 (98-107) mmol/L Carbon Dioxide 22 (21-32) mmol/L Anion Gap 6 (3-11) BUN 11 (6-23) mg/dl Creatinine 0.77 (0.6-1.4) mg/dl Est Cr Clr Drug Dosing 101.9 ml/min eGFR 99.35 BUN/Creatinine Ratio 14.3 (10-20) Glucose 168 H (70-99(Fasting)) mg/dl POC Glucose 170 H 167 H (70-99) mg/dl Calcium 8.1 L (8.6-10.3) mg/dl Phosphorus 2.4 L (2.5-4.9) mg/dl Magnesium 1.9 (1.7-2.4) mg/dl 10/25/24 10/25/24 10/25/24 Range/Units 13:35 12:46 12:30 WBC (4.8-10.8) K/ul RBC (4.70-6.10) M/uL Hgb (14.0-18.0) g/dl Hct (42.0-52.0) % MCV (80.0-100.0) fL MCH (25.0-34.0) pg MCHC (32.0-36.0) g/dL RDW Std Deviation (36.4-46.3) fL RDW Coeff of Yenny (11.5-14.5) % Plt Count (130-400) K/uL MPV (9.4-12.4) fL VBG pH 7.34 L (7.36-7.41) Sodium 129 L (136-145) mmol/L Potassium 3.5 (3.5-5.1) mmol/L Chloride 100 (98-107) mmol/L Carbon Dioxide 23 (21-32) mmol/L Anion Gap 6 (3-11) BUN 12 (6-23) mg/dl Creatinine 0.83 (0.6-1.4) mg/dl Est Cr Clr Drug Dosing 94.5 ml/min eGFR 97.13 BUN/Creatinine Ratio 14.5 (10-20) Glucose 181 H (70-99(Fasting)) mg/dl POC Glucose 173 H 189 H (70-99) mg/dl Calcium 8.1 L (8.6-10.3) mg/dl Phosphorus 2.1 L (2.5-4.9) mg/dl Magnesium 1.9 (1.7-2.4) mg/dl 10/25/24 Range/Units 12:19 WBC (4.8-10.8) K/ul RBC (4.70-6.10) M/uL Hgb (14.0-18.0) g/dl Hct (42.0-52.0) % MCV (80.0-100.0) fL MCH (25.0-34.0) pg MCHC (32.0-36.0) g/dL RDW Std Deviation (36.4-46.3) fL RDW Coeff of Yenny (11.5-14.5) % Plt Count (130-400) K/uL MPV (9.4-12.4) fL VBG pH (7.36-7.41) Sodium (136-145) mmol/L Potassium (3.5-5.1) mmol/L Chloride (98-107) mmol/L Carbon Dioxide (21-32) mmol/L Anion Gap (3-11) BUN (6-23) mg/dl Creatinine (0.6-1.4) mg/dl Est Cr Clr Drug Dosing ml/min eGFR BUN/Creatinine Ratio (10-20) Glucose (70-99(Fasting)) mg/dl POC Glucose 165 H (70-99) mg/dl Calcium (8.6-10.3) mg/dl Phosphorus (2.5-4.9) mg/dl Magnesium (1.7-2.4) mg/dl Medications Administered Current Inpatient Medications Atorvastatin Calcium (Atorvastatin 20 Mg Tab) 20 mg PO DAILY [facility] Stop: 11/24/24 08:59 Last Admin: 10/26/24 07:40 Dose: 20 mg Buspirone HCl (Buspirone 5 Mg Tab) 10 mg PO BID [facility] Stop: 11/23/24 20:59 Last Admin: 10/26/24 07:40 Dose: 10 mg Cariprazine (Cariprazine Hcl 1.5 Mg Cap) 1.5 mg PO DAILY [facility] Stop: 11/24/24 08:59 Last Admin: 10/26/24 07:38 Dose: 1.5 mg Dextrose (Dextrose 50% 50 Ml Syringe) 25 - 50 ml IV UD PRN; Protocol PRN Reason: Hypoglycemia Protocol Stop: 11/23/24 16:11 Enoxaparin Sodium (Enoxaparin Inj 40 Mg/0.4 Ml Syr) 40 mg SQ Q24H [facility] Stop: 11/23/24 20:59 Last Admin: 10/25/24 19:58 Dose: 40 mg Gabapentin (Gabapentin 300 Mg Cap) 300 mg PO DAILY [facility] Stop: 11/24/24 08:59 Last Admin: 10/26/24 07:39 Dose: 300 mg Glucagon (Glucagon For Inj 1 Mg Vial) 1 mg SQ UD PRN; Protocol PRN Reason: Hypoglycemia Protocol Stop: 11/23/24 16:11 Glucose (Glucose 40% Gel 15 Gm Tube) 15 - 30 gm PO UD PRN; Protocol PRN Reason: Hypoglycemia Protocol Stop: 11/23/24 16:11 Glucose (Glucose 10 Tab/Tube) 4 - 8 tab PO UD PRN; Protocol PRN Reason: Hypoglycemia Protocol Stop: 11/23/24 16:11 Hydroxyzine HCl (Hydroxyzine Hcl 25 Mg Tab) 100 mg PO HS PRN PRN Reason: Sleep Stop: 11/23/24 20:15 Last Admin: 10/25/24 19:57 Dose: 100 mg Potassium Chloride/Sodium Chloride (1/2 Nss + 20meq Kcl 1000ml) 20 meq in 1,000 mls @ 125 mls/hr IV .Q8H [facility] Stop: 11/24/24 14:29 Last Admin: 10/26/24 04:26 Dose: 125 mls/hr Sodium Chloride (Nss) 1,000 mls @ 125 mls/hr IV .Q8H ONE Stop: 10/26/24 19:46 Insulin Aspart (Insulin Aspart Per Unit Charge) 0 units SC ACHS [facility] Stop: 11/24/24 16:29 Last Admin: 10/26/24 08:48 Dose: 9 units Insulin Glargine (Lantus Per Unit Charge) 20 units SC DAILY [facility] Stop: 11/25/24 08:59 Last Admin: 10/26/24 08:48 Dose: 20 units Insulin Glargine (Lantus Per Unit Charge) 0 units SC HS [facility]; Protocol Stop: 11/25/24 20:59 Lisinopril (Lisinopril 5 Mg Tab) 5 mg PO DAILY [facility] Stop: 11/24/24 08:59 Last Admin: 10/25/24 09:59 Dose: 5 mg Miscellaneous (Carbohydrates For Hypoglycemia ) 15 - 30 gm PO UD PRN PRN Reason: Hypoglycemia Protocol Stop: 11/23/24 16:11 Miscellaneous Information (Pharmacy Glycemic Mgmt Consult) 1 each N/A UD PRN PRN Reason: Consult Stop: 11/23/24 20:15 Naltrexone HCl (Naltrexone Hcl 50 Mg Tab) 50 mg PO DAILY [facility] Stop: 11/24/24 08:59 Last Admin: 10/26/24 07:32 Dose: 50 mg Ondansetron HCl (Ondansetron Inj 2 Mg/Ml 2 Ml Vial) 4 mg IV Q6H PRN PRN Reason: Nausea Stop: 11/23/24 21:44 Venlafaxine HCl (Venlafaxine Hcl Xr 37.5 Mg Capxr) 37.5 mg PO DAILY [facility] Stop: 11/24/24 08:59 Last Admin: 10/26/24 07:39 Dose: 37.5 mg (5) HTN (hypertension) Hypertension type: unspecified Qualified Code(s): I10 - Essential (primary) hypertension
[2024-10-26] MEDS: SODIUM CHLORIDE 0.9% 1,000 ML IV ONE (12:48)
[2024-10-26] MEDS: THIAMINE HCL 100 MG in SYRINGE 9 ML IV SCH (13:33)
[2024-10-26] MEDS: MULTIVITAMIN TAB PO SCH (13:35)
[2024-10-26] MEDS: FOLIC ACID 1 MG TAB PO SCH (13:35)
[2024-10-26] MEDS: MAGNESIUM SULFATE / D5W 1 GM/100 ML BAG IV ONE (18:48)
[2024-10-27 07:16] LABS: Hematocrit (blood only) 32.4 % (42.0-52.0); Hemoglobin 11.2 g/dl (14.0-18.0); Mean Corpuscular Hemoglobin 28.9 pg (25.0-34.0); Mean Corpuscular Hgb Conc 34.6 g/dL (32.0-36.0); Mean Corpuscular Volume 83.7 fL (80.0-100.0); Mean Platelet Volume 11.6 fL (9.4-12.4); Platelet Count 164 K/uL (130-400); RDW Coefficient of Variation 13.1 % (11.5-14.5); RDW Standard Deviation 39.9 fL (36.4-46.3); Red Blood Count 3.87 M/uL (4.70-6.10); White Blood Count 5.47 K/ul (4.8-10.8)
[2024-10-27 07:36] LABS: BUN Creatinine Ratio 10.4 (10-20); Calcium 8.3 mg/dl (8.6-10.3); Creatinine Clr Calc Pharmacy 117.1 ml/min; Magnesium 1.7 mg/dl (1.7-2.4); Phosphorus 2.9 mg/dl (2.5-4.9); Potassium 3.1 mmol/L (3.5-5.1)
[2024-10-27] MEDS: LANTUS PER UNIT CHARGE SC SCH (08:22)
[2024-10-27] MEDS: POTASSIUM CHLORIDE CRTAB 20 MEQ TABCR PO STA (08:26)
[2024-10-27] MEDS: MAGNESIUM SULFATE / D5W 1 GM/100 ML BAG IV ONE (09:26)
--- NOTE | 2024-10-27 13:41 | Psychiatric Consultation ---
Date of Consultation October 27, 2024 Impression / Recommendations Impression 64 h/o DMII, HTN, dyslipidemia, lumbar degenerative disc disease, bipolar 2, and history of alcohol dependence who presented to the ED with depression and anxiety and x10 days of N/V and was found to be in DKA. Psychiatry consulted for medication recs and safety assessment. Patient presenting in major depressive episode with recent poor self care and medication non-adherence in the context of financial constraints, loss of support (broke up with girlfriend). Reports h/o bipolar condition however depression is primary problem with no problematic hypomania. Concern for Cluster C PD with dependent traits. Health status is improving. Patient would benefit from utilization of community resources for a new phone, transportation assistance, and medication assistance. Given high cost of cariprazine and savanna lar efficacy to aripiprazole and past tolerance will switch to aripiprazole. Will optimize venlafaxine dose. Patient currently denies SI, is future oriented, presents intact reality testing, and presents a rational future plan upon discharge. No acute safety concerns identified. He is connected to outpatient psychiatry with upcoming appointment. No current indication for inpatient psychiatry admission. Overall, I spent a total of 80 minutes with this case including review of chart records, nursing report, review of lab work, direct evaluation of the patient at bedside, counseling the patient, discussion of the patient with the hospitalist provider, discussion with the psychiatric liaison during clinical rounds, and documentation in the electronic health record. (1) Depression: (2) Cluster C personality disorder in adult: (3) Alcohol use disorder, moderate, in sustained remission: (4) Medication nonadherence due to psychosocial problem: Plan D/c cariprazine Start aripiprazole 5mg QD Increase venlafaxine ER to 75mg QD Continue buspirone and naltrexone F/u with outpatient psychiatry Case management intake No indication for inpatient psychiatry admission at this time No indication for bedside sitter Psych History Identifying Data 64 h/o DMII, HTN, dyslipidemia, lumbar degenerative disc disease, bipolar 2, and history of alcohol dependence who presented to the ED with depression and anxiety and x10 days of N/V and was found to be in DKA. Psychiatry consulted for medication recs and safety assessment. Chief Complaint Depression, medication non-adherence History of Present Illness Patient reports recent stressor of girlfriend breaking up with him. She was living with him in his house and helping to pay for medications. He is unemployed on disability. He reports past diagnosis of bipolar 2 depression and was doing well with medications. Said that he stopped taking medications for the past 2 to 3 months due to financial problems. Reports follow-up at [facility] on December 04. Complains of current low mood, sleep maintenance difficulties, feelings of worthlessness and hopelessness. He denies suicidal ideation. Wants to improve his health status. Reports past case management however did not follow up. Reports being sober from alcohol for past 9 years. Feels that his medications are helpful. Denies having any side effects on Abilify. Allergies Allergy/AdvReac Type Severity Reaction Status Date / Time lamotrigine [From Lamictal] Allergy Intermediate Rash Verified 10/24/24 16:45 red (food color) Allergy Intermediate Rash Verified 10/24/24 16:45 Sulfa (Sulfonamide Allergy Intermediate Rash Verified 10/24/24 16:45 Antibiotics) blue dye Allergy Unknown ON Verified 10/24/24 16:45 [employer] LIST yellow dye Allergy Unknown ON Verified 10/24/24 16:45 [employer] Home Medications Medication Instructions Recorded Confirmed Type buspirone 10 mg tablet 10 mg PO BID 09/18/19 10/24/24 History gabapentin 300 mg capsule 300 mg PO DAILY 09/18/19 10/24/24 History (Neurontin) naltrexone 50 mg tablet 50 mg PO DAILY 09/18/19 10/24/24 History acetaminophen 325 mg tablet 650 mg PO TID PRN Pain 12/04/19 10/24/24 History (Tylenol) atorvastatin 20 mg tablet 20 mg PO DAILY 10/24/24 10/24/24 History cariprazine 1.5 mg capsule 1.5 mg PO DAILY 10/24/24 10/24/24 History (Vraylar) desvenlafaxine succinate 100 mg 100 mg PO DAILY 10/24/24 10/24/24 History tablet,extended release 24 hr (Pristiq) hydroxyzine HCl 50 mg tablet 100 mg PO HS PRN Sleep 10/24/24 10/24/24 History lisinopril 5 mg tablet 5 mg PO DAILY 10/24/24 10/24/24 History metformin 500 mg tablet,extended 1,000 mg PO BID 10/24/24 10/24/24 History release 24 hr Patient History Medical History (Updated 10/27/24 @ 13:51 by Jak Joseph MD) CODY (acute kidney injury) Alcohol dependence Back pain Work related injury Hypertension Hand laceration Encounter for wound re-check Social History (Updated 10/24/24 @ 17:44 by JACQUIE Ennis) Smoking Status: Never smoker Tobacco Type: Smokeless Tobacco (Dip or Chew) Hx Alcohol Use: No Hx Substance Use: No Preferred Language: [place]agu[place] Communication Ability: Effective Maintenance Plumber Required: No Beliefs That Will Affect Care: None Current Living Situation: Alone Feels Safe at Home: Yes Safety Concerns: Feels Safe At This Time Assistive Devices: None Physical Exam Mental Examination: Appearance: Disheveled Eye Contact: Maintains Eye Contact Motor Behavior: Slowed Speech: Soft Mood: Euthymic and Calm Affect: Appropriate and Constricted Thought Process: Intact and Linear Thought Content: Intact Hallucinations: None Insight: Fair Judgement: Poor (to limited) Vital Signs (Past 24 Hours): Last Vital Signs Temp 36.4 C L 10/27/24 11:52 Pulse 79 10/27/24 11:52 Resp 17 10/27/24 11:52 BP 104/67 10/27/24 11:52 Pulse Ox 93 10/27/24 11:52 O2 Del Method Room Air 10/27/24 11:52 Results & Data (PSY) Medications Administered Atorvastatin Calcium (Atorvastatin 20 Mg Tab) 20 mg PO DAILY MARGA Stop: 11/24/24 08:59 Last Admin: 10/27/24 08:28 Dose: 20 mg Documented By: Admin: 10/26/24 07:40 Dose: 20 mg Documented By: Admin: 10/25/24 09:58 Dose: 20 mg Documented By: Buspirone HCl (Buspirone 5 Mg Tab) 10 mg PO BID MARGA Stop: 11/23/24 20:59 Last Admin: 10/27/24 08:27 Dose: 10 mg Documented By: Admin: 10/26/24 21:00 Dose: 10 mg Documented By: Admin: 10/26/24 07:40 Dose: 10 mg Documented By: Admin: 10/25/24 19:57 Dose: 10 mg Documented By: Admin: 10/25/24 09:57 Dose: 10 mg Documented By: Admin: 10/24/24 22:22 Dose: 10 mg Documented By: RUCHI Cariprazine (Cariprazine Hcl 1.5 Mg Cap) 1.5 mg PO DAILY [facility]GA Stop: 11/24/24 08:59 Last Admin: 10/27/24 08:28 Dose: 1.5 mg Documented By: Admin: 10/26/24 07:38 Dose: 1.5 mg Documented By: Admin: 10/25/24 10:02 Dose: 1.5 mg Documented By: Enoxaparin Sodium (Enoxaparin Inj 40 Mg/0.4 Ml Syr) 40 mg SQ Q24H [facility]GA Stop: 11/23/24 20:59 Last Admin: 10/26/24 20:59 Dose: 40 mg Documented By: Admin: 10/25/24 19:58 Dose: 40 mg Documented By: Admin: 10/24/24 22:11 Dose: 40 mg Documented By: RUCHI Folic Acid (Folic Acid 1 Mg Tab) 1 mg PO QAM MARGA Stop: 11/25/24 12:44 Last Admin: 10/27/24 08:29 Dose: 1 mg Documented By: Admin: 10/26/24 13:35 Dose: 1 mg Documented By: Gabapentin (Gabapentin 300 Mg Cap) 300 mg PO DAILY [facility]GA Stop: 11/24/24 08:59 Last Admin: 10/27/24 08:27 Dose: 300 mg Documented By: Admin: 10/26/24 07:39 Dose: 300 mg Documented By: Admin: 10/25/24 09:58 Dose: 300 mg Documented By: Hydroxyzine HCl (Hydroxyzine Hcl 25 Mg Tab) 100 mg PO HS PRN PRN Reason: Sleep Stop: 11/23/24 20:15 Last Admin: 10/26/24 20:59 Dose: 100 mg Documented By: Admin: 10/25/24 19:57 Dose: 100 mg Documented By: JANENE Thiamine HCl 100 mg/ Syringe 10 mls @ 2 mls/min IV QAM MARGA Stop: 11/25/24 12:44 Last Admin: 10/27/24 09:26 Dose: 2 mls/min Documented By: Admin: 10/26/24 13:33 Dose: 2 mls/min Documented By: Insulin Aspart (Insulin Aspart Per Unit Charge) 0 units SC ACHS MARGA Stop: 11/24/24 16:29 Last Admin: 10/27/24 12:17 Dose: 7 units Documented By: Co-signed By: NIKKY Admin: 10/27/24 08:22 Dose: 10 units Documented By: Co-signed By: NIKKY Admin: 10/26/24 21:00 Dose: 2 units Documented By: JANENE Co-signed By: FREDDY Admin: 10/26/24 17:13 Dose: 9 units Documented By: Co-signed By: ADAMS Admin: 10/26/24 12:46 Dose: 11 units Documented By: Co-signed By: NIKKY Admin: 10/26/24 08:48 Dose: 9 units Documented By: Co-signed By: BRYANT Admin: 10/25/24 20:19 Dose: 2 units Documented By: JANENE Co-signed By: ARTHUR Admin: 10/25/24 16:45 Dose: Not Given Documented By: Insulin Glargine (Lantus Per Unit Charge) 0 units SC HS [facility]; Protocol Stop: 11/25/24 20:59 Last Admin: 10/26/24 21:01 Dose: Not Given Documented By: JANENE Insulin Glargine (Lantus Per Unit Charge) 25 units SC DAILY [facility] Stop: 11/26/24 08:59 Last Admin: 10/27/24 08:22 Dose: 25 units Documented By: Co-signed By: NIKKY Lisinopril (Lisinopril 5 Mg Tab) 5 mg PO DAILY [facility] Stop: 11/24/24 08:59 Last Admin: 10/25/24 09:59 Dose: 5 mg Documented By: Multivitamins (Multivitamin Tab) [facility] [place]: 11/25/24 12:44 Last Admin: 10/27/24 08:29 Dose: 1 tab Documented By: Admin: 10/26/24 13:35 Dose: 1 tab Documented By: Naltrexone HCl (Naltrexone Hcl 50 Mg Tab) 50 mg PO DAILY [facility] Stop: 11/24/24 08:59 Last Admin: 10/27/24 08:29 Dose: 50 mg Documented By: Admin: 10/26/24 07:32 Dose: 50 mg Documented By: Admin: 10/25/24 09:59 Dose: 50 mg Documented By: Venlafaxine HCl (Venlafaxine Hcl Xr 37.5 Mg Capxr) 37.5 mg PO DAILY [facility] Stop: 11/24/24 08:59 Last Admin: 10/27/24 08:28 Dose: 37.5 mg Documented By: Admin: 10/26/24 07:39 Dose: 37.5 mg Documented By: Admin: 10/25/24 10:00 Dose: 37.5 mg Documented By: [place] [address] IN/OBS CONSULT LVL 5,80M Patient Type New History Expanded Problem Focused Exam Expanded Problem Focused Medical Decision Making Moderate Complexity Diagnoses Depression F32.A Cluster C personality disorder in adult F60.9 Alcohol use disorder, moderate, in sustained remission F10.21 Medication nonadherence due to psychosocial problem Z91.148; Z65.9
--- NOTE | 2024-10-27 18:07 | Hospitalist Progress Note ---
Date of Service October 27, 2024 Assessment & Plan (1) DKA (diabetic ketoacidosis): (2) Hyponatremia: (3) Acute dehydration: (4) Diabetes type 2: (5) HTN (hypertension): (6) Hyperlipidemia: (7) Bipolar 2 disorder: Plan 64 year old male with PMH significant for DMII, HTN, dyslipidemia, lumbar degenerative disc disease, bipolar 2, and history of alcohol dependence who presented to the ED with depression and anxiety and x10 days of N/V and was found to be in DKA. DKA, DMII, A1C 14.4% On admission Blood glucose 583 Compensated metabolic acidosis with pH 7.35 and bicarb 11 ABG obtained Received IVF on admission MIVF 1/2NS at 125mL/hr Order DKA protocol with q1hr blood sugar, q4hr VBG/BMP/mag/phos Now off IV insulin -> transitioned to subq insulin At home on metformin, currently on hold - pt did not take any meds for a while - reports he can't afford them Glycemic pharmacy consulted and discussed with Hyponatremia/ pseudohyponatremia secondary to hyperglycemia Sodium 117 due to DKA 1/2NS maintenance fluids Monitor sodium q4hr via BMP , now check daily Na improved Acute dehydration Due to vomiting and DKA Rehydration per DKA protocol CT abdomen pelvis -IMPRESSION: 1. A subtle pancreatic head hypodenisty could represnt edematous changes associated with subtle related fatty stranding as well as subcentimetric reactionary perpancreatic lymph nodes could raise the possibility of early inflammtory process , however for clinical and lab correlation as well as follow up as appropriate with CT/MR if clinically warranted. Duodenal diverticulum posterior to 2nd part of duodenum. 2. Right simple renal cyst (BOSNIAK 1). 3. 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 4. Recommend clinical correlation. Lipase 44 HTN On lisinopril at home - did not take in a while, currently on hold plan to resume on DC when BP improved, pt rehydrated Monitor BPs HLD On atorvastatin at home - pt did not take in a while Bipolar 2 On buspirone, cariprazine, desvenlafaxine - resumed on admission Patient with increasing depression and anxiety likely due to no meds in the last 30 days Psych consult placed for request to go to [facility] outpatient Discussed w/ psychiatry today (10/27) D/c cariprazine Start aripiprazole 5mg QD Increase venlafaxine ER to 75mg QD Continue buspirone and naltrexone F/u with outpatient psychiatry Case management intake No indication for inpatient psychiatry admission at this time No indication for bedside sitter History of alcohol dependence Sober x8-9 years per patient On naltrexone at home - resume per home dosing DVT Prophylaxis: SQ lovenox Code Status: FULL CODE - As per discussion at bedside with the patient. PCP: Manuel Narvaez Disposition: PCU Admission and Anticipated Discharge Date Admission Date: October 24, 2024 Subjective Pt seen in follow up of DKA received fluids on admission, IV insulin Pt reported depression and plan for admission to [facility] Hgb A1c 14.4% Currently lying in bed in NAD, overall feels improved. Denies chest pain, or shortness of breath. Denies abd. pain at this time. Reports no BM for several days. Denies dysuria, cough. Denies any fevers. Reports he is eating now, and feels well. However he is not getting up from bed. Denies any difficulty ambulating. Discussed w/ psychiatry - medication changes Review of Systems Review of Systems: All systems reviewed & are unremarkable except as noted in Subjective Physical Exam Physical Exam: General: WD/WN M in NAD Head: normocephalic, atraumatic Eyes: normal inspection, PERRL ENT: external ear and nose normal Neck: normal visual inspection Respiratory: normal respiratory effort, lungs clear to auscultation, no wheeze/rales/rhonchi, no accessory muscle use Cardiovascular: regular rate and rhythm, no murmur Extremities: no BLE edema, moves extremities Abdomen/GI: normal bowel sounds, soft, nontender Neurologic/MSK: A+Ox3, motor strength 5/5, moves all extremities Skin:warm and dry Results & Data Results & Data Vital Signs (Past 12 Hours) Vital Signs Temp Pulse Pulse Resp BP Pulse Ox O2 Del Method 10/27/24 15:28 36.7 C 70 18 123/68 95 Room Air 10/27/24 11:52 36.4 C L 79 17 104/67 93 Room Air 10/27/24 07:05 64 Laboratory Results 10/27/24 10/27/24 10/27/24 Range/Units 16:21 11:26 07:18 WBC (4.8-10.8) K/ul RBC (4.70-6.10) M/uL Hgb (14.0-18.0) g/dl Hct (42.0-52.0) % MCV (80.0-100.0) fL MCH (25.0-34.0) pg MCHC (32.0-36.0) g/dL RDW Std Deviation (36.4-46.3) fL RDW Coeff of Yenny (11.5-14.5) % Plt Count (130-400) K/uL MPV (9.4-12.4) fL Sodium (136-145) mmol/L Potassium (3.5-5.1) mmol/L Chloride (98-107) mmol/L Carbon Dioxide (21-32) mmol/L Anion Gap (3-11) BUN (6-23) mg/dl Creatinine (0.6-1.4) mg/dl Est Cr Clr Drug Dosing ml/min eGFR BUN/Creatinine Ratio (10-20) Glucose (70-99(Fasting)) mg/dl POC Glucose 107 H 165 H 162 H (70-99) mg/dl Calcium (8.6-10.3) mg/dl Phosphorus (2.5-4.9) mg/dl Magnesium (1.7-2.4) mg/dl 10/27/24 10/26/24 Range/Units 06:41 20:20 WBC 5.47 (4.8-10.8) K/ul RBC 3.87 L (4.70-6.10) M/uL Hgb 11.2 L (14.0-18.0) g/dl Hct 32.4 L (42.0-52.0) % MCV 83.7 (80.0-100.0) fL MCH 28.9 (25.0-34.0) pg MCHC 34.6 (32.0-36.0) g/dL RDW Std Deviation 39.9 (36.4-46.3) fL RDW Coeff of Yenny 13.1 (11.5-14.5) % Plt Count 164 (130-400) K/uL MPV 11.6 (9.4-12.4) fL Sodium 135 L (136-145) mmol/L Potassium 3.1 L (3.5-5.1) mmol/L Chloride 104 (98-107) mmol/L Carbon Dioxide 28 (21-32) mmol/L Anion Gap 3 (3-11) BUN 7 (6-23) mg/dl Creatinine 0.67 (0.6-1.4) mg/dl Est Cr Clr Drug Dosing 117.1 ml/min eGFR 103.62 BUN/Creatinine Ratio 10.4 (10-20) Glucose 158 H (70-99(Fasting)) mg/dl POC Glucose 178 H (70-99) mg/dl Calcium 8.3 L (8.6-10.3) mg/dl Phosphorus 2.9 (2.5-4.9) mg/dl Magnesium 1.7 (1.7-2.4) mg/dl Medications Administered Current Inpatient Medications Aripiprazole (Aripiprazole 5 Mg Tab) 5 mg PO QAM [facility] Stop: 11/27/24 08:59 Atorvastatin Calcium (Atorvastatin 20 Mg Tab) 20 mg PO DAILY [facility] Stop: 11/24/24 08:59 Last Admin: 10/27/24 08:28 Dose: 20 mg Buspirone HCl (Buspirone 5 Mg Tab) 10 mg PO BID [facility] Stop: 11/23/24 20:59 Last Admin: 10/27/24 08:27 Dose: 10 mg Dextrose (Dextrose 50% 50 Ml Syringe) 25 - 50 ml IV UD PRN; Protocol PRN Reason: Hypoglycemia Protocol Stop: 11/23/24 16:11 Enoxaparin Sodium (Enoxaparin Inj 40 Mg/0.4 Ml Syr) 40 mg SQ Q24H [facility] Stop: 11/23/24 20:59 Last Admin: 10/26/24 20:59 Dose: 40 mg Folic Acid (Folic Acid 1 Mg Tab) 1 mg PO QAM [facility] Stop: 11/25/24 12:44 Last Admin: 10/27/24 08:29 Dose: 1 mg Gabapentin (Gabapentin 300 Mg Cap) 300 mg PO DAILY [facility] Stop: 11/24/24 08:59 Last Admin: 10/27/24 08:27 Dose: 300 mg Glucagon (Glucagon For Inj 1 Mg Vial) 1 mg SQ UD PRN; Protocol PRN Reason: Hypoglycemia Protocol Stop: 11/23/24 16:11 Glucose (Glucose 40% Gel 15 Gm Tube) 15 - 30 gm PO UD PRN; Protocol PRN Reason: Hypoglycemia Protocol Stop: 11/23/24 16:11 Glucose (Glucose 10 Tab/Tube) 4 - 8 tab PO UD PRN; Protocol PRN Reason: Hypoglycemia Protocol Stop: 11/23/24 16:11 Hydroxyzine HCl (Hydroxyzine Hcl 25 Mg Tab) 100 mg PO HS PRN PRN Reason: Sleep Stop: 11/23/24 20:15 Last Admin: 10/26/24 20:59 Dose: 100 mg Thiamine HCl 100 mg/ Syringe 10 mls @ 2 mls/min IV QAM MARGA Stop: 11/25/24 12:44 Last Admin: 10/27/24 09:26 Dose: 2 mls/min Insulin Aspart (Insulin Aspart Per Unit Charge) 0 units SC ACHS [facility] Stop: 11/24/24 16:29 Last Admin: 10/27/24 16:57 Dose: 8 units Insulin Glargine (Lantus Per Unit Charge) 0 units SC HS [facility]; Protocol Stop: 11/25/24 20:59 Last Admin: 10/26/24 21:01 Dose: Not Given Insulin Glargine (Lantus Per Unit Charge) 25 units SC DAILY [facility] Stop: 11/26/24 08:59 Last Admin: 10/27/24 08:22 Dose: 25 units Lisinopril (Lisinopril 5 Mg Tab) 5 mg PO DAILY [facility] Stop: 11/24/24 08:59 Last Admin: 10/25/24 09:59 Dose: 5 mg Miscellaneous (Carbohydrates For Hypoglycemia ) 15 - 30 gm PO UD PRN PRN Reason: Hypoglycemia Protocol Stop: 11/23/24 16:11 Miscellaneous Information (Pharmacy Glycemic Mgmt Consult) 1 each N/A UD PRN PRN Reason: Consult Stop: 11/23/24 20:15 Multivitamins (Multivitamin Tab) 1 tab PO QAM [facility] Stop: 11/25/24 12:44 Last Admin: 10/27/24 08:29 Dose: 1 tab Naltrexone HCl (Naltrexone Hcl 50 Mg Tab) 50 mg PO DAILY [facility] Stop: 11/24/24 08:59 Last Admin: 10/27/24 08:29 Dose: 50 mg Ondansetron HCl (Ondansetron Inj 2 Mg/Ml 2 Ml Vial) 4 mg IV Q6H PRN PRN Reason: Nausea Stop: 11/23/24 21:44 Venlafaxine HCl (Venlafaxine Hcl Xr 75 Mg Capxr) 75 mg PO DAILY [facility] Stop: 11/27/24 08:59 (5) HTN (hypertension) Hypertension type: unspecified Qualified Code(s): I10 - Essential (primary) hypertension
[2024-10-28 06:51] LABS: Hematocrit (blood only) 32.2 % (42.0-52.0); Hemoglobin 11.1 g/dl (14.0-18.0); Mean Corpuscular Hemoglobin 29.1 pg (25.0-34.0); Mean Corpuscular Hgb Conc 34.5 g/dL (32.0-36.0); Mean Corpuscular Volume 84.3 fL (80.0-100.0); Platelet Count 193 K/uL (130-400); RDW Coefficient of Variation 13.2 % (11.5-14.5); RDW Standard Deviation 40.6 fL (36.4-46.3); Red Blood Count 3.82 M/uL (4.70-6.10); White Blood Count 6.49 K/ul (4.8-10.8)
[2024-10-28 07:12] LABS: BUN Creatinine Ratio 10.3 (10-20); Calcium 8.3 mg/dl (8.6-10.3); Creatinine Clr Calc Pharmacy 100.6 ml/min; Magnesium 1.7 mg/dl (1.7-2.4); Phosphorus 3.6 mg/dl (2.5-4.9); Potassium 3.2 mmol/L (3.5-5.1)
[2024-10-28] MEDS: VENLAFAXINE HCL XR 75 MG CAPXR PO SCH (08:16)
[2024-10-28] MEDS: ARIPiprazole 5 MG TAB PO SCH (08:18)
--- NOTE | 2024-10-28 10:15 | Pharmacy Report ---
Pharmacy Glycemic Short Note 2 - Date of Service October 28, 2024 - Glycemic Short BSG Results (Last 24 hours): 10/27/24 10/27/24 10/27/24 11:26 16:21 19:32 Glucose POC Glucose 165 H 107 H 193 H 10/28/24 10/28/24 05:46 07:19 Glucose 115 H POC Glucose 121 H OUTPATIENT ANTIDIABETIC REGIMEN: * metformin 1000mg po bid HbA1c: 14.4% on 10/24/24 ASSESSMENT: 10/28: * Darell received 70 units of insulin yesterday (35 were basal) * Fasting BSG this AM within goal range, will continue current basal regimen allowing for dose reduction if BSGs within goal range * No changes to NovoLog at this time, no glycemic stressors noted. 10/25: * 64 year old male admitted last evening for nausea and vomiting which had been on going for the past week. Pharmacy has been consulted for glycemic managem ent while he is admitted. * Labs on admit showed AG of 23, CO2 of 11, Blood glucose of 583, pH of 7.34. DKA protocol was ordered and an insulin drip was initiated last evening. * BSGs improved quickly overnight and fluids were changed to d5 1/2nss + 20 kcl once BSG in goal range. (K+ was low this morning, but replaced). The AG did not close and C02 did not normalize this morning. With the 1215 check, the gap closed x 2, CO2 normalized and BSG was 173 so it was decided to start transitioning the patient off of the insulin drip. * Lantus 15 units SQ x 1 was ordered and RN instructed to overlap with the drip for at least 2 more hours. * A weight based bolus insulin regimen with a stress of 2 will be initiated at dinner time tonight if the drip is able to be shut off. PLAN FOR INPATIENT GLYCEMIC CONTROL: * Hold outpatient oral diabetes medications * Basal insulin * Lantus 25 units SQ daily * Lantus 0-10 units SQ HS, give 10 units if BSG is greater than 180mg/dL * Bolus insulin * NovoLog per scale ACHS or Q6hrs while NPO * Goal Range: Low 120 mg/dL - High 150 mg/dL * Correction Factor: 20 mg/dL/unit * Nutritional / Prandial insulin per carb ratio of 1 unit per 7 grams CHO consumed
[2024-10-28] MEDS: SODIUM CHLORIDE 0.9% 1,000 ML IV ONE (13:44)
[2024-10-28] MEDS: POTASSIUM CHLORIDE CRTAB 20 MEQ TABCR PO STA (13:44)
--- NOTE | 2024-10-28 18:19 | Hospitalist Progress Note ---
Date of Service October 28, 2024 Assessment & Plan (1) DKA (diabetic ketoacidosis): (2) Hyponatremia: (3) Acute dehydration: (4) Diabetes type 2: (5) HTN (hypertension): (6) Hyperlipidemia: (7) Bipolar 2 disorder: Plan 64 year old male with PMH significant for DMII, HTN, dyslipidemia, lumbar degenerative disc disease, bipolar 2, and history of alcohol dependence who presented to the ED with depression and anxiety and x10 days of N/V and was found to be in DKA. DKA, DMII, A1C 14.4% On admission Blood glucose 583 Compensated metabolic acidosis with pH 7.35 and bicarb 11 ABG obtained Received IVF on admission MIVF 1/2NS at 125mL/hr Order DKA protocol with q1hr blood sugar, q4hr VBG/BMP/mag/phos Now off IV insulin -> transitioned to subq insulin At home on metformin, currently on hold - pt did not take any meds for a while - reports he can't afford them Glycemic pharmacy consulted and discussed with Hyponatremia/ pseudohyponatremia secondary to hyperglycemia Sodium 117 due to DKA 1/2NS maintenance fluids Monitor sodium q4hr via BMP , now check daily Na improved Acute dehydration Due to vomiting and DKA Rehydration per DKA protocol CT abdomen pelvis -IMPRESSION: 1. A subtle pancreatic head hypodenisty could represnt edematous changes associated with subtle related fatty stranding as well as subcentimetric reactionary perpancreatic lymph nodes could raise the possibility of early inflammtory process , however for clinical and lab correlation as well as follow up as appropriate with CT/MR if clinically warranted. Duodenal diverticulum posterior to 2nd part of duodenum. 2. Right simple renal cyst (BOSNIAK 1). 3. 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 4. Recommend clinical correlation. Lipase 44 Pt currently denies any abdominal pain and reports eating well now. HTN On lisinopril at home - did not take in a while, currently on hold plan to resume on DC when BP improved, pt rehydrated Monitor BPs HLD On atorvastatin at home - pt did not take in a while Bipolar 2 On buspirone, cariprazine, desvenlafaxine - resumed on admission Patient with increasing depression and anxiety likely due to no meds in the last 30 days Psych consult placed for request to go to [facility] outpatient Discussed w/ psychiatry today (10/27) D/c cariprazine Start aripiprazole 5mg QD Increase venlafaxine ER to 75mg QD Continue buspirone and naltrexone F/u with outpatient psychiatry Case management intake No indication for inpatient psychiatry admission at this time No indication for bedside sitter History of alcohol dependence Sober x8-9 years per patient On naltrexone at home - resume per home dosing DVT Prophylaxis: SQ lovenox Code Status: FULL CODE PCP: Manuel Narvaez Disposition: PCU -> med / tele Admission and Anticipated Discharge Date Admission Date: October 24, 2024 Subjective Pt seen in follow up of DKA Pt reported depression and plan for admission to [facility] Hgb A1c 14.4% Currently lying in bed in NAD, overall feels improved. Denies chest pain, or shortness of breath. Denies abd. pain at this time. Reports having BM today after several days. Denies dysuria, cough. Denies any fevers. Reports he is eating now, and feels well. However he is not getting up from bed. Denies any difficulty ambulating. Discussed w/ psychiatry - medication changes BP low again today - will give IVF Review of Systems Review of Systems: All systems reviewed & are unremarkable except as noted in Subjective Physical Exam Physical Exam: General: WD/WN M in NAD Head: normocephalic, atraumatic Eyes: normal inspection, PERRL ENT: external ear and nose normal Neck: normal visual inspection Respiratory: normal respiratory effort, lungs clear to auscultation, no wheeze/rales/rhonchi, no accessory muscle use Cardiovascular: regular rate and rhythm, no murmur Extremities: no BLE edema, moves extremities Abdomen/GI: normal bowel sounds, soft, nontender Neurologic/MSK: A+Ox3, motor strength 5/5, moves all extremities Skin:warm and dry Results & Data Results & Data Vital Signs (Past 12 Hours) Vital Signs Temp Pulse Pulse Resp BP Pulse Ox O2 Del Method 10/28/24 15:01 36.7 C 66 18 110/69 95 Room Air 10/28/24 14:17 82 10/28/24 11:30 36.7 C 71 18 91/57 L 97 Room Air 10/28/24 08:05 36.2 C L 97 H 18 106/81 96 Room Air 10/28/24 07:27 92 H 10/28/24 07:25 71 Laboratory Results 10/28/24 10/28/24 10/28/24 Range/Units 16:11 11:27 07:19 WBC (4.8-10.8) K/ul RBC (4.70-6.10) M/uL Hgb (14.0-18.0) g/dl Hct (42.0-52.0) % MCV (80.0-100.0) fL MCH (25.0-34.0) pg MCHC (32.0-36.0) g/dL RDW Std Deviation (36.4-46.3) fL RDW Coeff of Yenny (11.5-14.5) % Plt Count (130-400) K/uL MPV (9.4-12.4) fL Sodium (136-145) mmol/L Potassium (3.5-5.1) mmol/L Chloride (98-107) mmol/L Carbon Dioxide (21-32) mmol/L Anion Gap (3-11) BUN (6-23) mg/dl Creatinine (0.6-1.4) mg/dl Est Cr Clr Drug Dosing ml/min eGFR BUN/Creatinine Ratio (10-20) Glucose (70-99(Fasting)) mg/dl POC Glucose 92 133 H 121 H (70-99) mg/dl Calcium (8.6-10.3) mg/dl Phosphorus (2.5-4.9) mg/dl Magnesium (1.7-2.4) mg/dl 10/28/24 10/27/24 Range/Units 05:46 19:32 WBC 6.49 (4.8-10.8) K/ul RBC 3.82 L (4.70-6.10) M/uL Hgb 11.1 L (14.0-18.0) g/dl Hct 32.2 L (42.0-52.0) % MCV 84.3 (80.0-100.0) fL MCH 29.1 (25.0-34.0) pg MCHC 34.5 (32.0-36.0) g/dL RDW Std Deviation 40.6 (36.4-46.3) fL RDW Coeff of Yenny 13.2 (11.5-14.5) % Plt Count 193 (130-400) K/uL MPV 12.0 (9.4-12.4) fL Sodium 137 (136-145) mmol/L Potassium 3.2 L (3.5-5.1) mmol/L Chloride 103 (98-107) mmol/L Carbon Dioxide 29 (21-32) mmol/L Anion Gap 5 (3-11) BUN 8 (6-23) mg/dl Creatinine 0.78 (0.6-1.4) mg/dl Est Cr Clr Drug Dosing 100.6 ml/min eGFR 98.97 BUN/Creatinine Ratio 10.3 (10-20) Glucose 115 H (70-99(Fasting)) mg/dl POC Glucose 193 H (70-99) mg/dl Calcium 8.3 L (8.6-10.3) mg/dl Phosphorus 3.6 (2.5-4.9) mg/dl Magnesium 1.7 (1.7-2.4) mg/dl Medications Administered Current Inpatient Medications Aripiprazole (Aripiprazole 5 Mg Tab) 5 mg PO QAM MARGA Stop: 11/27/24 08:59 Last Admin: 10/28/24 08:18 Dose: 5 mg Atorvastatin Calcium (Atorvastatin 20 Mg Tab) 20 mg PO DAILY MARGA Stop: 11/24/24 08:59 Last Admin: 10/28/24 08:19 Dose: 20 mg Buspirone HCl (Buspirone 5 Mg Tab) 10 mg PO BID MARGA Stop: 11/23/24 20:59 Last Admin: 10/28/24 08:17 Dose: 10 mg Dextrose (Dextrose 50% 50 Ml Syringe) 25 - 50 ml IV UD PRN; Protocol PRN Reason: Hypoglycemia Protocol Stop: 11/23/24 16:11 Enoxaparin Sodium (Enoxaparin Inj 40 Mg/0.4 Ml Syr) 40 mg SQ Q24H MARGA Stop: 11/23/24 20:59 Last Admin: 10/27/24 20:01 Dose: 40 mg Folic Acid (Folic Acid 1 Mg Tab) 1 mg PO QAM MARGA Stop: 11/25/24 12:44 Last Admin: 10/28/24 08:19 Dose: 1 mg Gabapentin (Gabapentin 300 Mg Cap) 300 mg PO DAILY MARGA Stop: 11/24/24 08:59 Last Admin: 10/28/24 08:19 Dose: 300 mg Glucagon (Glucagon For Inj 1 Mg Vial) 1 mg SQ UD PRN; Protocol PRN Reason: Hypoglycemia Protocol Stop: 11/23/24 16:11 Glucose (Glucose 40% Gel 15 Gm Tube) 15 - 30 gm PO UD PRN; Protocol PRN Reason: Hypoglycemia Protocol Stop: 11/23/24 16:11 Glucose (Glucose 10 Tab/Tube) 4 - 8 tab PO UD PRN; Protocol PRN Reason: Hypoglycemia Protocol Stop: 11/23/24 16:11 Hydroxyzine HCl (Hydroxyzine Hcl 25 Mg Tab) 100 mg PO HS PRN PRN Reason: Sleep Stop: 11/23/24 20:15 Last Admin: 10/28/24 08:17 Dose: 100 mg Sodium Chloride (Nss) 1,000 mls @ 125 mls/hr IV .Q8H ONE Stop: 10/28/24 21:28 Last Admin: 10/28/24 13:44 Dose: 125 mls/hr Insulin Aspart (Insulin Aspart Per Unit Charge) 0 units SC [facility] Stop: 11/24/24 16:29 Last Admin: 10/28/24 16:53 Dose: 9 units Insulin Glargine (Lantus Per Unit Charge) 0 units SC [facility]; Protocol Stop: 11/25/24 20:59 Last Admin: 10/27/24 20:10 Dose: 10 units Insulin Glargine (Lantus Per Unit Charge) 25 units SC DAILY [facility] Stop: 11/26/24 08:59 Last Admin: 10/28/24 08:23 Dose: 25 units Lisinopril (Lisinopril 5 Mg Tab) 5 mg PO DAILY [facility] Stop: 11/24/24 08:59 Last Admin: 10/25/24 09:59 Dose: 5 mg Miscellaneous (Carbohydrates For Hypoglycemia ) 15 - 30 gm PO UD PRN PRN Reason: Hypoglycemia Protocol Stop: 11/23/24 16:11 Miscellaneous Information (Pharmacy Glycemic Mgmt Consult) 1 each N/A UD PRN PRN Reason: Consult Stop: 11/23/24 20:15 Multivitamins (Multivitamin Tab) 1 tab PO QAM [facility] Stop: 11/25/24 12:44 Last Admin: 10/28/24 08:19 Dose: 1 tab Naltrexone HCl (Naltrexone Hcl 50 Mg Tab) 50 mg PO DAILY MARGA Stop: 11/24/24 08:59 Last Admin: 10/28/24 08:20 Dose: 50 mg Ondansetron HCl (Ondansetron Inj 2 Mg/Ml 2 Ml Vial) 4 mg IV Q6H PRN PRN Reason: Nausea Stop: 11/23/24 21:44 Thiamine HCl (Thiamine Hcl 100 Mg Tab) 100 mg PO DAILY [facility] Stop: 11/28/24 08:59 Venlafaxine HCl (Venlafaxine Hcl Xr 75 Mg Capxr) 75 mg PO DAILY [facility] Stop: 11/27/24 08:59 Last Admin: 10/28/24 08:16 Dose: 75 mg (5) HTN (hypertension) Hypertension type: unspecified Qualified Code(s): I10 - Essential (primary) hypertension
[2024-10-29 06:39] LABS: Hematocrit (blood only) 33.3 % (42.0-52.0); Hemoglobin 11.3 g/dl (14.0-18.0); Mean Corpuscular Hemoglobin 29.2 pg (25.0-34.0); Mean Corpuscular Hgb Conc 33.9 g/dL (32.0-36.0); Mean Platelet Volume 11.8 fL (9.4-12.4); Platelet Count 214 K/uL (130-400); RDW Coefficient of Variation 13.5 % (11.5-14.5); RDW Standard Deviation 41.4 fL (36.4-46.3); Red Blood Count 3.87 M/uL (4.70-6.10); White Blood Count 6.66 K/ul (4.8-10.8)
[2024-10-29 07:01] LABS: BUN Creatinine Ratio 10.5 (10-20); Calcium 8.6 mg/dl (8.6-10.3); Magnesium 1.6 mg/dl (1.7-2.4); Phosphorus 3.9 mg/dl (2.5-4.9); Potassium 3.8 mmol/L (3.5-5.1)
[2024-10-29] MEDS: THIAMINE HCL 100 MG TAB PO SCH (08:38)
[2024-10-29] MEDS: MAGNESIUM OXIDE 400 MG TAB PO SCH (08:38)
--- NOTE | 2024-10-29 15:55 | Hospitalist Progress Note ---
Date of Service October 29, 2024 Assessment & Plan (1) DKA (diabetic ketoacidosis): (2) Bipolar 2 disorder: (3) Diabetes type 2: (4) HTN (hypertension): (5) Hypokalemia: (6) Cluster C personality disorder in adult: (7) Medication nonadherence due to psychosocial problem: (8) Hyponatremia: Plan Patient presented with DKA due to nonadherence to his medical regimen due to his unstable mental health disorder DKA is resolved, electrolytes have stabilized, replete magnesium additionally today Patient reports that his plans were to hopefully go to the [facility] to continue to care for his mental health. Communication with case management today, [facility] will not be excepting him back to their facility. Reviewed psych liaison notes, appears as though there is no indication for in- hospital behavioral health unit recommending outpatient counseling. Changes in mental health medications noted from psych consultation Patient is new to insulin. Has not received much training as of yet, now that patient will be discharged home will consult nutrition educator for some ongoing education [facility] to [facility] Anticipate will be discharged home when outpatient care coordinated within the next 24 hours or so. Admission and Anticipated Discharge Date Admission Date: October 24, 2024 Subjective Patient is feeling well. No acute issues overnight. Has never done insulin before. Has delirium a little bit of teaching so far Physical Exam Physical Exam: Constitutional: Alert HEENT: Mucous membranes moist. Lungs: Clear to auscultation, decreased, no wheezes rales or rhonchi CV: S1-S2, regular Abdomen: Soft, nontender, nondistended Extremities: No significant edema Neuro: No focal deficits Psych: Cooperative, flat affect Results & Data Results & Data Vital Signs (Past 12 Hours) Vital Signs Temp Pulse Pulse Resp BP Pulse Ox O2 Del Method 10/29/24 15:40 36.7 C 69 20 123/81 95 Room Air 10/29/24 14:02 70 10/29/24 11:35 36.8 C 75 18 114/79 95 Room Air 10/29/24 08:04 62 10/29/24 07:44 36.5 C 64 20 109/72 94 Room Air Diagnostic Findings Reviewed imaging, laboratory and diagnostic studies. Pertinent findings as below. Hemoglobin 11.3 Electrolytes within normal range Creatinine 0.76 Glucose reviewed Magnesium 1.6 (4) HTN (hypertension) Hypertension type: unspecified Qualified Code(s): I10 - Essential (primary) hypertension
--- NOTE | 2024-10-30 09:33 | Pharmacy Report ---
Pharmacy Glycemic Short Note 2 - Date of Service October 30, 2024 - Glycemic Short BSG Results (Last 24 hours): 10/29/24 10/29/24 10/29/24 11:07 16:11 19:57 POC Glucose 244 H 109 H 131 H 10/30/24 07:41 POC Glucose 111 H OUTPATIENT ANTIDIABETIC REGIMEN: * metformin 1000mg po bid HbA1c: 14.4% on 10/24/24 ASSESSMENT: 10/30/24: * Blood sugars remain well-controlled, except for lunchtime blood sugar yesterday of 244 mg/dL, which does not appear to be a trend * Do not anticipate any changes to glycemic regimen today, but will tighten AM Novolog tomorrow AM 10/28: * Darell received 70 units of insulin yesterday (35 were basal) * Fasting BSG this AM within goal range, will continue current basal regimen allowing for dose reduction if BSGs within goal range * No changes to NovoLog at this time, no glycemic stressors noted. 10/25: * 64 year old male admitted last evening for nausea and vomiting which had been on going for the past week. Pharmacy has been consulted for glycemic management while he is admitted. * Labs on admit showed AG of 23, CO2 of 11, Blood glucose of 583, pH of 7.34. DKA protocol was ordered and an insulin drip was initiated last evening. * BSGs improved quickly overnight and fluids were changed to d5 1/2nss + 20 kcl once BSG in goal range. (K+ was low this morning, but replaced). The AG did not close and C02 did not normalize this morning. With the 1215 check, the gap closed x 2, CO2 normalized and BSG was 173 so it was decided to start transitioning the patient off of the insulin drip. * Lantus 15 units SQ x 1 was ordered and RN instructed to overlap with the drip for at least 2 more hours. * A weight based bolus insulin regimen with a stress of 2 will be initiated at dinner time tonight if the drip is able to be shut off. PLAN FOR INPATIENT GLYCEMIC CONTROL: * Hold outpatient oral diabetes medications * Basal insulin * Lantus 25 units SQ daily * Bolus insulin * NovoLog per scale ACHS or Q6hrs while NPO * Goal Range: Low 110 mg/dL - High 150 mg/dL * Correction Factor: 20 mg/dL/unit * Nutritional / Prandial insulin per carb ratio of 1 unit per 5 grams CHO consumed with breakfast and 7 grams CHO consumed with lunch, dinner, and HS
[2024-10-30 09:56] LABS: BUN Creatinine Ratio 9.5 (10-20); Calcium 8.5 mg/dl (8.6-10.3); Creatinine Clr Calc Pharmacy 135.1 ml/min; Magnesium 1.6 mg/dl (1.7-2.4); Potassium 3.9 mmol/L (3.5-5.1)
--- NOTE | 2024-10-30 14:16 | Hospitalist Progress Note ---
Date of Service October 30, 2024 Assessment & Plan (1) DKA (diabetic ketoacidosis): (2) Bipolar 2 disorder: (3) Diabetes type 2: (4) HTN (hypertension): (5) Hypokalemia: (6) Cluster C personality disorder in adult: (7) Medication nonadherence due to psychosocial problem: (8) Hyponatremia: Plan Patient with uncontrolled diabetes, DKA has now resolved. Patient new to insulin. Continue with diabetes teaching, patient to give himself injections. Communication with agricultural extension educator. Will attempt to try and get him manufacture sponsored free insulin. Forms being completed. If we can get his insulin covered plan will be to use Lantus and metformin to manage his diabetes. Continue to replace magnesium orally, additional magnesium IV today Continue other medications Reviewed psych liaison note. Helping to coordinate outpatient follow-up through [facility] health services. Anticipate discharge home when confirmed patient able to get medications to take at home. Admission and Anticipated Discharge Date Admission Date: October 24, 2024 Subjective No acute issues overnight. Understands that he will not be admitted to the [facility] Physical Exam Physical Exam: Constitutional: Alert HEENT: Mucous membranes moist. Lungs: Clear to auscultation, decreased, no wheezes rales or rhonchi CV: S1-S2, regular Abdomen: Soft, nontender, nondistended Extremities: No significant edema Neuro: No focal deficits Psych: Cooperative, normal mood Results & Data Results & Data Vital Signs (Past 12 Hours) Vital Signs Temp Pulse Resp BP Pulse Ox O2 Del Method 10/30/24 11:40 36.7 C 78 17 120/68 94 Room Air 10/30/24 09:52 Room Air 10/30/24 07:43 36.6 C 68 16 122/78 95 Room Air Diagnostic Findings Reviewed imaging, laboratory and diagnostic studies. Pertinent findings as below. Creatinine 0.63 Magnesium 1.6 Glucose was reviewed, labile, mostly elevated at lunchtime otherwise controlled (4) HTN (hypertension) Hypertension type: unspecified Qualified Code(s): I10 - Essential (primary) hypertension
[2024-10-30] MEDS: MAGNESIUM SULFATE / D5W 1 GM/100 ML BAG IV SCH (15:04)
[2024-10-30] MEDS: INSULIN ASPART PER UNIT CHARGE SC SCH (17:24)
[2024-10-31] MEDS: LANTUS PER UNIT CHARGE SC SCH (08:27)
[2024-10-31] MEDS: INSULIN ASPART PER UNIT CHARGE SC SCH (08:27)
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
--- NOTE | 2024-11-01 11:07 | Pharmacy Report ---
Pharmacy Glycemic Short Note 2 - Date of Service November 01, 2024 - Glycemic Short BSG Results (Last 24 hours): 10/31/24 10/31/24 10/31/24 11:45 16:35 20:28 POC Glucose 212 H 135 H 92 11/01/24 07:38 POC Glucose 107 H OUTPATIENT ANTIDIABETIC REGIMEN: * metformin 1000mg po bid HbA1c: 14.4% on 10/24/24 ASSESSMENT: 11/01/24: * BSGs remain well-controlled. Lunchtime BSG continues to be elevated, so Novol og parameters were adjusted this morning to provide additional carb coverage with breakfast. * Lantus dose was reduced slightly yesterday morning. Fasting BSG appropriate this morning. * No other changes at this time. 10/30/24: * Blood sugars remain well-controlled, except for lunchtime blood sugar yesterday of 244 mg/dL, which does not appear to be a trend * Do not anticipate any changes to glycemic regimen today, but will tighten AM Novolog tomorrow AM 10/28: * Darlel received 70 units of insulin yesterday (35 were basal) * Fasting BSG this AM within goal range, will continue current basal regimen allowing for dose reduction if BSGs within goal range * No changes to NovoLog at this time, no glycemic stressors noted. 10/25: * 64 year old male admitted last evening for nausea and vomiting which had been on going for the past week. Pharmacy has been consulted for glycemic management while he is admitted. * Labs on admit showed AG of 23, CO2 of 11, Blood glucose of 583, pH of 7.34. DKA protocol was ordered and an insulin drip was initiated last evening. * BSGs improved quickly overnight and fluids were changed to d5 1/2nss + 20 kcl once BSG in goal range. (K+ was low this morning, but replaced). The AG did not close and C02 did not normalize this morning. With the 1215 check, the gap closed x 2, CO2 normalized and BSG was 173 so it was decided to start transitioning the patient off of the insulin drip. * Lantus 15 units SQ x 1 was ordered and RN instructed to overlap with the drip for at least 2 more hours. * A weight based bolus insulin regimen with a stress of 2 will be initiated at dinner time tonight if the drip is able to be shut off. PLAN FOR INPATIENT GLYCEMIC CONTROL: * Hold outpatient oral diabetes medications * Basal insulin * Lantus 20 units SQ daily * Bolus insulin * NovoLog per scale ACHS or Q6hrs while NPO * Goal Range: Low 110 mg/dL - High 150 mg/dL * Correction Factor: 20 mg/dL/unit with breakfast, 25 mg/dL/unit with lunch/dinner/HS * Nutritional / Prandial insulin per carb ratio of 1 unit per 4 grams CHO consumed with breakfast and 8 grams CHO consumed with lunch, dinner, and HS
--- NOTE | 2024-11-01 13:13 | Discharge Summary ---
Discharge Summary Date of Service November 01, 2024 Principal Dx & Hospital Course #1 = Principal Diagnosis (1) DKA (diabetic ketoacidosis): (2) Bipolar 2 disorder: (3) Diabetes type 2: (4) HTN (hypertension): (5) Hypokalemia: (6) Cluster C personality disorder in adult: (7) Medication nonadherence due to psychosocial problem: (8) Hyponatremia: Plan Patient is a 64-year-old gentleman who initially presented to the [facility] to address some of his mental health issues but was also having some medical issues and he was sent to the emergency room. In the emergency room he was found to be in DKA. Patient was admitted to the hospital and his DKA was aggressively managed with fluids and insulin. His DKA resolved and he was transition to subcutaneous insulin. Diabetes education and educator was commenced and consulted. Patient was also seen by psychiatry and behavioral health liaison. He was evaluated and deemed not to be a candidate for inpatient behavioral health unit. The patient had hoped to return to the [facility]. They were contacted and they deemed that he was no longer a candidate for their facility as well. Case management was subsequently involved in the patient's care since it was determined that the patient would be returning home. Unfortunately, the patient's girlfriend was no longer going to be living with him or assisting with him. Patient's insulin was titrated. We determine the best plan for his diabetes management at home. His mental health medications were also adjusted and started on Abilify. Patient was tolerating these adjustments his medications. He was starting to learn how to take his own sugars and give himself insulin. Case management learned that the patient did not have a phone, did not have any transportation and had limited financial means. We assisted with helping him apply for pace. We have coordinated pharmacy to deliver his medications to his home. We coordinated home health care. Through behavioral health we also coordinated mental health counselor to be checking on him regularly. Also made referral to the office of aging and set up Meals on Wheels so he can get some 6 regular meals delivered to him. We also gave him a coupon for his Tresiba to get a 1 months free. We also filled out forms to send to the communications consultant for him to get Lantus insulin for free. On the day of discharge his vital signs are stable. Glucose was much better controlled. He expressed good knowledge of his ability to care for himself. He is knows that these people will be coming into see him and knows to have them come and invite them into his home so they can care for him. Home health will be coming out the day after admission on Monday be at [facility] will be coming to the house on Monday. Patient's sister was updated as to all the services that have been arranged for him she was happy with the efforts that we have made and understand that this is maximizing everything we can do for him. And he will follow-up with his outpatient providers as coordinated. Notes For Next Care Provider Patient will need ongoing management of his diabetes with potential further adjustments of his medications. Follow hemoglobin A1c Continue with outpatient mental health care May need to transition to Lantus after 1 month if the manufacture will pay for the Lantus. Application has been sent Medication Changes From Visit Tresiba started for diabetes management, 24 units Abilify started and replace the Vraylar which was discontinued Metformin started Admission HPI Per Admitting Provider 64 year old male with PMH significant for DMII, HTN, dyslipidemia, lumbar degenerative disc disease, bipolar 2, and history of alcohol dependence who presented to the ED with depression and anxiety and x10 days of N/V. Patient reports that he has not taken any of his prescription medications in the last month because he ran out and cannot afford refills. He is having increasing depression and anxiety and would like to go to the [facility]. Denies suicidal ideation. He also reports x10 days of nausea and vomiting where he vomited x7days with last episode 3 days ago. He has poor PO intake because he cannot keep anything down. He has generalized abdominal pain but denies fevers, chills, cough, cold symptoms, diarrhea, hematemesis. Denies recent sick contacts. He does not check his blood sugar at home. Admission Exam Per Admitting Provider See H&P Discharge Exam Constitutional: Alert HEENT: Mucous membranes moist. Lungs: Clear to auscultation, decreased, no wheezes rales or rhonchi CV: S1-S2, regular Abdomen: Soft, nontender, nondistended Extremities: No significant edema Neuro: No focal deficits Psych: Cooperative, normal mood Updated Medication List Medication Instructions Recorded Confirmed Type acetaminophen 325 mg tablet 650 mg PO TID PRN Pain 12/04/19 10/24/24 History (Tylenol) cariprazine 1.5 mg capsule 1.5 mg PO DAILY 10/24/24 10/24/24 History (Vraylar) metformin 500 mg tablet,extended 1,000 mg PO BID 10/24/24 10/24/24 History release 24 hr aripiprazole 5 mg tablet (Abilify) 5 mg PO QAM #30 tabs 10/31/24 Rx atorvastatin 20 mg tablet 20 mg PO DAILY #30 tabs 10/31/24 Rx blood sugar diagnostic (OneTouch #100 ea 10/31/24 Rx Verio test strips) buspirone 10 mg tablet 10 mg PO BID #60 tabs 10/31/24 Rx desvenlafaxine succinate 100 mg 100 mg PO DAILY #30 tabs 10/31/24 Rx tablet,extended release 24 hr (Pristiq) gabapentin 300 mg capsule 300 mg PO DAILY #30 caps 10/31/24 Rx (Neurontin) hydroxyzine HCl 50 mg tablet 100 mg (2 x 50 mg) PO HS PRN Sleep 10/31/24 Rx #30 tabs insulin degludec 100 unit/mL (3 24 unit (0.24 mL) subcut DAILY #15 10/31/24 Rx mL) subcutaneous pen (Tresiba mL FlexTouch U-100 insulin) lancets 33 gauge ([employer] Delica #100 ea 10/31/24 Rx Plus Lancet) lisinopril 5 mg tablet 5 mg PO DAILY #30 tabs 10/31/24 Rx metformin 750 mg tablet,extended 750 mg PO DAILY #30 tabs 10/31/24 Rx release 24 hr naltrexone 50 mg tablet 50 mg PO DAILY #30 tabs 10/31/24 Rx Hospital Stay Data Consultations 10/24/24 16:25 ED Decision to Admit Stat 10/24/24 20:16 Consult Psychiatry Routine 10/25/24 08:00 Consult Cardiology Routine Diagnostic Imagining Performed 10/24/24 15:17 CT abd pelvis IV con only Stat Reviewed imaging, laboratory and diagnostic studies. Pertinent findings as below. WBC 6.6 Hemoglobin 11.3 Platelets of 214 Electrolytes within normal range Creatinine 0.63 Hemoglobin A1c 14.4% TSH 2.47 Urinalysis negative for signs of infection Urine drug screen negative CT of the abdomen pelvis showed some inflammation in pancreatic head most likely edema. Also showed L5-S1 spondylolisthesis. Pending Results Patient Have Any Pending Studies at Discharge: No Discharge Instructions Given to Patient (Per Discharging Provider) Continue to work with health care Continue to work with your home mental health counselor Follow-up with your PCP closely for ongoing manage medical issues Home Health Attestation I certify that this patient is under my care and that I, or a physicians assistant banquet manager working with me, had a face to-face encounter that meets the home health [id number] encounter requirements with this patient. The encounter with the patient was in whole, or in part, for the following med ical condition, which is the primary reason for home health care (list medical condition): I certify that, based on my findings, the following services are medically necessary home health services: My clinical findings support the need for the above services because: Further, I certify that my clinical findings support that this patient is homebound (i.e. absences from home require considerable and taxing effort and are for medical reasons or denominational services or infrequently or of short duration when for other reasons) because: Certification for Home Health Services: Based on the above findings, I certify that this patient is confined to the home and needs intermittent prison care, physical therapy and/or speech therapy or continues to need occupational therapy. The patient is under my care, and I have initiated the establishment of the plan of care. This patient will be followed by a physician who will periodically review the plan of care. Total Time Total Time Spent Total Time Spent (In Minutes): 46
[2024-11-01 14:21] VITALS: PULSE 61; RESP 16; TEMP 97.2; O2SAT 92
[2024-11-01 15:15] VITALS: BP 106/59
== END 2024-11-01 15:58 | disposition home health service (06) | DRG 638 ==
LOC: ED 14:54 → 2S 17:22 → SUATTDRO 17:22 → 2S 19:58 → 3N 10-29 20:53